=== PATIENT | male | born 1950 | race Caucasian/White ===

== ENCOUNTER → 2018-01-03 07:11 | Outpatient (CLI) | payer MEDICARE, OTHER, SELFPAY ==
--- NOTE | 2018-01-03 | DI.MRI.S_ITS ---
PROCEDURE: MR KNEE LT WO CON INDICATIONS: INTERNAL DERANGEMENT OF LEFT KNEE TECHNIQUE: Noncontrast sagittal PD fast spin echo and T2 fast spin echo with fat saturation, sagittal 3-D FLASH with fat saturation; coronal T1 spin echo and PD fast spin echo with fat saturation, and axial PD fast spin echo with fat saturation through the knee. COMPARISON: None. FINDINGS: Image quality: Excellent. Menisci: There is radial tearing of the posterior horn medial meniscus at the meniscal root ligament insertion site. There is a horizontally oriented linear high T2 signal intensity traversing the posterior horn medial meniscus, with superior articular surface extension, indicating horizontal tearing. Lateral meniscal body demonstrates degenerative fraying of the free edge, and is otherwise intact. Cruciate ligaments: The anterior and posterior cruciate ligaments appear intact. Medial structures: The medial collateral ligament appears intact. The posterior oblique ligament, semimembranosus tendon insertions, oblique popliteal ligament, and meniscocapsular junction appear intact. Visualized portions of the pes anserinus tendons appear normal. Moderate medial bursal fluid. 27 mm diameter ganglion cyst at the posterior medial aspect of the medial femoral condyle. Lateral structures: The lateral collateral ligament, long and short heads of the biceps femoris tendon appear intact. The popliteus tendon appears normal; the popliteofibular ligament appears intact. The posterosuperior and anteroinferior popliteomeniscal fascicles appear intact. The arcuate and fabellofibular ligaments appear intact, on either side of the lateral inferior geniculate artery. Iliotibial band appears normal. Anterior structures: The quadriceps and patellar tendons appear intact. Patellar alignment is normal. No femoral trochlear dysplasia or ventral trochlear prominence. No edema in the infrapatellar fat pad. Bones and cartilage: No bone marrow contusions or fractures. Mild articular cartilage loss overlies the patellar apex. Moderate to severe diffuse articular cartilage loss overlies the weightbearing aspects of the medial femoral condyle and medial tibial plateau. Joint space: There is a small knee joint effusion. No London's cyst. Normal appearing synovial plicae are incidentally noted. IMPRESSION: 1. Medial meniscal tearing. 2. Degenerative fraying of the free edge of the lateral meniscal body. 3. Medial and patellofemoral compartment cartilage loss. 4. Medial bursitis. 5. Small knee joint effusion. Ganglion cyst adjacent to the medial femoral condyle. Dictated by: Emerald Willoughby M.D. on 01/03/2018 at 12:11 Approved by: Emerald Willoughby M.D. on 01/03/2018 at 12:44
== END ==
PROVIDERS: Family Provider Internal Medicine; PCP Internal Medicine; Visit Provider Orthopaedic Surgery
DX: S83.242A Other tear of medial meniscus, current injury, left knee, initial encounter (principal); M70.52 Other bursitis of knee, left knee; M25.462 Effusion, left knee; M67.462 Ganglion, left knee
CPT/HCPCS: 73721

== ENCOUNTER → 2018-01-23 08:53 | Outpatient (CLI) | payer MEDICARE, OTHER, SELFPAY ==
[2018-01-23 09:38] LABS: Add Manual Diff / Slide Review NO; Basophils Percent Auto 0.6 % (0-2); Eosinophils Percent Auto 1.6 % (2-4); Hematocrit 43.6 % (41-53); Lymphocytes Percent Auto 23.5 % (25-40); Mean Corpuscular HGB Conc 34.3 % (30-36); Mean Corpuscular Hemoglobin 31.5 PG (26-34); Mean Corpuscular Volume 91.9 fL (80-100); Monocytes Percent Auto 8.2 % (3-14); Neutrophils Absolute Auto 3400 /uL (3000-5900); Neutrophils Percent Auto 66.1 % (50-75); Platelet Count 201 X10^3/uL (150-400); Red Blood Cell Count 4.75 X10^6/uL (4.5-5.9); Red Cell Distribution Width 13.4 % (11.6-14.8); White Blood Cell Count 5.1 X10^3/uL (4.5-11.0)
[2018-01-23 10:04] LABS: Alanine Aminotransferase 36 IU/L (21-72); Albumin 4.1 g/dL (3.5-5.0); Albumin Globulin Ratio 1.6 (1.0-2.8); Alkaline Phosphatase 53 U/L (38-126); Aspartate Aminotransferase 23 IU/L (17-59); BUN Creatinine Ratio 34.3 (6-22); Bilirubin Total 1.3 mg/dL (0.2-1.3); Blood Urea Nitrogen 24 mg/dL (9-20); Calcium 9.1 mg/dL (8.4-10.2); Carbon Dioxide 26 mmol/L (22-32); Chloride 101 mmol/L (98-107); Cholesterol 160 mg/dL (140-199); Estimated Glomerular Filt Rate > 60.0 mL/min (>60); Globulin 2.5 g/dL (1.7-4.1); Glucose 97 mg/dL (80-110); HDL Cholesterol 57 mg/dL (40-60); HEMOLYSIS < 15 (0-50); LDL Cholesterol Calculated 83 mg/dL (<100); Potassium 4.5 mmol/L (3.4-5.1); Sodium 138 mmol/L (137-145); Total Protein 6.6 g/dL (6.3-8.2); Triglycerides 99 mg/dL (35-150)
== END ==
PROVIDERS: Family Provider Internal Medicine; PCP Internal Medicine; Visit Provider Internal Medicine
DX: I25.10 Atherosclerotic heart disease of native coronary artery without angina pectoris (principal); I10 Essential (primary) hypertension; N40.1 Benign prostatic hyperplasia with lower urinary tract symptoms
CPT/HCPCS: 36415; 80053; 80061; 84153; 85025

== ENCOUNTER → 2018-03-01 07:21 | Outpatient (CLI) | payer MEDICARE, OTHER, SELFPAY ==
--- NOTE | 2018-03-01 | DI.MRI.S_ITS ---
PROCEDURE: MR LUMBAR SPINE WO CON INDICATIONS: STRAIN OF MUSCLE FASCIA/TENDON LOWER BACK TECHNIQUE: Noncontrast sagittal T1 spin echo and T2 fast echo, sagittal STIR, axial T1 and T2 fast spin echo through the lumbar spine. In cases with scoliosis, additional coronal T2 fast spin echo may be performed. COMPARISON: [facility], , L-SPINE WITHOUT CONTRAST, 11/18/2013, 9:22. FINDINGS: Image quality: Excellent. Alignment and Curvature: No plain films are available for comparison, for numbering purposes. Thus, for the purposes of this examination, 5 lumbar type vertebral bodies will be presumed. This should be confirmed with plain films, prior to any lumbar spinal intervention.There is mild grade 1 retrolisthesis of L1 on L2, L2 on L3, and L3 on L4. Mild grade 1 anterolisthesis of L4 on L5. Mild grade 1 retrolisthesis of L5 on S1. Bone Marrow: Marrow is of normal overall signal. No acute vertebral body compression fractures. Moderate reactive signal within the endplates adjacent to the L5-S1 intervertebral discs. Mild reactive signal within the endplates adjacent to the L2-L3, L3-L4, and L4-L5 intervertebral discs. Spinal Cord: Conus medullaris terminates at the L1-L2 disc space level. Visualized cord demonstrates normal signal and size. Paraspinous Soft Tissues: No paravertebral masses. L1-L2: Mild disc desiccation and diffuse disc bulge, with superimposed left paracentral protrusion. Mild facet and ligamentum flavum hypertrophy. Mild canal stenosis. Mild bilateral foraminal stenosis. No change. L2-L3: Moderate disc height loss and desiccation. Moderate diffuse disc bulge. Mild facet hypertrophy. Moderate ligamentum flavum hypertrophy. Mild epidural lipomatosis. There is increased, moderate canal stenosis. There is increased, mild left and moderate right foraminal stenosis. L3-L4: Moderate disc desiccation and diffuse disc bulge. Mild disc height loss. Moderate facet and ligament hypertrophy. Mild epidural lipomatosis. There is increased, severe canal stenosis. There is increased, moderate foraminal stenosis bilaterally, right portal and left. L4-L5: Mild disc desiccation and disc height loss. Mild diffuse disc bulge. Moderate facet and ligamentum flavum hypertrophy. Increased, moderate canal stenosis. Increased, mild foraminal stenosis bilaterally. L5-S1: Severe disc height loss and desiccation. Moderate diffuse disc bulge/osteophyte. Mild facet hypertrophy bilaterally. Mild canal stenosis. Mild foraminal stenosis bilaterally. No change. IMPRESSION: 1. Plain films of the lumbar spine are recommended for numbering purposes, prior to any lumbar spinal intervention. 2. Multilevel degenerative disc and facet disease, ligamentum flavum hypertrophy, and epidural lipomatosis. 3. Increased, severe L3-L4 canal stenosis. Increased, moderate L2-L3 and L4-L5 canal stenoses. 4. Multilevel foraminal stenoses, worst at L3-L4 bilaterally. Dictated by: Emerald Willoughby M.D. on 03/01/2018 at 9:02 Approved by: Emerald Willoughby M.D. on 03/01/2018 at 9:08
== END ==
PROVIDERS: Family Provider Internal Medicine; PCP Internal Medicine; Visit Provider Physician Assistant Surgical
DX: S39.012A Strain of muscle, fascia and tendon of lower back, initial encounter (principal); M51.36 Other intervertebral disc degeneration, lumbar region; M48.061 Spinal stenosis, lumbar region without neurogenic claudication
CPT/HCPCS: 72148

== ENCOUNTER → 2018-05-23 11:11 | Outpatient (CLI) | payer MEDICARE, OTHER, SELFPAY ==
[2018-05-23 12:09] LABS: Add Manual Diff / Slide Review NO; Basophils Percent Auto 0.6 % (0-2); Eosinophils Percent Auto 0.8 % (2-4); Hematocrit 44.4 % (41-53); Lymphocytes Percent Auto 22.9 % (25-40); Mean Corpuscular HGB Conc 33.7 % (30-36); Mean Corpuscular Hemoglobin 31.6 PG (26-34); Mean Corpuscular Volume 93.6 fL (80-100); Neutrophils Absolute Auto 3000 /uL (3000-5900); Neutrophils Percent Auto 66.7 % (50-75); Platelet Count 221 X10^3/uL (150-400); Red Blood Cell Count 4.75 X10^6/uL (4.5-5.9); Red Cell Distribution Width 13.4 % (11.6-14.8); White Blood Cell Count 4.5 X10^3/uL (4.5-11.0)
[2018-05-23 12:35] LABS: Alanine Aminotransferase 46 IU/L (21-72); Albumin 4.4 g/dL (3.5-5.0); Alkaline Phosphatase 43 U/L (38-126); Aspartate Aminotransferase 28 IU/L (17-59); Bilirubin Total 1.3 mg/dL (0.2-1.3); Globulin 2.2 g/dL (1.7-4.1); HEMOLYSIS < 15 (0-50); Total Protein 6.6 g/dL (6.3-8.2)
== END ==
PROVIDERS: Family Provider Internal Medicine; PCP Internal Medicine; Visit Provider Podiatrist
DX: B35.1 Tinea unguium (principal)
CPT/HCPCS: 36415; 80076; 85025

== ENCOUNTER → 2018-07-09 11:43 | Outpatient (CLI) | payer MEDICARE, OTHER, SELFPAY ==
[2018-07-09 12:06] LABS: Add Manual Diff / Slide Review NO; Basophils Percent Auto 0.7 % (0-2); Eosinophils Percent Auto 0.7 % (2-4); Hematocrit 43.5 % (41-53); Hemoglobin 14.8 g/dL (13.5-17.5); Lymphocytes Percent Auto 26.7 % (25-40); Mean Corpuscular HGB Conc 33.9 % (30-36); Mean Corpuscular Hemoglobin 31.4 PG (26-34); Mean Corpuscular Volume 92.5 fL (80-100); Monocytes Percent Auto 8.7 % (3-14); Neutrophils Absolute Auto 2600 /uL (3000-5900); Neutrophils Percent Auto 63.2 % (50-75); Platelet Count 198 X10^3/uL (150-400); Red Blood Cell Count 4.71 X10^6/uL (4.5-5.9); Red Cell Distribution Width 13.2 % (11.6-14.8); White Blood Cell Count 4.1 X10^3/uL (4.5-11.0)
[2018-07-09 13:07] LABS: Alanine Aminotransferase 37 IU/L (21-72); Albumin 4.2 g/dL (3.5-5.0); Albumin Globulin Ratio 1.9 (1.0-2.8); Alkaline Phosphatase 45 U/L (38-126); Aspartate Aminotransferase 22 IU/L (17-59); Bilirubin Total 0.9 mg/dL (0.2-1.3); Bilirubin Unconjugated 0.7 mg/dL (0.0-1.1); Globulin 2.2 g/dL (1.7-4.1); HEMOLYSIS < 15 (0-50); Total Protein 6.4 g/dL (6.3-8.2)
== END ==
PROVIDERS: Family Provider Internal Medicine; PCP Internal Medicine; Visit Provider Podiatrist
DX: B35.1 Tinea unguium (principal); B35.3 Tinea pedis
CPT/HCPCS: 36415; 80076; 85025

== ENCOUNTER → 2018-09-02 13:18 | Outpatient (CLI) | payer MEDICARE, OTHER, SELFPAY ==
[2018-09-02 14:27] LABS: Hematocrit 45.6 % (41-53); Hemoglobin 15.5 g/dL (13.5-17.5); Mean Corpuscular HGB Conc 34.1 % (30-36); Mean Corpuscular Hemoglobin 31.8 PG (26-34); Mean Corpuscular Volume 93.4 fL (80-100); Platelet Count 200 X10^3/uL (150-400); Red Blood Cell Count 4.88 X10^6/uL (4.5-5.9); Red Cell Distribution Width 13.7 % (11.6-14.8); White Blood Cell Count 4.5 X10^3/uL (4.5-11.0)
[2018-09-02 14:37] LABS: BUN Creatinine Ratio 23.8 (6-22); Blood Urea Nitrogen 19 mg/dL (9-20); Calcium 9.4 mg/dL (8.4-10.2); Carbon Dioxide 28 mmol/L (22-32); Chloride 99 mmol/L (98-107); Estimated Glomerular Filt Rate > 60.0 mL/min (>60); Glucose 82 mg/dL (80-110); HEMOLYSIS < 15 (0-50); Potassium 4.4 mmol/L (3.4-5.1); Sodium 137 mmol/L (137-145)
== END ==
PROVIDERS: Family Provider Internal Medicine; PCP Internal Medicine; Referring Provider Orthopaedic Surgery; Visit Provider Orthopaedic Surgery
DX: Z01.818 Encounter for other preprocedural examination (principal)
CPT/HCPCS: 36415; 80048; 85027; 93005

== ENCOUNTER 2018-09-17 05:39 | Inpatient (IN) | payer MEDICARE, OTHER, SELFPAY ==
[2018-09-11 12:47] VITALS: BMI 26.6
[2018-09-17] VITALS (20 sets, daily range): BP systolic 83–137; BP diastolic 40–80; PULSE 64–87; RESP 6–19; TEMP 36.3–36.9; O2SAT 93–100; BMI 26.6
[2018-09-17] MEDS: LACTATED RINGERS 1,000 ML 42 ML IV ×3 (07:34→12:48)
--- NOTE | 2018-09-17 07:40 | PC.NURSE ---
Day shift: Pt is not on AC unit at this time.
[2018-09-17] MEDS: CEFAZOLIN 2 GM/100 ML FROZ.PIGGY IV ×3 (07:47→23:50)
--- NOTE | 2018-09-17 07:49 | PM.PREOP ---
Pre-operative Note Interval Note History & Physical reviewed/Exam performed by Physician: Yes Changes to H&P: No
--- NOTE | 2018-09-17 08:40 | SUR.OPER ---
Prone on spine table, head in foam head support, padded chest and pelvic supports, gel pad at knees, lower legs supported by pillows; nipples, genitalia and toes free of pressure, arms secured on foam padded arm boards at <90 degrees abduction. Tape over blanket at thigh secured to table.
[2018-09-17] MEDS: VANCOMYCIN 1,000 MG VIAL 1000 MG TOP (08:52)
[2018-09-17] MEDS: SODIUM CHLORIDE 0.9% 1,000 ML, GENTAMICIN 80 MG IRR (08:53)
[2018-09-17] MEDS: BUPIVACAINE 0.5% (PF) 4 ML, MORPHINE-PF 4 MG, BUTORPHANOL 1 MG, fentaNYL 100 MCG INJ (08:57)
[2018-09-17] MEDS: THROMBIN (RECOMBINANT) 5,000 UNIT VIAL 5000 UNIT TOP (08:59)
--- NOTE | 2018-09-17 11:32 | PM.OP.1 ---
Operative Date/Time/Diagnoses Date of procedure: 09/17/18 Time of procedure: 11:32 Pre-op diagnosis: Lumbar stenosis with radiculopathy Lumbar spondylolisthesis History lumbar laminectomy Post-op diagnosis: same Procedure & Clinicians Procedure: L4-5 revision laminectomy L3-4 laminectomy L4-5 TLIF (post/post innerbody fusion) with cage L4, L5 screws Iliac crest bone graft Use of microscope Placement of epidural catheter Same procedure as scheduled: Yes Indications: [age] year old male with intractable pain from stenosis. They had failed conservative management and requested operative intervention. Risks and benefits of surgery were discussed and appropriate consents were obtained. Surgeon: Inderjit Allison Inspector Purchased Parts: Parisa Nguyen Anesthesia Type: General Operative Notes Findings: None Closure Type: primary Specimen(s): none sent Prosthetic devices, grafts, tissues, transplants, or devices: Nuvasive Reline MAS screws Globus rise cage Applied: catheter Estimated Blood Loss (mL): 20 Procedure in detail: The patient was brought to the operating room and intubated on the table. A time-out was performed. They were then rolled over to the well-padded Reese table in the prone position. Preoperative antibiotics were given. The back was prepped and draped in the standard sterile fashion. Using fluoroscopy, a 4 cm longitudinal incision was made to the right of the midline. We used Bovie to come down to and split the lumbodorsal fascia. Using fluoroscopy and monitoring, we then percutaneously placed Jamshidi needles down the pedicles of L4 and L5 on the right side. These were changed out to guidewires and then we tapped and then placed the NuVasive MAS Reline screw shanks. We then opened up the retractors and used Bovie to clear up the posterolateral gutter as well as medially along the lamina to the spinous processes. A bur was used to decorticate the transverse processes. We brought in the microscope. Using a combination of bur and Kerrison rongeurs, a revision laminectomy was performed from the right side. There is large amount of scar in the inferior aspect of this decompression that had come up from his previous laminectomy. We had to work carefully dissect the scar tissue out of the way and freed off the nerve roots and also to free up the dura. Therefore this was separate and distinct from a standard approach as this was revision decompression level. We cleared over past the midline and carefully depressed the dura until we were able to decompress the opposite side. We cleared out the neural foramen. This completed the laminectomy at L4-5. We then began the TLIF prep. A complete facetectomy was performed on this side at L4-5. We carefully cleaned up the remainder of the foramen until we could easily retract the exiting root as well as clearing medially below the dura and expose the disc space. The disc was prepped with bipolar and then an annulotomy was performed. We performed a diskectomy using a combination of paddles, amado, pituitaries, and curettes. We distracted the disc using a paddle and locked the retractor in an open position. We then filled the disc space with Osteocel bone graft. We then placed the globus Rise cage under fluoroscopy and then filled this in with more bone graft. The distraction on the retractor was released to compress down. This completed the posterior interbody fusion portion of the TLIF at L4-5. We then removed the retractor blade from the L5 screw and then rotated the blade on the L4 screw to go cephalad and then used the retractor blade as well as the retractor system to expose the L3-4 level. We cleared off the soft tissue. We then brought in the microscope. A combination of a bur and Kerrisons were used to perform a L3-4 laminectomy. We carefully depress the dura and reach to the opposite side to completely decompress this. At the end we could swipe the ball probe cephalad caudally and into the neural foramen everything was opened. We then removed the retractor blades. We then placed the screw heads, ajay, and locked down the set screws. The wound was copiously irrigated. A small stab incision was made over the PSIS. We used a Jamshidi needle to aspirate several mL of bone marrow from the pelvis. This was mixed with the remaining Osteocell and combined with all of the locally harvested bone graft and placed in the posterolateral gutter for the posterior fusion of the TLIF at L4-5. An epidural catheter was then placed in the spinal canal by carefully depressing the dura and advancing it 6 cm cephalad under the remaining lamina of L3 without resistance. The muscle fascia was closed. The catheter was then injected with a solution containing 4 mL of 0.5% Marcaine, 1 mg Stadol, 4 mg Duramorph, and 100 mcg of fentanyl. This was injected without resistance and the catheter was pulled. We then went to the opposite side. Again using fluoroscopy, a 3 cm incision was made and Bovie was used to come down to split the fascia. Using neural monitoring and fluoroscopy, Jamshidi needles were advanced down the pedicles of L4 and L5 on the left side. These were switched over guidewires, tapped, and screws placed. We then placed a ajay and locked the set screws on this side. The wound was irrigated. The fascia was closed. Vancomycin powder was placed in the wounds. The superficial and skin were closed. A sterile dressing was placed. The patient was then rolled over extubated and brought to recovery room without complications. Complications: none Condition: stable Disposition: PACU Plan for aftercare: Inpatient. Up with physical therapy.
--- NOTE | 2018-09-17 11:58 | DI.RAD.S_ITS ---
PROCEDURE: XR LUMBAR SPINE 2-3V INDICATIONS: L4-5 TLIF TECHNIQUE: 2 views of the lumbar spine were acquired. COMPARISON: None. FINDINGS: There is discectomy and posterior fusion at L4-L5. Pedicular rods and fusion screws are in expected position. IMPRESSION: Discectomy and posterior fusion at L4-L5. Dictated by: Cornelia Macias M.D. on 09/17/2018 at 12:20 Approved by: Cornelia Macias M.D. on 09/17/2018 at 12:25
--- NOTE | 2018-09-17 12:06 | SUR.PHASEI ---
1ml tuan-synephrine given for map of [address] Seaman.
[2018-09-17] MEDS: HYDROMORPHONE 2 MG INJ 0.5 MG IV ×3 (12:32→13:08)
--- NOTE | 2018-09-17 12:34 | SUR.PHASEI ---
1ml tuan-synephrine given for map of 58
--- NOTE | 2018-09-17 13:05 | SUR.PHASEI ---
Report called to SARITA Maciel.
--- NOTE | 2018-09-17 13:29 | SUR.PHASEI ---
Pt transferred to the floor. Report to [facility]. VS stable. IV saline locked. Back dressing CDI. Belongings bag with patient.
--- NOTE | 2018-09-17 13:35 | PC.NURSE ---
Day shift: Arrived on unit from PACU at approx 1315. He is A&Ox3. States that he has some minor back dicomfort at this time. He spouse at bedside for support. VS ok. Using IS as directed. SCD's in place. Oriented to room and call light. 4x4 gauze with tegaderm is CDI at op-site. Kohli with clear yellow. Agrees to not get OOB w/o help from staff.
[2018-09-17] MEDS: LACTATED RINGERS 1,000 ML 125 ML IV ×2 (13:58→22:35)
[2018-09-17] MEDS: hydrOXYzine pamoate 25 MG CAPSULE PO ×2 (14:15→21:32)
[2018-09-17] MEDS: HYDROCODONE/ACET 5/325 TABLET 1 TAB PO ×2 (14:15→21:33)
--- NOTE | 2018-09-17 17:08 | PT.IIE ---
Current Diagnoses Spondylolisthesis, lumbar region (09/17/18) Spinal stenosis, lumbar region with neurogenic claudication (09/17/18) Surgery Performed Operation Date: 09/17/18 07:45 Actual Procedures p L3-4,L4-5 Laminectomy, L4-5 Instru. 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) Status post cataract extraction and insertion of intraocular lens of right eye (Acute 08/01/11) Medical History (Last Updated 09/11/18 @ 14:45 by Abigail Simon RN) Arthritis (Acute) Orantes's esophagus (Acute) CAD (coronary artery disease) (Acute) Depression (Acute) Excessive drinking alcohol (Acute) GERD (gastroesophageal reflux disease) (Acute) HTN (hypertension) (Acute) Heart murmur (Acute) Hyperlipidemia (Acute) Memory changes (Acute) Myocardial infarction (Acute ~2009) Numbness and tingling (Acute) Psoriasis (Acute) Seizures (Acute) Physical Therapy Inpatient Evaluation/Re-Eval M1 PT/OT-IP Prior Functional Status Start: 09/17/18 16:50 Freq: NEEDED Status: Active Protocol: Document 09/17/18 16:50 [facility] (Rec: 09/17/18 17:08 [facility] [id number]) Medical Review Prior Functional Status Medical History Reviewed Yes Diet/Fluid Consistency Regular Communication WNL Mobility and Gait Indep w/o AD but was limited in time spent standing & amb d /t LBP Activities of Daily Living and IADL's indep Social History Household Members spouse Living Arrangements Apartment/Condo Number of Floors (Floors) Two Floors Number of Stairs To Enter/Railing? 1STE through garage; has 2nd level to basement which he does sometimes go down to w/ rail. Home Environment Standard Height Toilet Walk in Shower Home Equipment Front Wheel Walker Straight Cane Raised Toilet Seat w/Armrests Shower Seat without Backrest Long Handled Shoe Horn Braille Transcriber Sock Aid Employment Status Retired M2 PT-IP Current Condition Start: 09/17/18 16:50 Freq: NEEDED Status: Active Protocol: Document 09/17/18 16:50 [facility] (Rec: 09/17/18 17:08 [facility] [id number]) Physical Therapy Current Condition Current Condition Evaluation Date 09/17/18 Treatment Diagnosis L4-5 TLIF Onset Date 09/17/18 Precautions Lumbar Precautions Log Roll No Twisting Limit Bending Lifting Restriction of 10 lbs Gait Belt above Incisional Area Weight Bearing Status Weight Bearing Status Weight Bear as Tolerated M3 PT-IP Subjective Start: 09/17/18 16:50 Freq: NEEDED Status: Active Protocol: Document 09/17/18 16:50 [facility] (Rec: 09/17/18 17:08 [facility] [id number]) Subjective Physical Therapy Visit Type Type Initial Evaluation Visit Start Time 16:00 Visit Stop Time 16:50 Total Visit Minutes 50 Number of ASW/ASUW TACTICAL AIR CONTROLLER Visits 0 Physical Therapy Visit Comments Patient Comments Pt agreeable to get up. Pt wants to get moving to try to work on getting better Therapy Pain Assessment Pain When Pain Assessed During Mobility Pain Present Pain Present Pain Reported M4 PT-IP Mobility and Gait Start: 09/17/18 16:50 Freq: NEEDED Status: Active Protocol: Document 09/17/18 16:50 [facility] (Rec: 09/17/18 17:08 [facility] [id number]) PT-Bed Mobility Assessment Rolling Type of Rolling Log Rolling Level of Assist Contact Guard Assistance Supine to Sit Supine to Sit Minimal Assistance Sit to Supine Sit to Supine Contact Guard Assistance Scooting Scooting to Edge of Bed Standby Assistance Scooting Up and Down in Bed Standby Assistance PT-Transfer Assessment Sit to and From Stand Sit to and from Stand Moderate Assistance Use of Upper Extremities Equipment Transfer Assistive Device Gait Belt Front Wheeled Walker Orthotic/Prosthetic Devices or Brace: No Transfers Transfer Destination Chair Transfer Technique Stand Step Pivot Transfer Ability Level of Assist Minimal Assistance Comments Mobility Comments Pt required mod A for sit to stand from bed and min A from chair. Min A for transfers with FWW d/t LE buckling PT-Balance Assessment Sitting Balance and Reactions Static Sitting Balance Ability Good Dynamic Sitting Balance Ability Fair Standing Balance and Reactions Static Standing Balance Ability Poor Dynamic Standing Balance Ability Poor Device Used FWW M5 PT-IP Objective Assessments Start: 09/17/18 16:50 Freq: NEEDED Status: Active Protocol: Document 09/17/18 16:50 [facility] (Rec: 09/17/18 17:08 [facility] [id number]) Orientation Orientation/Cognition Level of Alertness Alert Strength Lower Extremity Strength Assessment Bilaterally Impaired M6 PT-IP Treatment Start: 09/17/18 16:50 Freq: NEEDED Status: Active Protocol: Document 09/17/18 16:50 [facility] (Rec: 09/17/18 17:08 [facility] [id number]) Physical Therapy Treatment Education Education Provided Precautions Post-Op Packet Safety M7 PT-IP Assessment and Plan Start: 09/17/18 16:50 Freq: NEEDED Status: Active Protocol: Document 09/17/18 16:50 [facility] (Rec: 09/17/18 17:08 [facility] [id number]) PT Summary Assessment and Plan Potential Rehabilitation Potential Excellent Status of Condition at Evaluation Evolving Summary Impairments Pain ROM Strength Balance Bed Mobility Transfers Gait Assessment Summary Pt had L4-5 TLIF today and is very motivate to return to activity. He is very cooperative with therapist and was able to do bed mobility and transfer today with 1 PA and wa slimited by IVAN monzon and requiring assist to get standing. Goals Bed Mobility Goal Independent Transfer Goal Independent Gait Goal Independent Gait Distance 150ft Other Goals up/down 1 step without rail and 15 steps with rail SBA Days to Meet Goals 4 Frequency of Treatment Frequency Of Treatment Twice a Day Treatment Plan Physical Therapy Treatment Plan Bed Mobility Training Transfer Training Gait Training Therapeutic Exercise Balance Retraining Post Op Education Discharge Planning Hot or Cold Pack Neuromuscular Re-ed Manual Therapy Recommendations To Nursing Amount of Assist Needed 1 Person Assist Discharge Recommendations PT Discharge Recommendations Home with Assistance Outpatient PT
[2018-09-17] MEDS: HYDROCODONE/ACET 5/325 TABLET 2 TAB PO (17:14)
[2018-09-17] MEDS: ATORVASTATIN 20 MG TABLET 80 MG PO (21:25)
[2018-09-17] MEDS: SENNOSIDES 8.6 MG TABLET 17.2 MG PO (21:25)
[2018-09-17] MEDS: DOCUSATE 100 MG CAPSULE PO (21:25)
[2018-09-17] MEDS: lamoTRIgine 100 MG TABLET 150 MG PO (21:25)
[2018-09-17] MEDS: GABAPENTIN 600 MG TABLET PO (21:25)
--- NOTE | 2018-09-17 23:47 | PC.NURSE ---
Evening shift note: Manolo is oriented to situation, forgetful to events & sometimes asks nurse same question over again. Told me he normally has problems with short-term memory loss. CIWA score was 1 for auditory sensation to IV pump, patient at one point asked me to turn it off, instead I covered pump with blanket to lessen the noise which he said helped. VS stable. 2L o2 applied which is maintaining his sat 94-98% (desats when dozing to 85-88%) Continuous pulse ox monitoring in place. Cosmos through night DRIVER GUIDE noticed small erythemic spot on left cheek from NC, I applied soft gauze to NC to protect his cheeks. Back drsg CDI, logrolling technique reinforced. Tonight he wanted to stand up and stood at bedside with DRIVER GUIDE assist. Reporting pain 7/10, medicated with [place] 1 tab and Vistaril 1 tab which he says brings pain down to a 2, able to sleep intermittently throughout evening. Refused dinner, ate soup pudding & sandwich at bedtime, denies any nausea. IVF infusing to IV with no difficulty. Pt calm, cooperative & using call button appropriately. Reminded to call nurse for any needs/concerns.
--- NOTE | 2018-09-18 00:59 | PC.NURSE ---
Addendum entered by Geri Morales R.N. 09/18/18 04:22: Patient has been mostly sleeping. Now awake and states pain is 5/10; assisted to reposition onto left side and medicated with Vicodin + Vistaril. RA sat 100%. CMS remains intact. Has had SCD's off as machine kept alarming intermittently so now new SCD machine obtained and SCD's reapplied. Original Note: 0000 Patient is alert and oriented but has some short term memory loss and seems anxious. Breath sounds CTA; on oxygen at 1L/min per NC with sat of 99%. HRR. Denies nausea. BT present and passing flatus. Indwelling catheter is patent with good UOP of 1300cc on previous shift. Is able to move self in bed. Dressing to back is CDI. States pain is currently 2/10 and tolerable having just received Vicodin/Vistaril at 2132. CMS intact although feet are cool to touch. Foot SCD's on. CIWA score is 1. Fall risk score is moderate but due to STM problems bed alarm is activated.
[2018-09-18] MEDS: HYDROCODONE/ACET 5/325 TABLET 1 TAB PO (04:10)
[2018-09-18] MEDS: hydrOXYzine pamoate 25 MG CAPSULE PO ×2 (04:10→15:52)
[2018-09-18 04:19] VITALS: BP 125/65; PULSE 68; RESP 16; TEMP 36.6; O2SAT 100
[2018-09-18 06:15] LABS: Hematocrit 36.6 % (41-53); Hemoglobin 12.8 g/dL (13.5-17.5)
[2018-09-18 06:37] LABS: Blood Urea Nitrogen 14 mg/dL (9-20); Calcium 8.4 mg/dL (8.4-10.2); Carbon Dioxide 28 mmol/L (22-32); Chloride 101 mmol/L (98-107); Estimated Glomerular Filt Rate > 60.0 mL/min (>60); Glucose 118 mg/dL (80-110); HEMOLYSIS < 15 (0-50); Potassium 4.3 mmol/L (3.4-5.1); Sodium 136 mmol/L (137-145)
[2018-09-18 07:25] VITALS: BP 120/65; PULSE 76; RESP 16; TEMP 36.7; O2SAT 96
--- NOTE | 2018-09-18 08:07 | PM.PNPO.1 ---
Subjective Date Patient Seen: 09/18/18 Time Patient Seen: 08:07 Interval history: Pain is about a 3 laying in bed. No leg pain but he does feel weaker on the right leg. Exam Vital Signs (past 8 hours): - 09/18/18 04:19 Temperature 97.9 F Pulse Rate 68 Respiratory Rate 16 Blood Pressure 125/65 Pulse Oximetry 100 Oxygen Delivery Method Nasal Cannula Const Orientation: alert and oriented x3 Back/Spine/Pelvis Other: Dressing CDI. 5/5 motor both lower extremities except for 5-/5 right quadriceps Objective Labs Result Diagrams: 09/18/18 05:58 09/18/18 05:58 Labs: Laboratory Results - last 24 hr 09/18/18 09/18/18 05:58 05:58 Hgb 12.8 L Hct 36.6 L Sodium 136 L Potassium 4.3 Chloride 101 Carbon Dioxide 28 BUN 14 Creatinine 0.70 Estimated GFR > 60.0 BUN/Creatinine Ratio 20.0 Glucose 118 H Calcium 8.4 Assessment & Plan Post-op Postoperative Procedures Operation Date: 09/17/18 07:45 Actual Procedures Side Surgeon p L3-4,L4-5 Laminectomy, L4-5 Instru. fusion w/bone graft Inderjit Allison MD He is doing well. Some slight quadriceps weakness, most likely from retraction of the nerve root during surgery. He is able to walk on it, and we will continue with mobilization with physical therapy. Anticipate discharge home tomorrow. Quality VTE Deep Vein Thrombosis/Pulmonary Embolism Present on Admission: No
[2018-09-18] MEDS: HYDROCODONE/ACET 5/325 TABLET 2 TAB PO ×4 (08:08→20:31)
[2018-09-18] MEDS: lamoTRIgine 100 MG TABLET 150 MG PO ×2 (08:09→20:29)
[2018-09-18] MEDS: LISINOPRIL 10 MG TABLET PO (08:09)
[2018-09-18] MEDS: GABAPENTIN 600 MG TABLET PO ×2 (08:09→20:29)
[2018-09-18] MEDS: PANTOPRAZOLE 40 MG TABLET PO (08:10)
[2018-09-18] MEDS: DOCUSATE 100 MG CAPSULE PO ×2 (08:10→20:29)
[2018-09-18] MEDS: ASPIRIN EC 81 MG TABLET PO (08:10)
--- NOTE | 2018-09-18 09:24 | PT.IPTN ---
Current Diagnoses Spondylolisthesis, lumbar region (09/17/18) Spinal stenosis, lumbar region with neurogenic claudication (09/17/18) Surgery Performed Operation Date: 09/17/18 07:45 Actual Procedures p L3-4,L4-5 Laminectomy, L4-5 Instru. fusion w/bone graft - Inderjit Allison MD Physical Therapy Treatment Note M2 PT-IP Current Condition Start: 09/17/18 16:50 Freq: NEEDED Status: Active Protocol: Document 09/17/18 16:50 [facility] (Rec: 09/17/18 17:08 [facility] [id number]) Physical Therapy Current Condition Current Condition Evaluation Date 09/17/18 Treatment Diagnosis L4-5 TLIF Onset Date 09/17/18 Precautions Lumbar Precautions Log Roll No Twisting Limit Bending Lifting Restriction of 10 lbs Gait Belt above Incisional Area Weight Bearing Status Weight Bearing Status Weight Bear as Tolerated M3 PT-IP Subjective Start: 09/17/18 16:50 Freq: NEEDED Status: Active Protocol: Document 09/18/18 09:24 AB (Rec: 09/18/18 12:14 AB [email or web address]) Subjective Physical Therapy Visit Type Type Treatment Note Visit Start Time 09:24 Visit Stop Time 10:08 Total Visit Minutes 44 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 Physical Therapy Visit Comments Patient Comments pt agreeable to do PT Therapy Pain Assessment Pain When Pain Assessed At Rest Pain Present Pain Present Pain Reported Location Back Intensity 3 Scale Used Numeric (1 - 10) M4 PT-IP Mobility and Gait Start: 09/17/18 16:50 Freq: NEEDED Status: Active Protocol: Document 09/18/18 09:24 AB (Rec: 09/18/18 12:14 AB [email or web address]) PT-Bed Mobility Assessment Sit to Supine Sit to Supine Standby Assistance 1 Person Assistance PT-Transfer Assessment Sit to and From Stand Sit to and from Stand Maximum Assistance 1 Person Assistance Use of Upper Extremities Equipment Transfer Assistive Device Gait Belt Front Wheeled Walker Orthotic/Prosthetic Devices or Brace: No Transfers Transfer Destination Bed Transfer Technique Stand Step Pivot Transfer Ability Level of Assist Maximum Assistance 1 Person Assistance Use of Upper Extremities Comments Mobility Comments pt requested to go back to bed after tx session. completed stand step pivot transfer using FWW max A and max cues to prevent R knee from buckling. pt has decrease safety awareness and requires constant cues for safety. pt completed sit to supine SBA and cues for techniques. positioned pt in bed. call light and table within reach. bed alarm set. left pt with spouse. Gait Assessment Gait Gait Assistance Required: Maximum Assistance 1 Person Assist Distance (Feet) 10 Able to Maintain Weight Bearing Status Yes During Gait Assistive Devices Assistive Device Gait Belt Front Wheeled Walker Orthotic/Prosthetic Devices or Brace: No Gait Deviations General Gait Pattern Decreased Feet Clearance Step-to Gait Factors Limiting Gait Function Factors Limiting Gait Function Decreased Activity Tolerance Decreased Strength Difficulty Following Directions Limited Range of Motion Pain Poor Balance Poor Safety Awareness Comments Gait Comments Pt completed sit to stand x 3 max A and max cues for techniques. completed static standing activity to improve RLE control. pt completed ambulation 10 ft x 2 using FWW max A and max cues requiring assist to prevent R knee from buckling. M5 PT-IP Objective Assessments Start: 09/17/18 16:50 Freq: NEEDED Status: Active Protocol: Document 09/17/18 16:50 LR (Rec: 09/17/18 17:08 [facility] [id number]) Orientation Orientation/Cognition Level of Alertness Alert Strength Lower Extremity Strength Assessment Bilaterally Impaired M6 PT-IP Treatment Start: 09/17/18 16:50 Freq: NEEDED Status: Active Protocol: Document 09/18/18 09:24 AB (Rec: 09/18/18 12:14 AB [email or web address]) Physical Therapy Treatment Exercises Exercises Seated Knee Flexion/Extension Education Education Provided Precautions Weight Bearing Status Safety M7 PT-IP Assessment and Plan Start: 09/17/18 16:50 Freq: NEEDED Status: Active Protocol: Document 09/18/18 09:24 AB (Rec: 09/18/18 12:14 AB [email or web address]) PT Summary Assessment and Plan Potential Rehabilitation Potential Fair Summary Impairments Pain ROM Strength Balance Coordination Sensation Tone Cognition Bed Mobility Transfers Gait Activity Tolerance Progress Towards Goals Slow Progress - Other Assessment Summary pt requiring max A with mobility and has (+) R knee buckling. Pt requires max cues for safety. Pt at this time will require SNF rehab to improve strength and functional independence. Goals Bed Mobility Goal Standby Assistance Transfer Goal Standby Assistance Front Wheeled Walker Gait Goal Standby Assistance Front Wheel Walker Gait Distance 125 Other Goals up/down 1 step without rail and 15 steps with rail SBA Days to Meet Goals 5 Frequency of Treatment Frequency Of Treatment Twice a Day Treatment Plan Physical Therapy Treatment Plan Bed Mobility Training Transfer Training Gait Training Therapeutic Exercise Balance Retraining Post Op Education Discharge Planning Hot or Cold Pack Neuromuscular Re-ed Manual Therapy Other Recommendations and Next Treatment bed mobility, ambulation Focus Recommendations To Nursing Amount of Assist Needed 2 Person Assist Discharge Recommendations PT Discharge Recommendations Home with Assistance Outpatient PT
[2018-09-18 11:18] VITALS: BP 103/55; PULSE 63; RESP 16; TEMP 36.8; O2SAT 94
--- NOTE | 2018-09-18 14:40 | PT.IPTN ---
Current Diagnoses Spondylolisthesis, lumbar region (09/17/18) Spinal stenosis, lumbar region with neurogenic claudication (09/17/18) Surgery Performed Operation Date: 09/17/18 07:45 Actual Procedures p L3-4,L4-5 Laminectomy, L4-5 Instru. fusion w/bone graft - Inderjit Allison MD Physical Therapy Treatment Note M2 PT-IP Current Condition Start: 09/17/18 16:50 Freq: NEEDED Status: Active Protocol: Document 09/17/18 16:50 [facility] (Rec: 09/17/18 17:08 [facility] [id number]) Physical Therapy Current Condition Current Condition Evaluation Date 09/17/18 Treatment Diagnosis L4-5 TLIF Onset Date 09/17/18 Precautions Lumbar Precautions Log Roll No Twisting Limit Bending Lifting Restriction of 10 lbs Gait Belt above Incisional Area Weight Bearing Status Weight Bearing Status Weight Bear as Tolerated M3 PT-IP Subjective Start: 09/17/18 16:50 Freq: NEEDED Status: Active Protocol: Document 09/18/18 14:40 AB (Rec: 09/18/18 15:20 AB [email or web address]) Subjective Physical Therapy Visit Type Type Treatment Note Visit Start Time 14:40 Visit Stop Time 15:05 Total Visit Minutes 25 Number of TEXTILE SCRAP SALVAGER Visits 0 Physical Therapy Visit Comments Patient Comments pt agreeable to do PT Therapy Pain Assessment Pain When Pain Assessed At Rest Pain Present Pain Present Pain Reported Location Back Intensity 7 Scale Used Numeric (1 - 10) Description Sharp Tightness Pain Management Techniques Re-positioning Timing of Activity with Medications M4 PT-IP Mobility and Gait Start: 09/17/18 16:50 Freq: NEEDED Status: Active Protocol: Document 09/18/18 14:40 AB (Rec: 09/18/18 15:20 AB [email or web address]) PT-Bed Mobility Assessment Sit to Supine Sit to Supine Standby Assistance PT-Transfer Assessment Sit to and From Stand Sit to and from Stand Maximum Assistance 1 Person Assistance Equipment Transfer Assistive Device Gait Belt Front Wheeled Walker Gait Assessment Gait Gait Assistance Required: Minimum Assistance Moderate Assistance Distance (Feet) 35 Able to Maintain Weight Bearing Status Yes During Gait Assistive Devices Assistive Device Gait Belt Front Wheeled Walker Orthotic/Prosthetic Devices or Brace: No Gait Deviations General Gait Pattern Antalgic Decreased Stride Length Decreased Feet Clearance Factors Limiting Gait Function Factors Limiting Gait Function Decreased Activity Tolerance Decreased Strength Difficulty Following Directions Limited Range of Motion Pain Poor Balance Poor Safety Awareness Comments Gait Comments pt completed ambulation 35 ft using FWW min to mod A and max cues to prevent R knee buckling. pt with (+) R knee slight buckling x 3 with mod A to stabilize knee. M5 PT-IP Objective Assessments Start: 09/17/18 16:50 Freq: NEEDED Status: Active Protocol: Document 09/17/18 16:50 LR (Rec: 09/17/18 17:08 [facility] [id number]) Orientation Orientation/Cognition Level of Alertness Alert Strength Lower Extremity Strength Assessment Bilaterally Impaired M6 PT-IP Treatment Start: 09/17/18 16:50 Freq: NEEDED Status: Active Protocol: Document 09/18/18 14:40 AB (Rec: 09/18/18 15:20 AB [email or web address]) Physical Therapy Treatment Exercises Exercises Quad Sets Education Education Provided Precautions Safety M7 PT-IP Assessment and Plan Start: 09/17/18 16:50 Freq: NEEDED Status: Active Protocol: Document 09/18/18 14:40 AB (Rec: 09/18/18 15:20 AB [email or web address]) PT Summary Assessment and Plan Potential Rehabilitation Potential Fair Summary Impairments Pain ROM Strength Balance Coordination Sensation Tone Cognition Bed Mobility Transfers Gait Activity Tolerance Progress Towards Goals Slow Progress - Other Assessment Summary pt improving slowly requiring mod A but continues to have R knee buckling. set up caregiver training tomorrow ~ 930/1000 am if appropriate. d /c plan depending on progress and if spouse will be able to safely assist pt at home. Goals Bed Mobility Goal Standby Assistance Transfer Goal Standby Assistance Front Wheeled Walker Gait Goal Standby Assistance Front Wheel Walker Gait Distance 125 Other Goals up/down 1 step without rail and 15 steps with rail SBA Days to Meet Goals 5 Frequency of Treatment Frequency Of Treatment Twice a Day Treatment Plan Physical Therapy Treatment Plan Bed Mobility Training Transfer Training Gait Training Therapeutic Exercise Balance Retraining Post Op Education Discharge Planning Hot or Cold Pack Neuromuscular Re-ed Manual Therapy Other Recommendations and Next Treatment bed mobility, ambulation Focus Recommendations To Nursing Amount of Assist Needed 2 Person Assist Discharge Recommendations PT Discharge Recommendations Home with 24/7 Assist Home Health SNF Rehab Other Discharge Recommendations depending on progress: SNF vs home with 24/7 and homehealth PT
--- NOTE | 2018-09-18 14:55 | OT.IP.EVAL ---
Current Diagnoses Spondylolisthesis, lumbar region (09/17/18) Spinal stenosis, lumbar region with neurogenic claudication (09/17/18) Surgery Performed Operation Date: 09/17/18 07:45 Actual Procedures p L3-4,L4-5 Laminectomy, L4-5 Instru. fusion w/bone graft - Inderjit Allison MD Past Medical History (Last Updated 09/11/18 @ 14:45 by Abigail Simon, RN) Arthritis (Acute) Orantes's esophagus (Acute) CAD (coronary artery disease) (Acute) Depression (Acute) Excessive drinking alcohol (Acute) GERD (gastroesophageal reflux disease) (Acute) HTN (hypertension) (Acute) Heart murmur (Acute) Hyperlipidemia (Acute) Memory changes (Acute) Myocardial infarction (Acute ~2009) Numbness and tingling (Acute) Psoriasis (Acute) Seizures (Acute) Surgical History (Last Updated 09/11/18 @ 13:22 by Abigail Simon, RN) History of vasectomy (Acute) Hx of appendectomy (Acute) Hx of heart artery stent (Acute ~2009) Hx of hernia repair (Acute) Hx of microdiscectomy (Acute ~1993) Hx of tonsillectomy (Acute) 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) Status post cataract extraction and insertion of intraocular lens of right eye (Acute 08/01/11) Occupational Therapy Inpatient Evaluation/Re-Eval M1 PT/OT-IP Prior Functional Status Start: 09/17/18 16:50 Freq: NEEDED Status: Active Protocol: Document 09/18/18 14:55 [email or web address] (Rec: 09/19/18 07:48 PJM [id number]) Medical Review Prior Functional Status Medical History Reviewed Yes Diet/Fluid Consistency Regular Communication WNL Mobility and Gait Indep w/o AD but was limited in time spent standing & amb due to LBP Activities of Daily Living and IADL's independent with all self care , assists w/IADLs due to pt's LBP Prior Functional Level (Other details) can provide assist 24/7 after d/c. Social History Household Members spouse Living Arrangements Apartment/Condo Number of Floors (Floors) Two Floors Number of Stairs To Enter/Railing? 1 stair to enter through garage, pt can stay on main level of home Home Environment Standard Height Toilet Walk in Shower Home Equipment Front Wheel Walker Straight Cane Raised Toilet Seat w/Armrests Shower Seat without Backrest Hand Held Shower Long Handled Sponge [employer] Compliance Manager Sock Aid Grab Bars In Shower Employment Status Retired M2 OT-IP Current Condition Start: 09/19/18 07:27 Freq: Status: Active Protocol: Document 09/18/18 14:55 PJM (Rec: 09/19/18 07:48 PJM [id number]) Occupational Therapy Current Condition Current Condition Evaluation Date 09/18/18 Treatment Diagnosis decreased self care, mobility s/p L3-4, L4-5 lami with L4-5 fusion Post Operative Precautions Lumbar Precautions Log Roll No Twisting Limit Bending Lifting Restriction of 10 lbs Gait Belt above Incisional Area M3 OT- IP Subjective and Pain Start: 09/19/18 07:27 Freq: Status: Active Protocol: Document 09/18/18 14:55 PJM (Rec: 09/19/18 07:48 PJM [id number]) OT- Subjective Occupational Therapy Visit Type Type Initial Evaluation Visit Start Time 14:15 Visit Stop Time 14:55 Total Visit Minutes 40 Occupational Therapy Visit Comments Patient Comments Does it usually hurt this much? Patient/Caregiver Goals to have less back pain during daily activities and standing OT Pain Assessment Pain When Pain Assessed After Treatment Pain Present Pain Present Pain Reported Location Back Intensity 8 Scale Used Numeric (1 - 10) Description Aching Acute Management Techniques Distraction Re-positioning Timing of Activity with Medications M4 OT- IP ADL's Start: 09/19/18 07:27 Freq: Status: Active Protocol: Document 09/18/18 14:55 PJM (Rec: 09/19/18 07:48 PJ [id number]) OT [id number] General Evaluation Self-Feeding Ability Independent OT ADL-Grooming General Evaluation Grooming Ability Standby Assistance Areas Needing Assistance Face Washing Comments OT Grooming Comments after set up in bed or chair, pt reports limited standing tolerance prior to surgery due to LBP OT ADL-Oral Care Comments Oral Care Comments did not occur this session OT ADL-Dressing General Eval Upper Body Dressing Ability Standby Assistance Lower Body Dressing Ability Total Assistance Areas Needing Assistance Retrieving/Set-up of Clothing Socks Comments OT Dressing Comments Began education with pt and re: lower body dressing within lumbar spine precautions. OT ADL-Toileting General Evaluation Toileting Ability Total Assistance Areas Needing Assistance Empty Catheter or Colostomy Comments OT Toileting Comments jones still in place OT ADL-Bathing Comments OT Bathing Comments to be assessed as activity tolerance improves M5 OT- IP IADL's Start: 09/19/18 07:27 Freq: Status: Active Protocol: Document 09/18/18 14:55 PJM (Rec: 09/19/18 07:48 PJ [id number]) OT-Instrumental Activities of Daily Living Deficits IADL Deficits Identified Deficits Home Safety Awareness Awareness of Need for Assistance at Home Good Awareness Medication Management Medication Management Caregiver Provides Supervision Medication Management Comments pt states he can be forgetful Money Management Money Management Caregiver Provides Supervision Meal Preparation Meal Preparation Caregiver Provides Assist [employer] Department Supervisor [employer] Department Supervisor Caregiver Provides Assist Driving Driving Caregiver Provides Assist Driving Comments to assist until pt able M6 OT- IP Functional Cognition Start: 09/19/18 07:27 Freq: Status: Active Protocol: Document 09/18/18 14:55 PJM (Rec: 09/19/18 07:48 PJ [id number]) Cognitive Factors Limiting Selfcare Function Cognitive Ability Level of Alertness Alert Attention Span Ability Capable of Focused Attention Ability to Follow Commands Able to Follow One Step Commands Cognitive Comments Cognitive Assessment Comments Pt alert and oriented but distracted by high pain level this session. Pt states he is forgetful. OT- Vision and Hearing OT- Hearing Assessment OT- Hearing Assessment WFL OT- Vision Assessment Visual Acuity WFL Vision Assessment Comments Pt denies any recent changes. M7 OT- IP Mobility and Balance Start: 09/19/18 07:27 Freq: Status: Active Protocol: Document 09/18/18 14:55 PJM (Rec: 09/19/18 07:48 [facility] [id number]) OT- Bed Mobility Assessment Rolling Type of Rolling Roll to Left Level of Assistance Standby Assistance 1 Person Assistance Supine to Sit Supine to Sit Assist Contact Guard Assistance 1 Person Assistance Scooting Scooting to Edge of Bed Standby Assistance OT-Transfer Assessment Sit to and From Stand Sit to and from Stand Minimal Assistance 2 Person Assistance Use of Upper Extremities Transfers Transfer Ability Minimal Assistance 2 Person Assistance Technique Transfer Destination Chair Transfer Technique Stand Step Pivot Devices Transfer Assistive Devices Gait Belt Front Wheeled Walker Comments Mobility Comments 2 person assist for safety due to RLE weakness and potential for buckling. Provided mod+ cues to encourage pt to contract R quads during transfer. OT- Gait Assessment Gait Gait Assistance Required: Minimum Assistance 2 Person Assist Assistive Devices Assistive Device Gait Belt Front Wheeled Walker Comments Gait Ability Comments 2 person assist with chair follow this session due to R knee buckling at times. See P.T. note for further details. OT- Balance Assessment Sitting Balance and Reactions Static Sitting Balance Ability Good Standing Balance and Reactions Static Standing Balance Ability Fair M8 OT- IP Objective Assessments Start: 09/19/18 07:27 Freq: Status: Active Protocol: Document 09/18/18 14:55 PJM (Rec: 09/19/18 07:48 PJM [id number]) OT Gross Range of Motion Upper Extremity Range of Motion Assessment Within Functional Limits OT Strength Upper Extremity Strength Assessment Within Functional Limits OT- Coordination Assessment Comments Coordination Comments BUE WNL OT-Muscle Tone Assessment Muscle Tone WNL Yes OT Sensation Assessment Comments Summary Comments Pt denies deficits in BUE's Edema Edema Absent M9 OT- IP Assessment and Plan Start: 09/19/18 07:27 Freq: Status: Active Protocol: Document 09/18/18 14:55 PJM (Rec: 09/19/18 07:48 PJM [id number]) OT Summary Assessment and Plan Potential Rehabilitation Potential Good Analytic Complexity at Evaluation Low Summary OT Impairments Pain Strength Balance Functional Mobility Grooming Dressing Toileting Bathing Toilet Transfers Shower Transfers Assessment Summary Low complexity OT assessment completed with emphasis on self care skills within lumbar spine precautions. Began education re: body mechanics and adapted ADL skills, but pt distracted by high pain level today and still has jones in place. Partial cotx with P.T. for gait as pt currently needs 2 person assist for safety due to RLE weakness and knee buckling. Pt currently has performance deficits in standing grooming, lower body dressing, bathing and toileting and all functional mobility/transfers. Pt will benefit from OT services here to address the goals below. Pt will need to make progress with functional mobility/gait in order to return home. Attentive can provide 24 hr assist at d/c. Goals Grooming Goal Standby Assistance Dressing Goal Standby Assistance Long Handled [place] [employer] Compliance Manager Sock Aid Toileting Goal Independent Bathing Goal Standby Assistance Toilet Transfer Goal Standby Assistance Raised Toilet Seat With Rails Shower Transfer Goal Contact Guard Assistance Walk-in Shower Patient/Caregiver Education Goal Demonstrate Post-Op Precautions Demonstrate Energy Conservation and Pacing Caregiver Independent Assisting Patient OT-Other Goals Grooming to be done standing at sink with no loss of balance or RLE buckling. Frequency of Treatment Frequency Of Treatment Once a Day Treatment Plan OT Treatment Plan ADL Training Functional Mobility Patient/Family Education Discharge Planning Discharge Recommendations OT Discharge Recommendations Home with / Assist Other Discharge Recommendations vs SNF pending progress with gait and 's ability to safely ambulate with pt
[2018-09-18 15:35] VITALS: BP 117/70; PULSE 79; RESP 18; TEMP 37.1; O2SAT 94
[2018-09-18] MEDS: SENNOSIDES 8.6 MG TABLET 17.2 MG PO (20:29)
[2018-09-18] MEDS: ATORVASTATIN 20 MG TABLET 80 MG PO (20:29)
[2018-09-18 20:40] VITALS: BP 121/62; PULSE 67; RESP 17; TEMP 36.9; O2SAT 96
[2018-09-19] MEDS: HYDROCODONE/ACET 5/325 TABLET 1 TAB PO ×3 (01:51→19:24)
[2018-09-19 01:55] VITALS: BP 129/68; PULSE 70; RESP 17; TEMP 36.6; O2SAT 95
--- NOTE | 2018-09-19 02:02 | PC.NURSE ---
Addendum entered by Geri Morales R.N. 09/19/18 05:19: Catheter removed at patient request; tolerated well. Instructed in sx/prevention of UTI; verbalizes understanding. Original Note: Patient is alert and oriented but states he can be forgetul. Breath sounds CTA with RA sat of 95%. HRR. Denies nausea. BT present and is passing flatus. Refused to have catheter removed yesterday but states he will be agreeable to having it d'cd in a.m. Currently with indwelling catheter which is patent. Dressing to back is CDI. Rates pain severity as 3/10; medicated with Vicodin and assisted to reposition onto left side. CMS intact bilaterally. Refusing SCD's; reminded to ankle wave when awake. CIWA is 0. Fall risk score is moderate and bed alarm is activated.
[2018-09-19 05:30] VITALS: BP 119/63; PULSE 67; RESP 18; TEMP 36.7; O2SAT 96
[2018-09-19] MEDS: HYDROCODONE/ACET 5/325 TABLET 2 TAB PO ×2 (07:53→12:35)
--- NOTE | 2018-09-19 08:03 | PM.PNPO.1 ---
Subjective Date Patient Seen: 09/19/18 Time Patient Seen: 08:03 Interval history: Right lower back pain has flared up after he tried to readjust the pillow under his leg. Right leg is feeling stronger. Still requiring assist for getting out of bed and ambulating. Exam Vital Signs (past 8 hours): - 09/19/18 01:55 09/19/18 05:30 Temperature 97.9 F 98.0 F Pulse Rate 70 67 Respiratory Rate 17 18 Blood Pressure 129/68 119/63 Pulse Oximetry 95 96 Oxygen Delivery Method Room Air Oxygen Flow Rate 0 Const Orientation: alert and oriented x3 Back/Spine/Pelvis Other: CDI. 5/5 motor both lower extremities except for 5-/5 right quad Objective Labs Result Diagrams: 09/18/18 05:58 09/18/18 05:58 Assessment & Plan Post-op Postoperative Procedures Operation Date: 09/17/18 07:45 Actual Procedures Side Surgeon p L3-4,L4-5 Laminectomy, L4-5 Instru. fusion w/bone graft Inderjit Allison MD He is stable after his laminectomy and fusion. His right quad strength is starting to improve. Continue to mobilize. I anticipate discharge home tomorrow. Quality VTE Deep Vein Thrombosis/Pulmonary Embolism Present on Admission: No
[2018-09-19 08:38] VITALS: BP 145/79; PULSE 75; RESP 16; TEMP 37; O2SAT 96
[2018-09-19] MEDS: PANTOPRAZOLE 40 MG TABLET PO (09:18)
[2018-09-19] MEDS: ASPIRIN EC 81 MG TABLET PO (09:18)
[2018-09-19] MEDS: DOCUSATE 100 MG CAPSULE PO ×2 (09:18→21:08)
[2018-09-19] MEDS: GABAPENTIN 600 MG TABLET PO ×2 (09:18→21:09)
[2018-09-19] MEDS: LISINOPRIL 10 MG TABLET PO (09:19)
[2018-09-19] MEDS: SODIUM CHLORIDE 0.9% FLUSH 10 ML IV ×2 (09:19→23:01)
[2018-09-19] MEDS: lamoTRIgine 100 MG TABLET 150 MG PO ×2 (09:19→21:11)
--- NOTE | 2018-09-19 09:34 | PT.IPTN ---
Current Diagnoses Spondylolisthesis, lumbar region (09/17/18) Spinal stenosis, lumbar region with neurogenic claudication (09/17/18) Surgery Performed Operation Date: 09/17/18 07:45 Actual Procedures p L3-4,L4-5 Laminectomy, L4-5 Instru. fusion w/bone graft - Inderjit Allison MD Physical Therapy Treatment Note M2 PT-IP Current Condition Start: 09/17/18 16:50 Freq: NEEDED Status: Active Protocol: Document 09/17/18 16:50 [facility] (Rec: 09/17/18 17:08 [facility] [id number]) Physical Therapy Current Condition Current Condition Evaluation Date 09/17/18 Treatment Diagnosis L4-5 TLIF Onset Date 09/17/18 Precautions Lumbar Precautions Log Roll No Twisting Limit Bending Lifting Restriction of 10 lbs Gait Belt above Incisional Area Weight Bearing Status Weight Bearing Status Weight Bear as Tolerated M3 PT-IP Subjective Start: 09/17/18 16:50 Freq: NEEDED Status: Active Protocol: Document 09/19/18 09:34 AB (Rec: 09/19/18 10:37 AB [id number]) Subjective Physical Therapy Visit Type Type Treatment Note Visit Start Time 09:34 Visit Stop Time 10:22 Total Visit Minutes 48 Number of MATERIAL CUTTER Visits 0 Physical Therapy Visit Comments Patient Comments pt agreeable to do PT Therapy Pain Assessment Pain When Pain Assessed At Rest Pain Present Pain Present Pain Reported Location Back Intensity 3 Scale Used Numeric (1 - 10) Pain Management Techniques Apply Cold Timing of Activity with Medications M4 PT-IP Mobility and Gait Start: 09/17/18 16:50 Freq: NEEDED Status: Active Protocol: Document 09/19/18 09:34 AB (Rec: 09/19/18 10:37 AB [id number]) PT-Bed Mobility Assessment Rolling Type of Rolling Log Rolling Level of Assist Standby Assistance Supine to Sit Supine to Sit Standby Assistance Sit to Supine Sit to Supine Standby Assistance Scooting Scooting to Edge of Bed Standby Assistance PT-Transfer Assessment Sit to and From Stand Sit to and from Stand Contact Guard Assistance Minimal Assistance 1 Person Assistance Equipment Transfer Assistive Device Gait Belt Front Wheeled Walker Orthotic/Prosthetic Devices or Brace: No Transfers Transfer Destination Chair Toilet Transfer Technique Stand Step Pivot Transfer Ability Level of Assist Contact Guard Assistance Comments Mobility Comments caregiver training conducted. educated spouse on how to use safety belt and how to assist pt. Bed mobility training: pt completed with SBA and occasional cues Transfer training: pt completed sit <>stand x 5 reps x 2 sets with cues. pt tends to reach for FWW too soon with B knees still half way bent requiring min A for steadiness. spouse was able to assist pt with transfer. bed<>chair pt requested to use the toilet at end of tx session. spouse assisted pt with ambulatiion to the toilet using FWW. Spouse stated that she is nervous and continues to require cues on how to assist pt. informed nurse that pt is using the toilet. Gait Assessment Gait Gait Assistance Required: Contact Guard Assist Moderate Assistance Distance (Feet) 100 Able to Maintain Weight Bearing Status Yes During Gait Assistive Devices Assistive Device Gait Belt Front Wheeled Walker Orthotic/Prosthetic Devices or Brace: No Gait Deviations General Gait Pattern Antalgic Decreased Stride Length Decreased Feet Clearance Factors Limiting Gait Function Factors Limiting Gait Function Decreased Activity Tolerance Decreased Strength Difficulty Following Directions Limited Range of Motion Pain Comments Gait Comments pt ambulated in hallway using FWW 100 ft CGA to mod A with ( +) R knee buckling requiring mod A for steadiness. pt gets easily distracted and requires constant cues for R quads activation. Stair Climbing Assessment Evaluation Level of Assist On Stairs Minimal Assistance Moderate Assistance 1 Person Assistance Devices Stair Climbing Assistive Devices Front Wheel Walker Technique/Endurance Stair Climbing Direction Ascend and Descend Number of Steps Climbed 1 Query Text: Stair Climbing Set # Repetitions (reps) 1 Comments Stair Climbing Comments pt completed up/down step stool using FWW for support requiring min to mod A and max cues. M5 PT-IP Objective Assessments Start: 09/17/18 16:50 Freq: NEEDED Status: Active Protocol: Document 09/17/18 16:50 [facility] (Rec: 09/17/18 17:08 [facility] [id number]) Orientation Orientation/Cognition Level of Alertness Alert Strength Lower Extremity Strength Assessment Bilaterally Impaired M6 PT-IP Treatment Start: 09/17/18 16:50 Freq: NEEDED Status: Active Protocol: Document 09/19/18 09:34 AB (Rec: 09/19/18 10:37 AB [id number]) Physical Therapy Treatment Exercises Exercises Quad Sets Education Education Provided Precautions Weight Bearing Status Safety M7 PT-IP Assessment and Plan Start: 09/17/18 16:50 Freq: NEEDED Status: Active Protocol: Document 09/19/18 09:34 AB (Rec: 09/19/18 10:37 AB [id number]) PT Summary Assessment and Plan Potential Rehabilitation Potential Good Summary Impairments Pain ROM Strength Balance Coordination Sensation Tone Cognition Bed Mobility Transfers Gait Activity Tolerance Progress Towards Goals Slow Progress due to Activity Tolerance Assessment Summary caregiver training conducted and requires more training. pt continues to have R knee buckling with activity and requires max cues. will continue to assess. Goals Bed Mobility Goal Standby Assistance Transfer Goal Standby Assistance Front Wheeled Walker Gait Goal Standby Assistance Front Wheel Walker Gait Distance 125 Other Goals up/down 1 step without rail and 15 steps with rail SBA Days to Meet Goals 5 Frequency of Treatment Frequency Of Treatment Twice a Day Treatment Plan Physical Therapy Treatment Plan Bed Mobility Training Transfer Training Gait Training Therapeutic Exercise Balance Retraining Post Op Education Discharge Planning Hot or Cold Pack Neuromuscular Re-ed Manual Therapy Other Recommendations and Next Treatment bed mobility, ambulation Focus Recommendations To Nursing Amount of Assist Needed 2 Person Assist Discharge Recommendations PT Discharge Recommendations Home with 24/7 Assist Home Health SNF Rehab Other Discharge Recommendations depending on progress: SNF vs home with 24/7 and homehealth PT
[2018-09-19] MEDS: hydrOXYzine pamoate 25 MG CAPSULE PO ×2 (10:22→15:23)
[2018-09-19 12:23] VITALS: BP 142/86; PULSE 75; RESP 16; TEMP 36.6; O2SAT 95
--- NOTE | 2018-09-19 12:25 | CM.DPC ---
DCP/continued: Reviewed chart. Received verbal referral from therapy and Ortho PA that patient may need SNF when medically stable. D/C anticipated for tomorrow 09-20-18. Met with patient and spouse re: plan. Patient in agreement to short SNF stay. SNF choice list provided. Spouse reports that she would like to do some research prior to picking facility. However, patient and spouse gave SAWMILLING OPERATOR permission to give referral to [facility]. Provided [facility] with verbal referral and they will review for admit. P: Anticipate SNF when medically stable. First SNF choice has not been determined however, patient provided CM team with permission to have [facility] evaluate. SARAH Mercado
--- NOTE | 2018-09-19 12:56 | CM.DPC ---
Addendum entered by Silvia Devries LPN 09/19/18 13:41: Red/[facility] has called. Requests a face sheet as well as physician notes. These are faxed now to his requested fax: [phone]. Original Note: DCP/continued: Received update from spouse. As of right now current first SNF choice is [facility] [place]. Spouse requesting that clinical be faxed to admit at [facility] [place]. INTERNATIONAL STUDENT ADVISOR faxed clinical to attn: admit at [facility] [place]. P: Pending. [facility] [place] is spouse's first choice although she continues to tour/research. SARAH Mercado
--- NOTE | 2018-09-19 13:10 | PT.IPTN ---
Current Diagnoses Spondylolisthesis, lumbar region (09/17/18) Spinal stenosis, lumbar region with neurogenic claudication (09/17/18) Surgery Performed Operation Date: 09/17/18 07:45 Actual Procedures p L3-4,L4-5 Laminectomy, L4-5 Instru. fusion w/bone graft - Inderjit Allison MD Physical Therapy Treatment Note M2 PT-IP Current Condition Start: 09/17/18 16:50 Freq: NEEDED Status: Active Protocol: Document 09/17/18 16:50 [facility] (Rec: 09/17/18 17:08 [facility] [id number]) Physical Therapy Current Condition Current Condition Evaluation Date 09/17/18 Treatment Diagnosis L4-5 TLIF Onset Date 09/17/18 Precautions Lumbar Precautions Log Roll No Twisting Limit Bending Lifting Restriction of 10 lbs Gait Belt above Incisional Area Weight Bearing Status Weight Bearing Status Weight Bear as Tolerated M3 PT-IP Subjective Start: 09/17/18 16:50 Freq: NEEDED Status: Active Protocol: Document 09/19/18 13:10 AB (Rec: 09/19/18 14:12 AB [id number]) Subjective Physical Therapy Visit Type Type Treatment Note Visit Start Time 13:10 Visit Stop Time 13:39 Total Visit Minutes 29 Number of RESEARCH ANIMAL FACILITY SUPERVISOR Visits 0 Physical Therapy Visit Comments Patient Comments pt agreeable to do PT Therapy Pain Assessment Pain When Pain Assessed At Rest Pain Present Pain Present Pain Reported Location Back Intensity 3 Scale Used Numeric (1 - 10) Pain Management Techniques Re-positioning Timing of Activity with Medications M4 PT-IP Mobility and Gait Start: 09/17/18 16:50 Freq: NEEDED Status: Active Protocol: Document 09/19/18 13:10 AB (Rec: 09/19/18 14:12 AB [id number]) PT-Bed Mobility Assessment Rolling Type of Rolling Log Rolling Level of Assist Standby Assistance Supine to Sit Supine to Sit Standby Assistance Sit to Supine Sit to Supine Standby Assistance Scooting Scooting to Edge of Bed Standby Assistance Scooting Up and Down in Bed Standby Assistance PT-Transfer Assessment Sit to and From Stand Sit to and from Stand Contact Guard Assistance Minimal Assistance Equipment Transfer Assistive Device Gait Belt Front Wheeled Walker Orthotic/Prosthetic Devices or Brace: No Transfers Transfer Destination Chair Transfer Technique Stand Step Pivot Transfer Ability Level of Assist Standby Assistance Use of Upper Extremities Comments Mobility Comments caregiver training conducted. spouse assisted pt with transfer bed to chair using FWW. pt completed sit <>stand x 5 reps requiring min A and cues for directions and safety. Gait Assessment Gait Gait Assistance Required: Contact Guard Assist Moderate Assistance Distance (Feet) 100 Able to Maintain Weight Bearing Status Yes During Gait Assistive Devices Assistive Device Gait Belt Front Wheeled Walker Orthotic/Prosthetic Devices or Brace: No Gait Deviations General Gait Pattern Decreased Stride Length Decreased Feet Clearance Factors Limiting Gait Function Factors Limiting Gait Function Decreased Activity Tolerance Decreased Strength Limited Range of Motion Pain Poor Balance Poor Safety Awareness Comments Gait Comments pt ambulated ~ 100 ft using FWW CGA to min A and max cues with (+) R knee buckling x 2 requiring mod A and cues. pt ambulated more in room using FWW ~ 40 ft CGA to min A and max cues for safety. M5 PT-IP Objective Assessments Start: 09/17/18 16:50 Freq: NEEDED Status: Active Protocol: Document 09/17/18 16:50 [facility] (Rec: 09/17/18 17:08 [facility] [id number]) Orientation Orientation/Cognition Level of Alertness Alert Strength Lower Extremity Strength Assessment Bilaterally Impaired M6 PT-IP Treatment Start: 09/17/18 16:50 Freq: NEEDED Status: Active Protocol: Document 09/19/18 13:10 AB (Rec: 09/19/18 14:12 AB [id number]) Physical Therapy Treatment Exercises Exercises Quad Sets Education Education Provided Precautions Weight Bearing Status Safety Other Treatments Other Treatment Performed caregiver training conducted with pt and spouse assisting for bed mobility, transfers and ambulation. M7 PT-IP Assessment and Plan Start: 09/17/18 16:50 Freq: NEEDED Status: Active Protocol: Document 09/19/18 13:10 AB (Rec: 09/19/18 14:12 AB [id number]) PT Summary Assessment and Plan Potential Rehabilitation Potential Fair Summary Impairments Pain ROM Strength Balance Coordination Sensation Tone Cognition Bed Mobility Transfers Gait Activity Tolerance Progress Towards Goals Slow Progress due to Activity Tolerance Assessment Summary pt requiring CGA to mod A with ambulation and with (+) R knee buckling affecting level of assistance and safety. pt will benefit from SNF rehab to improve strength and mobility . Goals Bed Mobility Goal Standby Assistance Transfer Goal Standby Assistance Front Wheeled Walker Gait Goal Standby Assistance Front Wheel Walker Gait Distance 125 Other Goals up/down 1 step without rail and 15 steps with rail SBA Days to Meet Goals 5 Frequency of Treatment Frequency Of Treatment Twice a Day Treatment Plan Physical Therapy Treatment Plan Bed Mobility Training Transfer Training Gait Training Therapeutic Exercise Balance Retraining Post Op Education Discharge Planning Hot or Cold Pack Neuromuscular Re-ed Manual Therapy Other Recommendations and Next Treatment bed mobility, ambulation Focus Recommendations To Nursing Amount of Assist Needed 2 Person Assist Discharge Recommendations PT Discharge Recommendations Home with 24/7 Assist Home Health SNF Rehab Other Discharge Recommendations depending on progress: SNF vs home with 24/7 and homehealth PT
--- NOTE | 2018-09-19 14:16 | CM.DPC ---
DCP: continued: case received and discussed in Team Rounds. Dr. Morgan, with assist from RN coordinator Kraen worked on a transfer for pt to a higher level of care that could provide pulmonology and ID specialists. Pt going this afternoon to [facility].
--- NOTE | 2018-09-19 14:32 | OT.IP.TRT ---
Current Diagnoses Spondylolisthesis, lumbar region (09/17/18) Spinal stenosis, lumbar region with neurogenic claudication (09/17/18) Surgery Performed Operation Date: 09/17/18 07:45 Actual Procedures p L3-4,L4-5 Laminectomy, L4-5 Instru. fusion w/bone graft - Inderjit Allison MD Occupational Therapy Treatment Note M2 OT-IP Current Condition Start: 09/19/18 07:27 Freq: Status: Active Protocol: Document 09/18/18 14:55 PJM (Rec: 09/19/18 07:48 P[facility] [id number]) Occupational Therapy Current Condition Current Condition Evaluation Date 09/18/18 Treatment Diagnosis decreased self care, mobility s/p L3-4, L4-5 lami with L4-5 fusion Post Operative Precautions Lumbar Precautions Log Roll No Twisting Limit Bending Lifting Restriction of 10 lbs Gait Belt above Incisional Area M3 OT- IP Subjective and Pain Start: 09/19/18 07:27 Freq: Status: Active Protocol: Document 09/19/18 14:32 PJM (Rec: 09/19/18 14:48 PJM [id number]) OT- Subjective Occupational Therapy Visit Type Type Treatment Note Visit Start Time 13:50 Visit Stop Time 14:32 Total Visit Minutes 42 Notes Pt's here for education. Occupational Therapy Visit Comments Patient Comments I think I am doing better today. The pain is better. Patient/Caregiver Goals to go home OT Pain Assessment Pain When Pain Assessed After Treatment Pain Present Pain Present Pain Reported Location Back Intensity 5 Scale Used Numeric (1 - 10) Description Aching Acute M4 OT- IP ADL's Start: 09/19/18 07:27 Freq: Status: Active Protocol: Document 09/19/18 14:32 PJM (Rec: 09/19/18 14:48 PJM [id number]) OT ADL-Dressing General Eval Lower Body Dressing Ability Minimal Assistance Assistive Devices Dressing Assistive Devices Crew Leader/Control Room Operator Sock Aid Comments OT Dressing Comments Provided education to pt/ re: lower body dressing with custom feed mill operator helper and sock aid. Pt needs mod+ verbal cues to problem solve use of new equipment after demo. OT ADL-Toileting General Evaluation Toileting Ability Contact Guard Assistance Areas Needing Assistance Perform Perineal Hygiene Devices Toileting Assistive Devices Grab Bars Raised Toilet Seat Comments OT Toileting Comments Provided education re: body mechanics for standing [place] care. Pt needs close CGa for safety with FWW due to RLE instability. OT ADL-Bathing Comments OT Bathing Comments pt would like to shower M6 OT- IP Functional Cognition Start: 09/19/18 07:27 Freq: Status: Active Protocol: Document 09/19/18 14:32 PJM (Rec: 09/19/18 14:48 PJ [id number]) Cognitive Factors Limiting Selfcare Function Cognitive Ability Level of Alertness Alert Patient Orientation Name Place Situation Attention Span Ability Capable of Focused Attention Ability to Follow Commands Able to Follow One Step Commands Memory Description Immediate Impaired Short Term Impaired Safety Awareness Decreased Recall of Precautions Decreased Ability to Apply Precautions Underestimates Need for Assistance Problem Solving Ability Unable to Identify Errors Needs Assist to Identify Solutions Executive Function Ability Unable to Filter Distractions Unable to Remember Details Cognitive Comments Cognitive Assessment Comments Pt presents with short term memory deficits regarding lumbar precautions and instructions for adapted ADL techniques with significantly decreased insight re: RLE instability and potential safety issues (high fall risk) related to this. He underestimates his need for assistance and needs mod to max verbal cues to problem solve safer strategies for transfers and ADL completion. M7 OT- IP Mobility and Balance Start: 09/19/18 07:27 Freq: Status: Active Protocol: Document 09/19/18 14:32 PJM (Rec: 09/19/18 14:48 [facility] [id number]) OT- Bed Mobility Assessment Rolling Type of Rolling Roll to Right Level of Assistance Standby Assistance Sit to Supine Sit to Supine Assist Standby Assistance Scooting Scooting to Edge of Bed Standby Assistance Scooting Up and Down in Bed Minimal Assistance 2 Person Assistance OT-Transfer Assessment Sit to and From Stand Sit to and from Stand Contact Guard Assistance 1 Person Assistance Transfers Transfer Ability Contact Guard Assistance 1 Person Assistance Technique Transfer Destination Bed Chair Toilet Transfer Technique Stand Step Pivot Devices Transfer Assistive Devices Gait Belt Front Wheeled Walker Comments Mobility Comments Pt needs close CGA and mod verbal cues for bed mobility, transfers for RLE awareness. No buckling noted this session , but tends to stand with R knee flexed. OT- Gait Assessment Gait Gait Assistance Required: Contact Guard Assist 1 Person Assist Distance (Feet) 20 Assistive Devices Assistive Device Gait Belt Front Wheeled Walker Comments Gait Ability Comments 2nd person CGA for safety due to instability in RLE OT- Balance Assessment Sitting Balance and Reactions Static Sitting Balance Ability Good Dynamic Sitting Balance Ability Good Standing Balance and Reactions Static Standing Balance Ability Fair Dynamic Standing Balance Ability Fair Comments Other Balance Tests/Deviations/Treatment duirng lower body clothing : management M9 OT- IP Assessment and Plan Start: 09/19/18 07:27 Freq: Status: Active Protocol: Document 09/19/18 14:32 PJM (Rec: 09/19/18 14:48 PJM [id number]) OT Summary Assessment and Plan Potential Rehabilitation Potential Good Summary OT Impairments Pain Strength Balance Functional Cognition Functional Mobility Grooming Dressing Toileting Bathing Toilet Transfers Shower Transfers Progress Towards Goals Progressing Toward Goals Assessment Summary Pt demonstrating increasing independence with bed mobility , transfers and self care today with increased balance and fewer episodes of RLE buckling noted. However, he presents with short term memory deficits regarding lumbar precautions and instructions for adapted ADL techniques with significantly decreased insight re: RLE instability and potential safety issues (high fall risk) related to this. He underestimates his need for assistance and needs mod to max verbal cues to problem solve safer strategies for transfers and ADL completion. His remains anxious re: her ability to assist pt safely at home. Pt may need SNF at depending progress here and pt's/ ability to work together as team for safe transfers/ambulation. If pt is cleared by P.T. to go home, recommend HH OT/PT followup. Goals Grooming Goal Standby Assistance Dressing Goal Standby Assistance Long Handled [place] Crew Leader/Control Room Operator Sock Aid Toileting Goal Independent Bathing Goal Standby Assistance Toilet Transfer Goal Standby Assistance Raised Toilet Seat With Rails Shower Transfer Goal Contact Guard Assistance Walk-in Shower Patient/Caregiver Education Goal Demonstrate Post-Op Precautions Demonstrate Energy Conservation and Pacing Caregiver Independent Assisting Patient OT-Other Goals Grooming to be done standing at sink with no loss of balance or RLE buckling. Frequency of Treatment Frequency Of Treatment Once a Day Treatment Plan OT Treatment Plan ADL Training Functional Mobility Patient/Family Education Discharge Planning Discharge Recommendations OT Discharge Recommendations Home with 26/02 Assist Home Health Other Discharge Recommendations vs SNF pending progress with gait and 's ability to safely ambulate and transfer pt
[2018-09-19 15:25] VITALS: BP 121/73; PULSE 70; RESP 17; TEMP 36.9; O2SAT 97
[2018-09-19 19:30] VITALS: BP 130/56; PULSE 75; RESP 18; TEMP 36.7; O2SAT 96
--- NOTE | 2018-09-19 19:32 | PC.NURSE ---
Addendum entered by Niurka Christopher R.N. 09/19/18 22:39: Relatively uneventful evening Condition remains relatively unchanged. CiWa = 0. Call light w/in reach. Continue w/plan of care. Original Note: Pt sitting in chair. Med at 1645 for discomfort w/minimal relief. given second dose at 1920. Lungs clear, SpO2 96% RA. Dsg to surgical back CDI. CiWa = 0 at this time. Call light w/in reach.
[2018-09-19] MEDS: ATORVASTATIN 20 MG TABLET 80 MG PO (21:07)
[2018-09-19] MEDS: SENNOSIDES 8.6 MG TABLET 17.2 MG PO (21:12)
[2018-09-19] MEDS: MAGNESIUM HYDROXIDE 30 ML UDC PO (21:14)
[2018-09-20] VITALS (7 sets, daily range): BP systolic 119–139; BP diastolic 58–79; PULSE 61–69; RESP 17–20; TEMP 36.5–36.8; O2SAT 94–98
[2018-09-20] MEDS: HYDROCODONE/ACET 5/325 TABLET 1 TAB PO ×2 (01:20→11:31)
--- NOTE | 2018-09-20 02:44 | PC.NURSE ---
Patient taking norco for pain, 01/13. Spinal/lumbar dressing CDI. SBA using FWW to BR. CIWA 0,alert,oriented,pleasant.
[2018-09-20] MEDS: HYDROCODONE/ACET 5/325 TABLET 2 TAB PO ×3 (08:10→21:39)
[2018-09-20] MEDS: MAGNESIUM HYDROXIDE 30 ML UDC PO (09:02)
[2018-09-20] MEDS: lamoTRIgine 100 MG TABLET 150 MG PO ×2 (09:03→21:43)
[2018-09-20] MEDS: LISINOPRIL 10 MG TABLET PO (09:03)
[2018-09-20] MEDS: PANTOPRAZOLE 40 MG TABLET PO (09:03)
[2018-09-20] MEDS: DOCUSATE 100 MG CAPSULE PO ×2 (09:05→21:43)
[2018-09-20] MEDS: ASPIRIN EC 81 MG TABLET PO (09:12)
[2018-09-20] MEDS: GABAPENTIN 600 MG TABLET PO ×2 (09:12→21:44)
[2018-09-20] MEDS: SODIUM CHLORIDE 0.9% FLUSH 10 ML IV (09:13)
--- NOTE | 2018-09-20 10:18 | CM.DPC ---
Addendum entered by Silvia Devries LPN 09/20/18 10:24: Just spoke with pete Vang. He just had discussion with pt and his re d/c issues. He reports that he is keeping pt another day to continue therapy with expectation that pt will be ok for home tomorrow. Pt himself does desire home setting. As per discussion yesterday with pt's , will keep the referral in to [facility] in case of need but will update [facility] now that d/c will not be today. Original Note: DCP: continued: spoke several times yesterday afternoon with pt's re her snf search. At 1600 she stated that she now did want [facility] for her and was aware that d/c was probable today. Did call [facility] and updated [place]/admissions phone re same. She stated that they could accept up to 3 patients today and she reinstated pt on her pending list. ( earlier had chosen [facility] [place] [facility]/Red is updated). Discussed case in Team Rounds. Pete Vang is unsure if pt will go today.
--- NOTE | 2018-09-20 10:24 | PT.IPTN ---
Current Diagnoses Spondylolisthesis, lumbar region (09/17/18) Spinal stenosis, lumbar region with neurogenic claudication (09/17/18) Surgery Performed Operation Date: 09/17/18 07:45 Actual Procedures p L3-4,L4-5 Laminectomy, L4-5 Instru. fusion w/bone graft - Inderjit Allison MD Physical Therapy Treatment Note M2 PT-IP Current Condition Start: 09/17/18 16:50 Freq: NEEDED Status: Active Protocol: Document 09/17/18 16:50 [facility] (Rec: 09/17/18 17:08 [facility] [id number]) Physical Therapy Current Condition Current Condition Evaluation Date 09/17/18 Treatment Diagnosis L4-5 TLIF Onset Date 09/17/18 Precautions Lumbar Precautions Log Roll No Twisting Limit Bending Lifting Restriction of 10 lbs Gait Belt above Incisional Area Weight Bearing Status Weight Bearing Status Weight Bear as Tolerated M3 PT-IP Subjective Start: 09/17/18 16:50 Freq: NEEDED Status: Active Protocol: Document 09/20/18 10:24 AB (Rec: 09/20/18 11:49 AB [email or web address]) Subjective Physical Therapy Visit Type Type Treatment Note Visit Start Time 10:24 Visit Stop Time 10:54 Total Visit Minutes 30 Number of BUSINESS SERVICES SALES REPRESENTATIVE Visits 0 Physical Therapy Visit Comments Patient Comments pt agreeable to do PT Therapy Pain Assessment Pain When Pain Assessed During Mobility Pain Present Pain Present Pain Reported Location Back Intensity 3 Scale Used Numeric (1 - 10) Pain Management Techniques Re-positioning Timing of Activity with Medications M4 PT-IP Mobility and Gait Start: 09/17/18 16:50 Freq: NEEDED Status: Active Protocol: Document 09/20/18 10:24 AB (Rec: 09/20/18 11:49 AB [email or web address]) PT-Bed Mobility Assessment Supine to Sit Supine to Sit Standby Assistance Sit to Supine Sit to Supine Standby Assistance Scooting Scooting to Edge of Bed Standby Assistance PT-Transfer Assessment Sit to and From Stand Sit to and from Stand Contact Guard Assistance Equipment Transfer Assistive Device Gait Belt Front Wheeled Walker Comments Mobility Comments caregiver training conducted. spouse assisted pt with mobility and was able to assist with occasional cues on how to instruct pt. Gait Assessment Gait Gait Assistance Required: Contact Guard Assist Distance (Feet) 200 Able to Maintain Weight Bearing Status Yes During Gait Assistive Devices Assistive Device Gait Belt Front Wheeled Walker Orthotic/Prosthetic Devices or Brace: No Gait Deviations General Gait Pattern Antalgic Decreased Stride Length Decreased Feet Clearance Factors Limiting Gait Function Factors Limiting Gait Function Decreased Activity Tolerance Decreased Strength Difficulty Following Directions Limited Range of Motion Pain Poor Balance Poor Safety Awareness Comments Gait Comments spouse was able to assist pt with ambulation using FWW ~ 200 ft CGA and cues. Stair Climbing Assessment Evaluation Level of Assist On Stairs Minimal Assistance Devices Stair Climbing Assistive Devices Front Wheel Walker Technique/Endurance Stair Climbing Direction Ascend and Descend Stair Climbing Technique Step to Step Number of Steps Climbed 2 Query Text: Stair Climbing Set # Repetitions (reps) 4 Comments Stair Climbing Comments pt completed up/down platform step with PT assisting initially and pt completed with CGA to min A and max cues . instructed spouse on how to assist pt and pt completed up /down step again 2 more sets with spouse assisted and completed safely. continues to require max cues for R quad activation M5 PT-IP Objective Assessments Start: 09/17/18 16:50 Freq: NEEDED Status: Active Protocol: Document 09/17/18 16:50 [facility] (Rec: 09/17/18 17:08 [facility] [id number]) Orientation Orientation/Cognition Level of Alertness Alert Strength Lower Extremity Strength Assessment Bilaterally Impaired M6 PT-IP Treatment Start: 09/17/18 16:50 Freq: NEEDED Status: Active Protocol: Document 09/20/18 10:24 AB (Rec: 09/20/18 11:49 AB [email or web address]) Physical Therapy Treatment Education Education Provided Safety M7 PT-IP Assessment and Plan Start: 09/17/18 16:50 Freq: NEEDED Status: Active Protocol: Document 09/20/18 10:24 AB (Rec: 09/20/18 11:49 AB [email or web address]) PT Summary Assessment and Plan Potential Rehabilitation Potential Good Summary Impairments Pain ROM Strength Balance Coordination Sensation Tone Cognition Bed Mobility Transfers Gait Activity Tolerance Progress Towards Goals Slow Progress due to Activity Tolerance Slow Progress - Other Assessment Summary caregiver training conducted today. spouse stated that she feels more comfortable with assisting pt today and will conduct another caregiver training this afternoon. pt continues to be impulsive. spouse feels like she can assist him at home and may go home when medically stable. will continue to assess for consistency with mobility and if R LE will continue to have no incidences of buckling. Goals Bed Mobility Goal Standby Assistance Transfer Goal Standby Assistance Front Wheeled Walker Gait Goal Standby Assistance Front Wheel Walker Gait Distance 125 Other Goals up/down 1 step without rail and 15 steps with rail SBA Days to Meet Goals 5 Frequency of Treatment Frequency Of Treatment Twice a Day Recommendations To Nursing Amount of Assist Needed 1 Person Assist Discharge Recommendations PT Discharge Recommendations Home with 24/7 Assist Home Health SNF Rehab Other Discharge Recommendations depending on progress: SNF vs home with 24/7 and homehealth PT
[2018-09-20] MEDS: POLYETHYLENE GLYCOL 3350 17 GM POWD.PACK PO (10:37)
--- NOTE | 2018-09-20 11:01 | P.PN_ITS ---
Subjective Date Patient Seen: 09/20/18 Time Patient Seen: 10:57 Interval history: Hospital day 4, postop day 3 following L3-4 laminectomy and L4-5 TLIF with cage and posterior screw fixation by Dr. Allison. The patient did have right quad weakness postoperatively. Had a couple of episodes of leg buckling yesterday. He feels that his leg strength is better today. His has the significant concerns about having him go home at this time because of his leg weakness. He has been approved for a bed at [facility]. He is complaining of some increased pain to his incision area. Using [place] for pain. Exam Vital Signs (past 8 hours): - 09/20/18 04:53 09/20/18 08:00 Temperature 98.1 F 97.8 F Pulse Rate 61 68 Respiratory Rate 18 17 Blood Pressure 120/58 L 137/79 Pulse Oximetry 95 98 Oxygen Delivery Method Room Air Oxygen Flow Rate 0 Narrative Exam Narrative: Alert, oriented no acute distress sitting in chair. Back. Lumbar dressing removed. Incisions appear to be healing well without signs of infection or inflammation. New dressing applied. Legs. No calf pain or swelling. Pulses and sensation lower leg symmetrical. He is able do SLR from sitting position to 90? bilateral. Good strength on ankle dorsiflexion plantar flexion. Objective Labs Result Diagrams: 09/18/18 05:58 09/18/18 05:58 Assessment & Plan Post-op Postoperative Procedures Operation Date: 09/17/18 07:45 Actual Procedures Side Surgeon p L3-4,L4-5 Laminectomy, L4-5 Instru. fusion w/bone graft Inderjit Allison MD Plan: Patient has not been seen by physical therapy this morning. It was decided that we would keep the patient in the hospital today and let him work with CARMEN Quintero to see how his ambulation and leg strength does. If he is doing noticeably better and his is comfortable having him at home that he will be discharged home tomorrow. If he is still having weakness and buckling and the is not comfortable with caring for him that he will be discharged to [facility]. Quality VTE Deep Vein Thrombosis/Pulmonary Embolism Present on Admission: No
[2018-09-20] MEDS: hydrOXYzine pamoate 25 MG CAPSULE PO ×2 (11:29→21:42)
--- NOTE | 2018-09-20 12:42 | OT.IP.TRT ---
Current Diagnoses Spondylolisthesis, lumbar region (09/17/18) Spinal stenosis, lumbar region with neurogenic claudication (09/17/18) Surgery Performed Operation Date: 09/17/18 07:45 Actual Procedures p L3-4,L4-5 Laminectomy, L4-5 Instru. fusion w/bone graft - Inderjit Allison MD Occupational Therapy Treatment Note M2 OT-IP Current Condition Start: 09/19/18 07:27 Freq: Status: Active Protocol: Document 09/18/18 14:55 [facility] (Rec: 09/19/18 07:48 [facility] [id number]) Occupational Therapy Current Condition Current Condition Evaluation Date 09/18/18 Treatment Diagnosis decreased self care, mobility s/p L3-4, L4-5 lami with L4-5 fusion Post Operative Precautions Lumbar Precautions Log Roll No Twisting Limit Bending Lifting Restriction of 10 lbs Gait Belt above Incisional Area M3 OT- IP Subjective and Pain Start: 09/19/18 07:27 Freq: Status: Active Protocol: Document 09/20/18 12:21 [facility] (Rec: 09/20/18 12:42 [facility] [email or web address]) OT- Subjective Occupational Therapy Visit Type Type Treatment Note Visit Start Time 08:25 Visit Stop Time 08:40 Total Visit Minutes 50 Notes Saw pt again 1053- 1118 for showering and saw pt in the morning for toileting. Pt's present for caregiver training. Occupational Therapy Visit Comments Patient Comments Pt and agreeable to do training as trying to decide on going home or to skilled rehab. OT Pain Assessment Pain When Pain Assessed At Rest Pain Present Pain Present Denied Pain M4 OT- IP ADL's Start: 09/19/18 07:27 Freq: Status: Active Protocol: Document 09/20/18 12:21 [facility] (Rec: 09/20/18 12:42 [facility] [email or web address]) OT ADL-Grooming General Evaluation Grooming Ability Standby Assistance Areas Needing Assistance Retrieving/Set-up of Grooming Items Comments OT Grooming Comments SBA with FWW and able to do all grooming needs. VC to bend at hips or just sip into a cup while brushing his teeth. OT ADL-Oral Care General Eval Oral Care Ability Independent OT ADL-Dressing General Eval Upper Body Dressing Ability Independent Lower Body Dressing Ability Moderate Assistance Areas Needing Assistance Pants/Shorts Socks Shoes Comments OT Dressing Comments having to assist to get clothing over his feet. Able to practice use of welder gun, but pt wanting to practice more tomorrow. Suggested pt to velcro welder gun to FWW therefore easily accessible to use at all times. OT ADL-Toileting General Evaluation Toileting Ability Standby Assistance Devices Toileting Assistive Devices Grab Bars Comments OT Toileting Comments SBA for safety pt able to sit down to the toilet and get up. OT ADL-Bathing Bathing Type Bathing Type Shower General Evaluation Bathing Ability Moderate Assistance Areas Needing Assistance Wash/Dry Back Wash/Dry Perineal Area Wash/Dry Lower Extremities Devices Bathing Equipment Long Handled Sponge or Ava Shower Chair with Arms Grab Bars Comments OT Bathing Comments Pt's able to safely assist pt for all needs for showering with good safety. Pt still needing occasional cues not to twist too much. Encouraged pt and to communicate more. Pt's tends to be a bit anxious and wants to let her know step by step what he is about to do. M5 OT- IP IADL's Start: 09/19/18 07:27 Freq: Status: Active Protocol: Document 09/18/18 14:55 [facility] (Rec: 09/19/18 07:48 [facility] [id number]) OT-Instrumental Activities of Daily Living Deficits IADL Deficits Identified Deficits Home Safety Awareness Awareness of Need for Assistance at Home Good Awareness Medication Management Medication Management Caregiver Provides Supervision Medication Management Comments pt states he can be forgetful Money Management Money Management Caregiver Provides Supervision Meal Preparation Meal Preparation Caregiver Provides Assist Maori Physiotherapist Maori Physiotherapist Caregiver Provides Assist Driving Driving Caregiver Provides Assist Driving Comments to assist until pt able M6 OT- IP Functional Cognition Start: 09/19/18 07:27 Freq: Status: Active Protocol: Document 09/20/18 12:21 [facility] (Rec: 09/20/18 12:42 [facility] [email or web address]) Cognitive Factors Limiting Selfcare Function Cognitive Ability Level of Alertness Alert Patient Orientation Name Place Situation Attention Span Ability Capable of Focused Attention Ability to Follow Commands Able to Follow Multi-Step Commands Memory Description Short Term Impaired Safety Awareness Decreased Ability to Apply Precautions Underestimates Need for Assistance Cognitive Comments Cognitive Assessment Comments Doing much better with safety and memory today. M7 OT- IP Mobility and Balance Start: 09/19/18 07:27 Freq: Status: Active Protocol: Document 09/20/18 12:21 [facility] (Rec: 09/20/18 12:42 [facility] [email or web address]) OT-Transfer Assessment Sit to and From Stand Sit to and from Stand Standby Assistance Contact Guard Assistance 1 Person Assistance Transfers Transfer Ability Standby Assistance Contact Guard Assistance 1 Person Assistance Technique Transfer Destination Bed Chair Shower Stall Toilet Devices Transfer Assistive Devices Gait Belt Front Wheeled Walker Comments Mobility Comments Pt still needing CGA over uneven terrain and threshold of shower. NO buckling noted. Pt heavily relied on pushing up from the FWW to stand. OT- Balance Assessment Sitting Balance and Reactions Static Sitting Balance Ability Normal Dynamic Sitting Balance Ability Good Standing Balance and Reactions Static Standing Balance Ability Good Dynamic Standing Balance Ability Fair M8 OT- IP Objective Assessments Start: 09/19/18 07:27 Freq: Status: Active Protocol: Document 09/18/18 14:55 [facility] (Rec: 09/19/18 07:48 [facility] [id number]) OT Gross Range of Motion Upper Extremity Range of Motion Assessment Within Functional Limits OT Strength Upper Extremity Strength Assessment Within Functional Limits OT- Coordination Assessment Comments Coordination Comments BUE WNL OT-Muscle Tone Assessment Muscle Tone WNL Yes OT Sensation Assessment Comments Summary Comments Pt denies deficits in BUE's Edema Edema Absent M9 OT- IP Assessment and Plan Start: 09/19/18 07:27 Freq: Status: Active Protocol: Document 09/20/18 12:21 [facility] (Rec: 09/20/18 12:42 [facility] [email or web address]) OT Summary Assessment and Plan Potential Rehabilitation Potential Good Summary Progress Towards Goals Progressing Toward Goals Assessment Summary Pt doing well today and able to shower and dress with pt's assistance. Both able to show good safety and understanding. Pt's feeling more confident and trying to decide whether to take pt home or have him do short skilled rehab stay. Goals Dressing Goal Standby Assistance Long Handled Shoe Horn Distiller Sock Aid Patient/Caregiver Education Goal Demonstrate Post-Op Precautions Demonstrate Energy Conservation and Pacing Caregiver Independent Assisting Patient Days to Meet Goals 2 Frequency of Treatment Frequency Of Treatment Once a Day Treatment Plan OT Treatment Plan ADL Training Functional Mobility Patient/Family Education Discharge Planning Discharge Recommendations OT Discharge Recommendations Home with Assistance SNF Rehab Other Discharge Recommendations Pending 's decision home versus skilled rehab.
--- NOTE | 2018-09-20 13:43 | PT.IPTN ---
Current Diagnoses Spondylolisthesis, lumbar region (09/17/18) Spinal stenosis, lumbar region with neurogenic claudication (09/17/18) Surgery Performed Operation Date: 09/17/18 07:45 Actual Procedures p L3-4,L4-5 Laminectomy, L4-5 Instru. fusion w/bone graft - Inderjit Allison MD Physical Therapy Treatment Note M2 PT-IP Current Condition Start: 09/17/18 16:50 Freq: NEEDED Status: Active Protocol: Document 09/17/18 16:50 [facility] (Rec: 09/17/18 17:08 [facility] [id number]) Physical Therapy Current Condition Current Condition Evaluation Date 09/17/18 Treatment Diagnosis L4-5 TLIF Onset Date 09/17/18 Precautions Lumbar Precautions Log Roll No Twisting Limit Bending Lifting Restriction of 10 lbs Gait Belt above Incisional Area Weight Bearing Status Weight Bearing Status Weight Bear as Tolerated M3 PT-IP Subjective Start: 09/17/18 16:50 Freq: NEEDED Status: Active Protocol: Document 09/20/18 14:31 [facility] (Rec: 09/20/18 14:37 AB [email or web address]) Subjective Physical Therapy Visit Type Type Treatment Note Visit Start Time 13:43 Visit Stop Time 14:00 Total Visit Minutes 17 Number of PNEUMATIC RIVETER Visits 0 Physical Therapy Visit Comments Patient Comments pt agreeable to do PT Therapy Pain Assessment Pain When Pain Assessed During Mobility Pain Present Pain Present Pain Reported Location Back Scale Used pain scale not stated Pain Management Techniques Re-positioning Timing of Activity with Medications M4 PT-IP Mobility and Gait Start: 09/17/18 16:50 Freq: NEEDED Status: Active Protocol: Document 09/20/18 14:31 [facility] (Rec: 09/20/18 14:37 AB [email or web address]) PT-Bed Mobility Assessment Supine to Sit Supine to Sit Standby Assistance Sit to Supine Sit to Supine Standby Assistance Scooting Scooting to Edge of Bed Standby Assistance PT-Transfer Assessment Sit to and From Stand Sit to and from Stand Contact Guard Assistance Equipment Transfer Assistive Device Gait Belt Front Wheeled Walker Orthotic/Prosthetic Devices or Brace: No Comments Mobility Comments caregiver training conducted. spouse assisted pt with bed mobility and transfers and was able to complete safely. Gait Assessment Gait Gait Assistance Required: Contact Guard Assist Minimum Assistance Distance (Feet) 200 Able to Maintain Weight Bearing Status Yes During Gait Assistive Devices Assistive Device Gait Belt Front Wheeled Walker Gait Deviations General Gait Pattern Antalgic Factors Limiting Gait Function Factors Limiting Gait Function Decreased Activity Tolerance Decreased Strength Difficulty Following Directions Limited Range of Motion Pain Poor Balance Poor Safety Awareness Comments Gait Comments spouse assisted pt with ambulation using FWW ~ 200 ft CGA to min A and constant cues for steadiness and to activate R quads. spouse and pt stated that they feel comfortable doing the stairs and does not want to do it again this afternoon. M5 PT-IP Objective Assessments Start: 09/17/18 16:50 Freq: NEEDED Status: Active Protocol: Document 09/17/18 16:50 [facility] (Rec: 09/17/18 17:08 [facility] [id number]) Orientation Orientation/Cognition Level of Alertness Alert Strength Lower Extremity Strength Assessment Bilaterally Impaired M6 PT-IP Treatment Start: 09/17/18 16:50 Freq: NEEDED Status: Active Protocol: Document 09/20/18 14:31 [facility] (Rec: 09/20/18 14:37 AB [email or web address]) Physical Therapy Treatment Education Education Provided Precautions Safety M7 PT-IP Assessment and Plan Start: 09/17/18 16:50 Freq: NEEDED Status: Active Protocol: Document 09/20/18 14:31 [facility] (Rec: 09/20/18 14:37 AB [email or web address]) PT Summary Assessment and Plan Potential Rehabilitation Potential Good Summary Impairments Pain ROM Strength Balance Coordination Sensation Tone Cognition Bed Mobility Transfers Gait Activity Tolerance Progress Towards Goals Progressing Toward Goals Assessment Summary caregiver training conducted again and spouse was able to assist pt safely. pt may benefit from homehealth PT. Goals Bed Mobility Goal Standby Assistance Transfer Goal Standby Assistance Front Wheeled Walker Gait Goal Standby Assistance Front Wheel Walker Gait Distance 125 Other Goals up/down 1 step without rail and 15 steps with rail SBA Days to Meet Goals 5 Frequency of Treatment Frequency Of Treatment Twice a Day Treatment Plan Physical Therapy Treatment Plan Bed Mobility Training Transfer Training Gait Training Therapeutic Exercise Balance Retraining Post Op Education Discharge Planning Hot or Cold Pack Neuromuscular Re-ed Manual Therapy Other Recommendations and Next Treatment ambulation, stair climbing, Focus caregiver training Recommendations To Nursing Amount of Assist Needed 1 Person Assist Discharge Recommendations PT Discharge Recommendations Home with 24/7 Assist Home Health SNF Rehab Other Discharge Recommendations depending on progress: SNF vs home with 24/7 and homehealth PT
[2018-09-20] MEDS: BISACODYL 10 MG SUPP PR (17:49)
[2018-09-20] MEDS: ATORVASTATIN 20 MG TABLET 80 MG PO (21:42)
[2018-09-20] MEDS: SENNOSIDES 8.6 MG TABLET 17.2 MG PO (21:42)
[2018-09-21] MEDS: hydrOXYzine pamoate 25 MG CAPSULE PO (01:18)
[2018-09-21] MEDS: HYDROCODONE/ACET 5/325 TABLET 1 TAB PO ×3 (01:19→13:16)
[2018-09-21 04:09] VITALS: BP 106/53; PULSE 61; RESP 16; TEMP 36.3; O2SAT 99
--- NOTE | 2018-09-21 08:25 | PM.DS.1 ---
History of Present Illness Date Patient Seen: 09/21/18 Time Patient Seen: 08:25 Chief complaint: [id number] Narrative: History and physical examination are contained in the chart in a previously completed note. Please refer to this note for this information. Discharge Providers Date of admission: 09/17/18 05:39 Primary care physician: Mark Ashford MD Consults: 09/17/18 13:40 Consult to Occupational Therapy Evaluate & Treat Comment: Physician Instructions: Evaluate and treat Consult to Physical Therapy Evaluate & Treat Comment: Physician Instructions: Evaluate and Treat 09/17/18 14:31 Consult to [employer] Routine Comment: Discharge provider: Brian Joseph MD Discharge Date: 09/21/18 Summary Discharge Diagnosis: 1. Lumbar spinal stenosis 2. Acute post hemorrhagic anemia Hospital Course: The patient was admitted to the hospital and taken directly to the operating room where he underwent a lumbar decompression and fusion. He made slow progress with physical therapy postoperatively and initially the plan was for him to go to a fdc facility. He eventually made enough progress to be safe for discharge home. Status at Discharge Cognitive/behavioral status at discharge: Baseline Functional status at discharge: independent ambulation Overall status at discharge: patient is progressing back to baseline Time Spent with Patient Less than 30 minutes Exam Vital Signs (past 8 hours): - 09/21/18 04:09 Temperature 97.3 F L Pulse Rate 61 Respiratory Rate 16 Blood Pressure 106/53 L Pulse Oximetry 99 Oxygen Delivery Method Room Air Oxygen Flow Rate 0 Narrative Exam Narrative: Lumbar spine wound is dressed with a clean, dry and intact dressing. Light touch and motion are intact in both lower extremities. Objective Labs Result Diagrams: 09/18/18 05:58 09/18/18 05:58 Discharge Plan Discharge Plan Patient Disposition: Home Discharge comment: f/u 1.5 wks Discharge Med Rec/Prescriptions Prescriptions: New hydrocodone-acetaminophen 5-325 mg Tablet See Rx Instructions .ROUTE .COMPLEX PRN (Reason: Pain, Moderate (4-6)) Qty: 40 RF: 0 hydroxyzine pamoate 25 mg Capsule 25 mg PO Q4HR PRN (Reason: spasms) Qty: 30 RF: 0 Continued lamotrigine 150 mg Tablet 150 mg PO BID RF: 0 atorvastatin 80 mg Tablet 80 mg PO BEDTIME RF: 0 gabapentin 600 mg Tablet 600 mg PO BID RF: 0 aspirin 81 mg Tablet,Delayed Release (Dr/Ec) 81 mg PO DAILY RF: 0 tramadol 50 mg Tablet 50 mg PO BID RF: 0 pantoprazole 40 mg Tablet,Delayed Release (Dr/Ec) 40 mg PO DAILY RF: 0 lisinopril 10 mg Tablet 10 mg PO DAILY RF: 0 fluticasone [Flonase Allergy Relief] 50 mcg/actuation [place],Suspension 1 spray INTRANASAL DAILY PRN (Reason: seasonal allergies) RF: 0 nitroglycerin 0.4 mg Tablet, Sublingual 0.4 mg SUBLINGUAL Q5-15M PRN (Reason: Chest Pain) RF: 0 Follow up/Referrals: Mark Ashford MD [Primary Care Provider] - Brian Joseph MD [Physician] - 1 Week (Follow-up with Inderjit Allison MD at my office.) Provider Discharge Instructions Diet: Diet as Tolerated and Regular Activity: limited BLT 10 lbs max Cold/Heat Therapy: You may apply ice to your back for 15 min of every hour as needed for pain relief. Skin/Wound/Dressing Care Report to your healthcare provider any signs of infection, such as:: chills, fever, night sweats, increased pain, unusual drainage and unusual redness Dressing: may change dressing and shower POD#5 Visit Report/Discharge Packet Instructions: DI for Transforaminal Lumbar Interbody Fusion Stand Alone Forms: Surgery Discharge Discharge Data Primary Care Provider: Mark Ashford Attending Provider: Inderjit Allison Admit Date/Time: 09/17/18 05:39 Quality VTE Deep Vein Thrombosis/Pulmonary Embolism Present on Admission: No
--- NOTE | 2018-09-21 08:28 | P.DS_ITS ---
History of Present Illness Date Patient Seen: 09/21/18 Time Patient Seen: 08:25 Chief complaint: [id number] Narrative: History and physical examination are contained in the chart in a previously completed note. Please refer to this note for this information. Discharge Providers Date of admission: 09/17/18 05:39 Primary care physician: Mark Ashford MD Consults: 09/17/18 13:40 Consult to Occupational Therapy Evaluate & Treat Comment: Physician Instructions: Evaluate and treat Consult to Physical Therapy Evaluate & Treat Comment: Physician Instructions: Evaluate and Treat 09/17/18 14:31 Consult to Gas Turbine Powerplant Mechanic Helper Routine Comment: Discharge provider: Brian Joseph MD Discharge Date: 09/21/18 Summary Discharge Diagnosis: 1. Lumbar spinal stenosis 2. Acute post hemorrhagic anemia Hospital Course: The patient was admitted to the hospital and taken directly to the operating room where he underwent a lumbar decompression and fusion. He made slow progress with physical therapy postoperatively and initially the plan was for him to go to a [facility] facility. He eventually made enough progress to be safe for discharge home. Status at Discharge Cognitive/behavioral status at discharge: Baseline Functional status at discharge: independent ambulation Overall status at discharge: patient is progressing back to baseline Time Spent with Patient Less than 30 minutes Exam Vital Signs (past 8 hours): - 09/21/18 04:09 Temperature 97.3 F L Pulse Rate 61 Respiratory Rate 16 Blood Pressure 106/53 L Pulse Oximetry 99 Oxygen Delivery Method Room Air Oxygen Flow Rate 0 Narrative Exam Narrative: Lumbar spine wound is dressed with a clean, dry and intact dressing. Light touch and motion are intact in both lower extremities. Objective Labs Result Diagrams: 09/18/18 05:58 09/18/18 05:58 Discharge Plan Discharge Plan Patient Disposition: Home Discharge comment: f/u 1.5 wks Discharge Med Rec/Prescriptions Prescriptions: New hydrocodone-acetaminophen 5-325 mg Tablet See Rx Instructions .ROUTE .COMPLEX PRN (Reason: Pain, Moderate (4-6)) Qty: 40 RF: 0 hydroxyzine pamoate 25 mg Capsule 25 mg PO Q4HR PRN (Reason: spasms) Qty: 30 RF: 0 Continued lamotrigine 150 mg Tablet 150 mg PO BID RF: 0 atorvastatin 80 mg Tablet 80 mg PO BEDTIME RF: 0 gabapentin 600 mg Tablet 600 mg PO BID RF: 0 aspirin 81 mg Tablet,Delayed Release (Dr/Ec) 81 mg PO DAILY RF: 0 tramadol 50 mg Tablet 50 mg PO BID RF: 0 pantoprazole 40 mg Tablet,Delayed Release (Dr/Ec) 40 mg PO DAILY RF: 0 lisinopril 10 mg Tablet 10 mg PO DAILY RF: 0 fluticasone [Flonase Allergy Relief] 50 mcg/actuation [place],Suspension 1 spray INTRANASAL DAILY PRN (Reason: seasonal allergies) RF: 0 nitroglycerin 0.4 mg Tablet, Sublingual 0.4 mg SUBLINGUAL Q5-15M PRN (Reason: Chest Pain) RF: 0 Follow up/Referrals: Mark Ashford MD [Primary Care Provider] - Brian Joseph MD [Physician] - 1 Week (Follow-up with Inderjit Allison MD at my office.) Provider Discharge Instructions Diet: Diet as Tolerated and Regular Activity: limited BLT 10 lbs max Cold/Heat Therapy: You may apply ice to your back for 15 min of every hour as needed for pain relief. Skin/Wound/Dressing Care Report to your healthcare provider any signs of infection, such as:: chills, fever, night sweats, increased pain, unusual drainage and unusual redness Dressing: may change dressing and shower POD#5 Visit Report/Discharge Packet Instructions: DI for Transforaminal Lumbar Interbody Fusion Stand Alone Forms: Surgery Discharge Discharge Data Primary Care Provider: Mark Ashford Attending Provider: Inderjit Allison Admit Date/Time: 09/17/18 05:39 Quality VTE Deep Vein Thrombosis/Pulmonary Embolism Present on Admission: No
[2018-09-21 09:00] VITALS: BP 125/67; PULSE 75; RESP 18; TEMP 36.4; O2SAT 95
[2018-09-21] MEDS: DOCUSATE 100 MG CAPSULE PO (09:39)
[2018-09-21] MEDS: LISINOPRIL 10 MG TABLET PO (09:39)
[2018-09-21] MEDS: PANTOPRAZOLE 40 MG TABLET PO (09:39)
[2018-09-21] MEDS: GABAPENTIN 600 MG TABLET PO (09:39)
[2018-09-21] MEDS: ASPIRIN EC 81 MG TABLET PO (09:39)
[2018-09-21] MEDS: lamoTRIgine 100 MG TABLET 150 MG PO (09:40)
[2018-09-21] MEDS: SODIUM CHLORIDE 0.9% FLUSH 10 ML IV (09:47)
[2018-09-21] MEDS: POLYETHYLENE GLYCOL 3350 17 GM POWD.PACK PO (09:47)
--- NOTE | 2018-09-21 10:16 | PT.IPTN ---
Current Diagnoses Spondylolisthesis, lumbar region (09/17/18) Spinal stenosis, lumbar region with neurogenic claudication (09/17/18) Surgery Performed Operation Date: 09/17/18 07:45 Actual Procedures p L3-4,L4-5 Laminectomy, L4-5 Instru. fusion w/bone graft - Inderjit Allison MD Physical Therapy Treatment Note M2 PT-IP Current Condition Start: 09/17/18 16:50 Freq: NEEDED Status: Active Protocol: Document 09/17/18 16:50 [facility] (Rec: 09/17/18 17:08 [facility] [id number]) Physical Therapy Current Condition Current Condition Evaluation Date 09/17/18 Treatment Diagnosis L4-5 TLIF Onset Date 09/17/18 Precautions Lumbar Precautions Log Roll No Twisting Limit Bending Lifting Restriction of 10 lbs Gait Belt above Incisional Area Weight Bearing Status Weight Bearing Status Weight Bear as Tolerated M3 PT-IP Subjective Start: 09/17/18 16:50 Freq: NEEDED Status: Active Protocol: Document 09/21/18 11:51 AB (Rec: 09/21/18 12:05 AB [id number]) Subjective Physical Therapy Visit Type Type Treatment Note Visit Start Time 10:16 Visit Stop Time 10:39 Total Visit Minutes 25 Number of BOAT BUFFER PLASTIC Visits 0 Physical Therapy Visit Comments Patient Comments pt agreeable to do PT Therapy Pain Assessment Pain When Pain Assessed At Rest Location Back Scale Used pain scale not stated M4 PT-IP Mobility and Gait Start: 09/17/18 16:50 Freq: NEEDED Status: Active Protocol: Document 09/21/18 11:51 AB (Rec: 09/21/18 12:05 AB [id number]) PT-Transfer Assessment Sit to and From Stand Sit to and from Stand Contact Guard Assistance Equipment Transfer Assistive Device Gait Belt Front Wheeled Walker Orthotic/Prosthetic Devices or Brace: No Transfers Transfer Destination Toilet Comments Mobility Comments caregiver training conducted. spouse assist pt with ambulation to the toilet and toileting needs. Gait Assessment Gait Gait Assistance Required: Contact Guard Assist Distance (Feet) 200 Able to Maintain Weight Bearing Status Yes During Gait Assistive Devices Assistive Device Gait Belt Front Wheeled Walker Orthotic/Prosthetic Devices or Brace: No Factors Limiting Gait Function Factors Limiting Gait Function Decreased Strength Pain Poor Balance Poor Safety Awareness Comments Gait Comments spouse assist pt in ambulation using FWW ~ 200 ft CGA Stair Climbing Assessment Evaluation Level of Assist On Stairs Minimal Assistance Maximal Assistance Devices Stair Climbing Assistive Devices Front Wheel Walker Technique/Endurance Stair Climbing Direction Ascend and Descend Stair Climbing Technique Step to Step Number of Steps Climbed 1 Query Text: Stair Climbing Set # Repetitions (reps) 4 Comments Stair Climbing Comments pt completed up/down platform step. first attempt, pt buckled on R knee requiring max A for regain balance back. educated pt on safety and to activate R quads. pt has poor safety awareness. pt stated that it is a wake up call for him. completed up/down steps again x 3 reps and spouse was able to assist with min A and cues for R quad activation. M5 PT-IP Objective Assessments Start: 09/17/18 16:50 Freq: NEEDED Status: Active Protocol: Document 09/17/18 16:50 [facility] (Rec: 09/17/18 17:08 [facility] [id number]) Orientation Orientation/Cognition Level of Alertness Alert Strength Lower Extremity Strength Assessment Bilaterally Impaired M6 PT-IP Treatment Start: 09/17/18 16:50 Freq: NEEDED Status: Active Protocol: Document 09/21/18 11:51 AB (Rec: 09/21/18 12:05 AB [id number]) Physical Therapy Treatment Education Education Provided Safety M7 PT-IP Assessment and Plan Start: 09/17/18 16:50 Freq: NEEDED Status: Active Protocol: Document 09/21/18 11:51 AB (Rec: 09/21/18 12:05 AB [id number]) PT Summary Assessment and Plan Potential Rehabilitation Potential Good Summary Impairments Pain ROM Strength Balance Coordination Sensation Tone Cognition Bed Mobility Transfers Gait Activity Tolerance Progress Towards Goals Slow Progress - Other Assessment Summary pt requires one person assist with mobility and continues to have (+) R knee buckling. caregiver training conducted and spouse was able to safely assist pt. pt will need homehealth PT upon d/c home due to R knee buckling and needs LE strengthening and standing balance training to improve ambulation and stairclimbing. Goals Bed Mobility Goal Standby Assistance Transfer Goal Standby Assistance Front Wheeled Walker Gait Goal Standby Assistance Front Wheel Walker Gait Distance 125 Other Goals up/down 1 step without rail and 15 steps with rail SBA Days to Meet Goals 5 Frequency of Treatment Frequency Of Treatment Twice a Day Treatment Plan Physical Therapy Treatment Plan Bed Mobility Training Transfer Training Gait Training Therapeutic Exercise Balance Retraining Post Op Education Discharge Planning Hot or Cold Pack Neuromuscular Re-ed Manual Therapy Other Recommendations and Next Treatment ambulation, stair climbing, Focus caregiver training Recommendations To Nursing Amount of Assist Needed 1 Person Assist Discharge Recommendations PT Discharge Recommendations Home with 24/7 Assist Home Health SNF Rehab Other Discharge Recommendations depending on progress: SNF vs home with 24/7 and homehealth PT
--- NOTE | 2018-09-21 10:27 | OT.IP.TRT ---
Current Diagnoses Spondylolisthesis, lumbar region (09/17/18) Spinal stenosis, lumbar region with neurogenic claudication (09/17/18) Surgery Performed Operation Date: 09/17/18 07:45 Actual Procedures p L3-4,L4-5 Laminectomy, L4-5 Instru. fusion w/bone graft - Inderjit Allison MD Occupational Therapy Treatment Note M2 OT-IP Current Condition Start: 09/19/18 07:27 Freq: Status: Active Protocol: Document 09/18/18 14:55 [facility] (Rec: 09/19/18 07:48 PJM [id number]) Occupational Therapy Current Condition Current Condition Evaluation Date 09/18/18 Treatment Diagnosis decreased self care, mobility s/p L3-4, L4-5 lami with L4-5 fusion Post Operative Precautions Lumbar Precautions Log Roll No Twisting Limit Bending Lifting Restriction of 10 lbs Gait Belt above Incisional Area M3 OT- IP Subjective and Pain Start: 09/19/18 07:27 Freq: Status: Active Protocol: Document 09/21/18 10:18 [facility] (Rec: 09/21/18 10:26 [facility] [id number]) OT- Subjective Occupational Therapy Visit Type Type Treatment Note Visit Start Time 09:55 Visit Stop Time 10:15 Total Visit Minutes 20 Occupational Therapy Visit Comments Patient Comments Pt feeling ready to go home. Pt's feeling more comfortable to take pt home now. OT Pain Assessment Pain When Pain Assessed During Mobility Pain Present Pain Present Pain Reported Location Back Intensity 5 Scale Used Numeric (1 - 10) M4 OT- IP ADL's Start: 09/19/18 07:27 Freq: Status: Active Protocol: Document 09/21/18 10:18 [facility] (Rec: 09/21/18 10:26 [facility] [id number]) OT ADL-Grooming General Evaluation Grooming Ability Standby Assistance Areas Needing Assistance Retrieving/Set-up of Grooming Items Comments OT Grooming Comments Pt able to incorporate back precautions for grooming needs with good safety. Pt prefer to spit into emesis basin but also able to safely lean at his hips with trunk straight with support of counter with hand to spit into the sink as well. OT ADL-Oral Care General Eval Oral Care Ability Independent OT ADL-Dressing General Eval Upper Body Dressing Ability Independent Lower Body Dressing Ability Standby Assistance Areas Needing Assistance Retrieving/Set-up of Clothing Assistive Devices Dressing Assistive Devices Long Handled Shoe [employer] Project Engineer Sock Aid Comments OT Dressing Comments Pt suggested to dress right side first and take out last, as right LE harder to lift then left. Pt able to use sock aid , formwork carpenter and shoe horn to practice with socks and slippers. OT ADL-Toileting Comments OT Toileting Comments Pt's able to take pt into and out of the bathroom. M5 OT- IP IADL's Start: 09/19/18 07:27 Freq: Status: Active Protocol: Document 09/18/18 14:55 [facility] (Rec: 09/19/18 07:48 [facility] [id number]) OT-Instrumental Activities of Daily Living Deficits IADL Deficits Identified Deficits Home Safety Awareness Awareness of Need for Assistance at Home Good Awareness Medication Management Medication Management Caregiver Provides Supervision Medication Management Comments pt states he can be forgetful Money Management Money Management Caregiver Provides Supervision Meal Preparation Meal Preparation Caregiver Provides Assist Bufferer Bufferer Caregiver Provides Assist Driving Driving Caregiver Provides Assist Driving Comments to assist until pt able M6 OT- IP Functional Cognition Start: 09/19/18 07:27 Freq: Status: Active Protocol: Document 09/21/18 10:18 [facility] (Rec: 09/21/18 10:26 [facility] [id number]) Cognitive Factors Limiting Selfcare Function Cognitive Ability Level of Alertness Alert Patient Orientation Name Place Situation Attention Span Ability Capable of Focused Attention Capable of Sustained Attention Ability to Follow Commands Able to Follow One Step Commands Memory Description Short Term Impaired Safety Awareness Underestimates Need for Assistance Problem Solving Ability Needs Assist to Identify Solutions Cognitive Comments Cognitive Assessment Comments Pt still needing occasional vc to slow down and not to twist . Pt needing re-education of LB AED, but able to show good safety today. M7 OT- IP Mobility and Balance Start: 09/19/18 07:27 Freq: Status: Active Protocol: Document 09/21/18 10:18 [facility] (Rec: 09/21/18 10:26 [facility] [id number]) OT- Bed Mobility Assessment Rolling Type of Rolling Roll to Left Level of Assistance Independent Sit to Supine Sit to Supine Assist Independent OT-Transfer Assessment Sit to and From Stand Sit to and from Stand Standby Assistance 1 Person Assistance Transfers Transfer Ability Standby Assistance Contact Guard Assistance 1 Person Assistance Technique Transfer Destination Bed Chair Devices Transfer Assistive Devices Gait Belt Front Wheeled Walker Comments Mobility Comments Pt able to walk in the room with SBA, however a bit anxious and tends to hold gait belt on pt. No buckling noted today while pt walking in the room. Spokeof technique for car transfer with pt and . OT- Balance Assessment Sitting Balance and Reactions Static Sitting Balance Ability Normal Dynamic Sitting Balance Ability Normal Standing Balance and Reactions Static Standing Balance Ability Good Dynamic Standing Balance Ability Fair M8 OT- IP Objective Assessments Start: 09/19/18 07:27 Freq: Status: Active Protocol: Document 09/18/18 14:55 [facility] (Rec: 09/19/18 07:48 [facility] [id number]) OT Gross Range of Motion Upper Extremity Range of Motion Assessment Within Functional Limits OT Strength Upper Extremity Strength Assessment Within Functional Limits OT- Coordination Assessment Comments Coordination Comments BUE WNL OT-Muscle Tone Assessment Muscle Tone WNL Yes OT Sensation Assessment Comments Summary Comments Pt denies deficits in BUE's Edema Edema Absent M9 OT- IP Assessment and Plan Start: 09/19/18 07:27 Freq: Status: Active Protocol: Document 09/21/18 10:18 [facility] (Rec: 09/21/18 10:26 [facility] [id number]) OT Summary Assessment and Plan Potential Rehabilitation Potential Good Summary Progress Towards Goals Progressing Toward Goals Assessment Summary Pt looking to go home today after caregiver training with PT. Discharge Recommendations OT Discharge Recommendations Home with Assistance
--- NOTE | 2018-09-21 10:40 | PC.NURSE ---
Addendum entered by Letitia Hernandez R.N. 09/21/18 13:56: DC - when spouse returned, pt given norco 5/325mg x 1 tab after lunch, reviewed dc instructions with pt and spouse, belongings gathered and tsf to , faculty instructor escorted to spouse's car. Original Note: Addendum entered by Letitia Hernandez R.N. 09/21/18 12:43: DC - Sb Foster and Danielle from both spoke to pt and spouse twice regarding home dc vs snf and the final decision was for pt to dc home, the scripts again given to spouse to fill prior to discharge. Original Note: Addendum entered by Letitia Hernandez R.N. 09/21/18 11:26: MS - after stair practice, pt ret to room, spouse stated I'm not taking him home, his leg buckled on the stairs, discussed pt dc with Sb Conte PA and Danielle in who will review status and see if snf available, the scripts were taken back and placed in chart. Original Note: AM NOTE - pt is alert, x1 person up w/fww, ambul br, ret to bed, coversite dsg cdi, ra 95, hr 72, discussed constipation and narcotics, spouse will have meds at home, did have bm this am, prior to phys therapy, given norco 5/325mg x 1 tab, will hold off vistaril until later at home, scripts given to spouse this am so she can drop off at pharmacy prior to discharge.
--- NOTE | 2018-09-21 15:32 | CM.DPNOTE ---
Addendum entered by Marisela Juan C, TELEPHONE ANSWERING SERVICE OPERATOR 09/21/18 15:51: Also IMM reviewed w/pt and signed. Original Note: Addendum entered by Marisela Irizarry, SARAH 09/21/18 15:35: Of note: [facility] at [facility] did have a bed available to pt if he had decided on SNF today. Original Note: DC Note: DC order for home placed by Dr Joseph this morning. Pt and spouse having a difficult time deciding between home vs SNF this morning. This TELEPHONE ANSWERING SERVICE OPERATOR met w/pt, spouse and PA Sb Foster to review DC concerns and discuss DC options. Inevitably spouse felt she could care for pt at home. Home health will not be ordered by Surgical team d/t spinal surgery; no PT for 6 weeks, this was explained by PA to pt/spouse. P: Home this morning, w/spouse via pov. Close outpt f/u. JW
== END 2018-09-21 13:40 | disposition home or self-care (01) | DRG 455 ==
PROVIDERS: Admitting Provider Orthopaedic Surgery; Family Provider Internal Medicine; PCP Internal Medicine; Visit Provider Orthopaedic Surgery
PROC: 0SG00AJ Fusion of Lumbar Vertebral Joint with Interbody Fusion Device, Posterior Approach, Anterior Column, Open Approach (ICD-10-PCS; principal; 2018-09-17 07:45)
DX: M48.062 Spinal stenosis, lumbar region with neurogenic claudication (principal); M43.16 Spondylolisthesis, lumbar region; M96.1 Postlaminectomy syndrome, not elsewhere classified; I25.10 Atherosclerotic heart disease of native coronary artery without angina pectoris; Z95.1 Presence of aortocoronary bypass graft; I10 Essential (primary) hypertension; E78.5 Hyperlipidemia, unspecified; M62.81 Muscle weakness (generalized)
CPT/HCPCS: 36415; 72100; 76000; 80048; 85014; 85018; 97116; 97162; 97165; 97530; 97535; C1776; C1788; J0330; J0595; J0690; J1170; J2250; J2274; J2405; J2704; J3010

== ENCOUNTER 2019-01-22 14:30 | Outpatient (RCR) | payer MEDICARE, OTHER, SELFPAY ==
[2018-09-17 14:18] VITALS: BMI 26.6
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
--- NOTE | 2018-10-29 15:08 | PT.OPPOC ---
Current Diagnoses Spondylolisthesis, lumbar region (10/29/18) Spinal stenosis, lumbar region with neurogenic claudication (10/29/18) Difficulty in walking, not elsewhere classified (10/29/18) Abnormal posture (10/29/18) Weakness (10/29/18) Strain of muscle, fascia and tendon of lower back, subsequent encounter (10/29/18) Arthrodesis status (10/29/18) Provider Visit Care Team Role Provider Type Mark Ashford MD Primary Care Provider Physician Specialty: Internal Medicine Address: [address] [place] [address], [phone] Email: Inderjit Allison MD Attending Provider Physician Specialty: Orthopedic Surgery Address: [address] [place] [address], [phone] Email: [email or web address] Plan Of Care PT-OP-T Assessment and Plan Start: 10/29/18 08:09 Freq: Status: Active Protocol: Document 10/29/18 08:58 [facility] (Rec: 10/29/18 09:46 [facility] [id number]) Physical Therapy Assessment Rehab Potential Rehabilitation Potential Good Evaluation Complexity Number of Personal Factors/Comorbidities 3 or More Number of Body Systems Impaired 4 or More Clinical Presentation at Evaluation Evolving Impairments Impairments Activity Tolerance Balance Functional Activities Functional Mobility Gait Pain Posture ROM Soft Tissue Mobility Strength Goals functional ability Short Term Goal (STG) Pt will have improveemnt of ERIC from 40% to 30% to show functional improvement. STG Duration 11/29/18 Prison Goal (LTG) Pt will be able to sail with no greater than 2/10 pain LTG Duration 12/29/18 strength Short Term Goal (STG) Pt will be indep with HEP STG Duration 11/29/18 Quality Control Microbiologist Goal (LTG) Pt will have 5/5 LE strength in order to allow him to return to his typical activity level with min pain. LTG Duration 12/29/18 walking Short Term Goal (STG) Pt will be able to walk .5 mile without numbness in RLE STG Duration 11/29/18 Quality Control Microbiologist Goal (LTG) Pt will be able to go on trails for 2-3 miles with no greater than 2/10 pain. LTG Duration 12/29/18 Assessment Summary Assessment Pt presents 6 weeks s/p L3-5 laminectomy and L4-5 fusion with current issues of pain, tingling and weakness in B buttocks & RLE. His RLE has given out and caused him to fall to the ground a couple times since surgery, but at MD follow, MD was pleased with progress and removed his bending & twisting restrictions. He has overall dec ROM, dec strength (LE & core), dec balance, dec activity tolerance and impaired gait. He would benefit from skilled PT to address these concerns. Physical Therapy Plan Frequency and Duration Frequency of Treatment 2x/Week Duration of Treatment 2 months Plan of Care Start Date 10/29/18 Plan of Care End Date 12/29/18 Therapeutic Interventions Therapeutic Interventions Aquatic Therapy Balance Training Gait Training Home Exercise Program Joint Mobilizations Manual Therapy Neuromuscular Re-education Patient/Caregiver Education Self-Care/Home Management Soft Tissue Mobilization Taping Therapeutic Activities Therapeutic Exercises Modalities Cold Pack/Ice Massage Electric Stimulation Hot Packs Ultrasound Next Visit Focus/Plan Next Note Type Treatment Note Next Visit Plan Balance, STM, supine core stability Plan of Care Dates Plan of Care Start Date 10/29/18 Plan of Care End Date 12/29/18 Please Sign and Return: I have reviewed this Plan of Care and certify that the skilled therapy services above are required to meet the patient?s needs. Physician Signature Date Printed Name and Credentials Clinical Instructor Signature Printed Name and Credentials
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
--- NOTE | 2018-11-26 10:42 | PT.OTN ---
Current Diagnoses Spondylolisthesis, lumbar region (11/26/18) Spinal stenosis, lumbar region with neurogenic claudication (11/26/18) Strain of muscle, fascia and tendon of lower back, subsequent encounter (11/26/18) Arthrodesis status (11/26/18) Physical Therapy Treatment Note PT-OP-A Visit Information Start: 10/29/18 08:09 Freq: Status: Active Protocol: Document 11/26/18 09:10 [facility] (Rec: 11/26/18 09:51 [facility] [id number]) Out-Patient Physical Therapy Visit Information Visit Information Visit Type Treatment Note Visit Start Time 09:00 Visit Stop Time 09:40 Total Visit Minutes 40 Visit Number 9 Number of COMMODITY MERCHANT Visits 0 PT-OP-B Current Condition Start: 10/29/18 08:09 Freq: Status: Active Protocol: Document 10/29/18 08:58 [facility] (Rec: 10/29/18 09:46 [facility] [id number]) Current Condition History of Current Condition Onset Date 09/17/18 Current Complaints s/p lumbar fusion & laminectomies History of Current Condition Pt reports pain down leg where he loses strength and has fallen to the ground a couple times. Pt has lumbar fusion 07/24. Pt had numbness and tingling down to R foot and into B buttocks. Pt was walking 3 walks with a total of 2 miles. Pt got out of bed once about 2 weeks after surgery where it hurt his back and now can only do a total of 1.5 miles otherwise pain. Pt reports he saw MD last week and MD cleared him of his restrictions as long as its not painful. He did some work on t he BBQ recently and has been sore the past 4 days and had a lot of weakness in buttocks making it difficult for him to get up yesterday. Pt reports some inc in strength since surgery. REports he cannot go down the stairs reciprocally and requires cane and rail to ascend reciprocally. Pt reports he tore his disc when trying to lift his motorcyle up but has had LBP for a long time and in 89 had a microdiscetomy. Reports he can't walk further than .5 miles before RLE gets numb. Reports he has an universal gym and an upright bike at home. Typical routine is a couple mile walk in the guy. 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 Notes he tried to squat down over the weekend to pet a dog and his RLE didn' t want to hold him up so he tipped back on his butt. Nothing hurt. PT-OP-F Manual Assessment Start: 10/29/18 08:09 Freq: Status: Active Protocol: Document 10/29/18 08:58 [facility] (Rec: 10/29/18 09:46 [facility] [id number]) Manual Assessments Soft Tissue Assessment Soft Tissue Mobility Assessment scar immobility B; tightness in glutes & piriformis & B ITB PT-OP-G Mobility & Gait Start: 10/29/18 08:09 Freq: Status: Active Protocol: Document 10/29/18 08:58 [facility] (Rec: 10/29/18 09:46 [facility] [id number]) OP Gait Assessment Comments Gait Comments Dec post depression and dec stance time on RLE. Pt amb with SPC, but amb at home without AD. Pt uses trekking poles when going on walks. PT-OP-L Special Tests Start: 10/29/18 08:09 Freq: Status: Active Protocol: Document 10/29/18 08:58 [facility] (Rec: 10/29/18 09:46 [facility] [id number]) Special Tests Lumbar Spine Special Tests Straight Leg Raise Test Results significant HS tightness PT-OP-M Strength Start: 10/29/18 08:09 Freq: Status: Active Protocol: Document 10/29/18 08:58 [facility] (Rec: 10/29/18 09:46 [facility] [id number]) Hip Strength Hip Manual Muscle Testing Right Flexion (L2) 3+ Fair+ Extension (S1) 3+ Fair+ Abduction 3+ Fair+ External Rotation 3+ Fair+ Internal Rotation 5 Normal Comments pain abd Left Flexion (L2) 4+ Good+ Extension (S1) 4- Good- Abduction 4+ Good+ External Rotation 4+ Good+ Internal Rotation 5 Normal Knee Strength Knee Manual Muscle Testing Right Flexion (S2) 4+ Good+ Extension (L3) 4- Good- Left Flexion (S2) 4+ Good+ Extension (L3) 5 Normal Ankle/Foot Strength Ankle and Foot Manual Muscle Testing Right Dorsiflexion (L4) 5 Normal Plantarflexion (S1) 5 Normal Left Dorsiflexion (L4) 5 Normal Plantarflexion (S1) 4+ Good+ Comments tested seated PT-OP-Q Treatments Start: 10/29/18 08:09 Freq: Status: Active Protocol: Document 11/26/18 09:10 [facility] (Rec: 11/26/18 09:51 [facility] [id number]) Cardio Equipment Bicycle (Upright) Duration (Minutes) 5 Resistance 12 Seat Position 8 Other core focus Gym Equipment Shuttle Balance red clips Details Fwd & side: WBOS & NBOS; fwd: staggered stance B Comments while hitting balloon Sport Cord step ups Exercise Details 5 in step Cord/Resistance red Reps/Duration 8 B Comments fwd & backward step ups Manual Therapy Treatment Soft Tissue Mobilization quad Body Location lat R Mobilization Type Rolling Comments cedrick test position QL Body Location QL Mobilization Type Rolling Intensity/Depth Moderate Body Position Sidelying scar tissue Body Location scar tissue Mobilization Type Rolling Intensity/Depth Moderate Body Position Sidelying Joint Mobilizations innominate Joint innominate Direction R ext FM Neuro Re-Education Treatment Balance Activities fwd/back Details resisted Equipment green Reps/Duration 2x20ft side steps Details resisted Equipment green Reps/Duration 2x20ft bosu Details step ups Reps/Duration 10 each Comments rail only as needed PT-OP-R Modalities Start: 10/29/18 08:09 Freq: Status: Active Protocol: Document 11/07/18 09:07 [facility] (Rec: 11/07/18 09:47 [facility] [id number]) Hot Pack/Cold Pack Treatment Cold Pack Location lumbar Patient Position Hooklying Treatment Duration (minutes) 10 PT-OP-T Assessment and Plan Start: 10/29/18 08:09 Freq: Status: Active Protocol: Document 11/26/18 09:10 [facility] (Rec: 11/26/18 09:51 [facility] [id number]) Physical Therapy Assessment Goals functional ability Short Term Goal (STG) Pt will have improveemnt of ERIC from 40% to 30% to show functional improvement. STG Duration 11/29/18 Mcc Goal (LTG) Pt will be able to sail with no greater than 2/10 pain LTG Duration 12/29/18 strength Short Term Goal (STG) Pt will be indep with HEP STG Duration 11/29/18 Cable Machine Operator Goal (LTG) Pt will have 5/5 LE strength in order to allow him to return to his typical activity level with min pain. LTG Duration 12/29/18 walking Short Term Goal (STG) Pt will be able to walk .5 mile without numbness in RLE STG Duration achieved Cable Machine Operator Goal (LTG) Pt will be able to go on trails for 2-3 miles with no greater than 2/10 pain. LTG Duration 12/29/18 Assessment Summary Assessment Pt is improving with step ups with improvement in strength in RLE but did have significant difficulty with post step ups. Significant R quad tightness Physical Therapy Plan Frequency and Duration Frequency of Treatment 2x/Week Duration of Treatment 2 months Plan of Care Start Date 10/29/18 Plan of Care End Date 12/29/18 Next Visit Focus/Plan Next Note Type Treatment Note Next Visit Plan side step squat, lifting mechanics
--- NOTE | 2018-11-28 09:47 | PT.OTN ---
Current Diagnoses Spondylolisthesis, lumbar region (11/28/18) Spinal stenosis, lumbar region with neurogenic claudication (11/28/18) Strain of muscle, fascia and tendon of lower back, subsequent encounter (11/28/18) Arthrodesis status (11/28/18) Physical Therapy Treatment Note PT-OP-A Visit Information Start: 10/29/18 08:09 Freq: Status: Active Protocol: Document 11/28/18 09:05 [facility] (Rec: 11/28/18 09:47 [facility] [id number]) Out-Patient Physical Therapy Visit Information Visit Information Visit Type Progress Note Visit Start Time 09:00 Visit Stop Time 09:40 Total Visit Minutes 40 Visit Number 05/25 Number of IMMIGRATION CASE WORKER Visits 0 PT-OP-B Current Condition Start: 10/29/18 08:09 Freq: Status: Active Protocol: Document 10/29/18 08:58 [facility] (Rec: 10/29/18 09:46 [facility] [id number]) Current Condition History of Current Condition Onset Date 09/17/18 Current Complaints s/p lumbar fusion & laminectomies History of Current Condition Pt reports pain down leg where he loses strength and has fallen to the ground a couple times. Pt has lumbar fusion 07/24. Pt had numbness and tingling down to R foot and into B buttocks. Pt was walking 3 walks with a total of 2 miles. Pt got out of bed once about 2 weeks after surgery where it hurt his back and now can only do a total of 1.5 miles otherwise pain. Pt reports he saw MD last week and MD cleared him of his restrictions as long as its not painful. He did some work on t he BBQ recently and has been sore the past 4 days and had a lot of weakness in buttocks making it difficult for him to get up yesterday. Pt reports some inc in strength since surgery. REports he cannot go down the stairs reciprocally and requires cane and rail to ascend reciprocally. Pt reports he tore his disc when trying to lift his motorcyle up but has had LBP for a long time and in 89 had a microdiscetomy. Reports he can't walk further than .5 miles before RLE gets numb. Reports he has an universal gym and an upright bike at home. Typical routine is a couple mile walk in the guy. Treatment Goals Patient/Caregiver Goals Walk longer, be able to get out on his sailboat, motorcycle PT-OP-C Subjective Start: 10/29/18 08:09 Freq: Status: Active Protocol: Document 11/28/18 09:05 [facility] (Rec: 11/28/18 09:47 [facility] [id number]) OP-PT Subjective Patient Comments Patient Comments Pt reports he will be gone for the weekend so he is unsure how much exercises he will be able to do. Reports R knee buckled yesterday when walking down the hill and was able to catch himself with the pole. PT-OP-F Manual Assessment Start: 10/29/18 08:09 Freq: Status: Active Protocol: Document 10/29/18 08:58 [facility] (Rec: 10/29/18 09:46 [facility] [id number]) Manual Assessments Soft Tissue Assessment Soft Tissue Mobility Assessment scar immobility B; tightness in glutes & piriformis & B ITB PT-OP-G Mobility & Gait Start: 10/29/18 08:09 Freq: Status: Active Protocol: Document 10/29/18 08:58 [facility] (Rec: 10/29/18 09:46 [facility] [id number]) OP Gait Assessment Comments Gait Comments Dec post depression and dec stance time on RLE. Pt amb with SPC, but amb at home without AD. Pt uses trekking poles when going on walks. PT-OP-L Special Tests Start: 10/29/18 08:09 Freq: Status: Active Protocol: Document 10/29/18 08:58 [facility] (Rec: 10/29/18 09:46 [facility] [id number]) Special Tests Lumbar Spine Special Tests Straight Leg Raise Test Results significant HS tightness PT-OP-M Strength Start: 10/29/18 08:09 Freq: Status: Active Protocol: Document 11/28/18 09:05 [facility] (Rec: 11/28/18 09:47 [facility] [id number]) Hip Strength Hip Manual Muscle Testing Right Flexion (L2) 4+ Good+ Extension (S1) 4- Good- Abduction 4 Good External Rotation 4 Good Internal Rotation 5 Normal Left Flexion (L2) 5 Normal Extension (S1) 4- Good- Abduction 4+ Good+ External Rotation 5 Normal Internal Rotation 5 Normal Knee Strength Knee Manual Muscle Testing Right Flexion (S2) 4+ Good+ Extension (L3) 4+ Good+ Left Flexion (S2) 5 Normal Extension (L3) 5 Normal Ankle/Foot Strength Ankle and Foot Manual Muscle Testing Right Dorsiflexion (L4) 5 Normal Plantarflexion (S1) 5 Normal Comments standing PF testing Left Dorsiflexion (L4) 5 Normal Plantarflexion (S1) 5 Normal PT-OP-Q Treatments Start: 10/29/18 08:09 Freq: Status: Active Protocol: Document 11/28/18 09:05 [facility] (Rec: 11/28/18 09:47 [facility] [id number]) Cardio Equipment Bicycle (Upright) Duration (Minutes) 5 Resistance 12 Seat Position 8 Other core focus Gym Equipment Shuttle Balance red clips Details Fwd & side: WBOS & NBOS; fwd: staggered stance B Comments while hitting balloon Sport Cord step ups Exercise Details 5 in step Cord/Resistance red Reps/Duration 10B Comments side& backward step ups Manual Therapy Treatment Soft Tissue Mobilization piriformis Body Location piriformis Mobilization Type Sustained Pressure Intensity/Depth Moderate Body Position Sidelying scar tissue Body Location scar tissue Mobilization Type Rolling Intensity/Depth Moderate Body Position Sidelying Neuro Re-Education Treatment Balance Activities side steps Details resisted w/squat Equipment green Reps/Duration 1x20ft PT-OP-R Modalities Start: 10/29/18 08:09 Freq: Status: Active Protocol: Document 11/07/18 09:07 [facility] (Rec: 11/07/18 09:47 [facility] [id number]) Hot Pack/Cold Pack Treatment Cold Pack Location lumbar Patient Position Hooklying Treatment Duration (minutes) 10 PT-OP-T Assessment and Plan Start: 10/29/18 08:09 Freq: Status: Active Protocol: Document 11/28/18 09:05 [facility] (Rec: 11/28/18 09:47 [facility] [id number]) Physical Therapy Assessment Goals functional ability Short Term Goal (STG) Pt will have improveemnt of ERIC from 40% to 30% to show functional improvement. STG Duration 11/29/18 Bacteriology Technician Goal (LTG) Pt will be able to sail with no greater than 2/10 pain LTG Duration 12/29/18 strength Short Term Goal (STG) Pt will be indep with HEP STG Duration 11/29/18-achieved progressing as tolerated Bacteriology Technician Goal (LTG) Pt will have 5/5 LE strength in order to allow him to return to his typical activity level with min pain. LTG Duration 12/29/18 walking Short Term Goal (STG) Pt will be able to walk .5 mile without numbness in RLE STG Duration achieved Bacteriology Technician Goal (LTG) Pt will be able to go on trails for 2-3 miles with no greater than 2/10 pain. LTG Duration 12/29/18 Assessment Summary Assessment Pt is improving with his strength and his balance. He cont to improve with gait tolerance and LE activity tolerance. He is noting less limitations and would benefit from cont PT Physical Therapy Plan Frequency and Duration Frequency of Treatment 2x/Week Duration of Treatment 2 months Plan of Care Start Date 10/29/18 Plan of Care End Date 12/29/18 Next Visit Focus/Plan Next Note Type Treatment Note Next Visit Plan Cont to work on quad/glute control
--- NOTE | 2018-12-03 09:43 | PT.OTN ---
Current Diagnoses Spondylolisthesis, lumbar region (12/03/18) Spinal stenosis, lumbar region with neurogenic claudication (12/03/18) Strain of muscle, fascia and tendon of lower back, subsequent encounter (12/03/18) Arthrodesis status (12/03/18) Physical Therapy Treatment Note PT-OP-A Visit Information Start: 10/29/18 08:09 Freq: Status: Active Protocol: Document 12/03/18 08:57 [facility] (Rec: 12/03/18 09:43 [facility] [id number]) Out-Patient Physical Therapy Visit Information Visit Information Visit Type Treatment Note Visit Start Time 09:00 Visit Stop Time 09:40 Total Visit Minutes 40 Visit Number 06/25 Number of PROGRAM ADMIN Visits 0 PT-OP-B Current Condition Start: 10/29/18 08:09 Freq: Status: Active Protocol: Document 10/29/18 08:58 [facility] (Rec: 10/29/18 09:46 [facility] [id number]) Current Condition History of Current Condition Onset Date 09/17/18 Current Complaints s/p lumbar fusion & laminectomies History of Current Condition Pt reports pain down leg where he loses strength and has fallen to the ground a couple times. Pt has lumbar fusion 07/24. Pt had numbness and tingling down to R foot and into B buttocks. Pt was walking 3 walks with a total of 2 miles. Pt got out of bed once about 2 weeks after surgery where it hurt his back and now can only do a total of 1.5 miles otherwise pain. Pt reports he saw MD last week and MD cleared him of his restrictions as long as its not painful. He did some work on t he BBQ recently and has been sore the past 4 days and had a lot of weakness in buttocks making it difficult for him to get up yesterday. Pt reports some inc in strength since surgery. REports he cannot go down the stairs reciprocally and requires cane and rail to ascend reciprocally. Pt reports he tore his disc when trying to lift his motorcyle up but has had LBP for a long time and in 94 had a microdiscetomy. Reports he can't walk further than .5 miles before RLE gets numb. Reports he has an universal gym and an upright bike at home. Typical routine is a couple mile walk in the guy. Treatment Goals Patient/Caregiver Goals Walk longer, be able to get out on his sailboat, motorcycle PT-OP-C Subjective Start: 10/29/18 08:09 Freq: Status: Active Protocol: Document 12/03/18 08:57 [facility] (Rec: 12/03/18 09:43 [facility] [id number]) OP-PT Subjective Patient Comments Patient Comments Pt reports he did a lot of walking including on sand w/o AD. PT-OP-F Manual Assessment Start: 10/29/18 08:09 Freq: Status: Active Protocol: Document 10/29/18 08:58 [facility] (Rec: 10/29/18 09:46 [facility] [id number]) Manual Assessments Soft Tissue Assessment Soft Tissue Mobility Assessment scar immobility B; tightness in glutes & piriformis & B ITB PT-OP-G Mobility & Gait Start: 10/29/18 08:09 Freq: Status: Active Protocol: Document 10/29/18 08:58 [facility] (Rec: 10/29/18 09:46 [facility] [id number]) OP Gait Assessment Comments Gait Comments Dec post depression and dec stance time on RLE. Pt amb with SPC, but amb at home without AD. Pt uses trekking poles when going on walks. PT-OP-L Special Tests Start: 10/29/18 08:09 Freq: Status: Active Protocol: Document 10/29/18 08:58 [facility] (Rec: 10/29/18 09:46 [facility] [id number]) Special Tests Lumbar Spine Special Tests Straight Leg Raise Test Results significant HS tightness PT-OP-M Strength Start: 10/29/18 08:09 Freq: Status: Active Protocol: Document 11/28/18 09:05 [facility] (Rec: 11/28/18 09:47 [facility] [id number]) Hip Strength Hip Manual Muscle Testing Right Flexion (L2) 4+ Good+ Extension (S1) 4- Good- Abduction 4 Good External Rotation 4 Good Internal Rotation 5 Normal Left Flexion (L2) 5 Normal Extension (S1) 4- Good- Abduction 4+ Good+ External Rotation 5 Normal Internal Rotation 5 Normal Knee Strength Knee Manual Muscle Testing Right Flexion (S2) 4+ Good+ Extension (L3) 4+ Good+ Left Flexion (S2) 5 Normal Extension (L3) 5 Normal Ankle/Foot Strength Ankle and Foot Manual Muscle Testing Right Dorsiflexion (L4) 5 Normal Plantarflexion (S1) 5 Normal Comments standing PF testing Left Dorsiflexion (L4) 5 Normal Plantarflexion (S1) 5 Normal PT-OP-Q Treatments Start: 10/29/18 08:09 Freq: Status: Active Protocol: Document 12/03/18 08:57 [facility] (Rec: 12/03/18 09:43 [facility] [id number]) Cardio Equipment Bicycle (Upright) Duration (Minutes) 5 Resistance 12 Seat Position 8 Other core focus Gym Equipment Shuttle Balance red clips Details Fwd & side: WBOS & NBOS; fwd: staggered stance B Comments while hitting balloon Sport Cord step ups Exercise Details 5 in step Cord/Resistance red Reps/Duration 10B ea Comments fwd,side& backward step ups Therapeutic Exercises Standing Exercises lunges Standing Exercise Name pivot and lunge to 5 positions Reps/Minutes 2x through set B Manual Therapy Treatment Soft Tissue Mobilization piriformis Body Location piriformis Mobilization Type Sustained Pressure Intensity/Depth Moderate Body Position Sidelying scar tissue Body Location scar tissue Mobilization Type Rolling Intensity/Depth Moderate Body Position Sidelying Neuro Re-Education Treatment Balance Activities stairs Details up/down 26 stairs reicprocally Comments SBA. rail for descent for balance side steps Details resisted w/squat Equipment blue Reps/Duration 1x20ft PT-OP-R Modalities Start: 10/29/18 08:09 Freq: Status: Active Protocol: Document 11/07/18 09:07 [facility] (Rec: 11/07/18 09:47 [facility] [id number]) Hot Pack/Cold Pack Treatment Cold Pack Location lumbar Patient Position Hooklying Treatment Duration (minutes) 10 PT-OP-T Assessment and Plan Start: 10/29/18 08:09 Freq: Status: Active Protocol: Document 12/03/18 08:57 [facility] (Rec: 12/03/18 09:43 [facility] [id number]) Physical Therapy Assessment Goals functional ability Short Term Goal (STG) Pt will have improveemnt of ERIC from 40% to 30% to show functional improvement. STG Duration 11/29/18 Alf Goal (LTG) Pt will be able to sail with no greater than 2/10 pain LTG Duration 12/29/18 strength Short Term Goal (STG) Pt will be indep with HEP STG Duration 11/29/18-achieved progressing as tolerated Repairer Veneer Sheet Goal (LTG) Pt will have 5/5 LE strength in order to allow him to return to his typical activity level with min pain. LTG Duration 12/29/18 walking Short Term Goal (STG) Pt will be able to walk .5 mile without numbness in RLE STG Duration achieved Repairer Veneer Sheet Goal (LTG) Pt will be able to go on trails for 2-3 miles with no greater than 2/10 pain. LTG Duration 12/29/18 Assessment Summary Assessment Pt was challenged by pivot and lunge exercise. He cont to improve iwth tolerance to activity. Physical Therapy Plan Frequency and Duration Frequency of Treatment 2x/Week Duration of Treatment 2 months Plan of Care Start Date 10/29/18 Plan of Care End Date 12/29/18 Next Visit Focus/Plan Next Note Type Treatment Note Next Visit Plan Cont to work on quad/glute control
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
--- NOTE | 2018-12-24 13:56 | PT.OPPOC ---
Current Diagnoses Spondylolisthesis, lumbar region (01/08/19) Spinal stenosis, lumbar region with neurogenic claudication (01/08/19) Strain of muscle, fascia and tendon of lower back, subsequent encounter (01/08/19) Arthrodesis status (01/08/19) Provider Visit Care Team Role Provider Type Mark Ashford MD Primary Care Provider Physician Specialty: Internal Medicine Address: [address] [place] [address], [id number] Email: Inderjit Allison MD Attending Provider Physician Specialty: Orthopedic Surgery Address: [address] [place] [address], [phone] Email: [email or web address] Plan Of Care PT-OP-T Assessment and Plan Start: 10/29/18 08:09 Freq: Status: Active Protocol: Document 01/08/19 10:37 [facility] (Rec: 01/08/19 11:19 [facility] [id number]) Physical Therapy Assessment Goals functional ability Short Term Goal (STG) Pt will have improveemnt of ERIC from 40% to 30% to show functional improvement. STG Duration achieved to 12% Game Preserve Manager Goal (LTG) Pt will be able to sail with no greater than 2/10 pain 12/24- has not sailed LTG Duration 02/28/19 strength Short Term Goal (STG) Pt will be indep with HEP STG Duration 11/29/18-achieved progressing as tolerated Prison Goal (LTG) Pt will have 5/5 LE strength in order to allow him to return to his typical activity level with min pain. 12/24-improving functional strength LTG Duration 02/07/19 walking Short Term Goal (STG) Pt will be able to walk .5 mile without numbness in RLE STG Duration achieved Prison Goal (LTG) Pt will be able to go on trails for 2-3 miles with no greater than 2/10 pain. LTG Duration achieved Assessment Summary Assessment Pt is improving in ability to go into low squat but still has difficulty getting up especially when ljifting objects. Strength is showing good improvement. Physical Therapy Plan Frequency and Duration Frequency of Treatment 1x/Week Duration of Treatment 2 months Plan of Care Start Date 12/24/18 Plan of Care End Date 02/23/19 Next Visit Focus/Plan Next Note Type Treatment Note Next Visit Plan COnt ot progress low squat and lifting ability Plan of Care Dates Plan of Care Start Date 12/24/18 Plan of Care End Date 02/23/19 Please Sign and Return: I have reviewed this Plan of Care and certify that the skilled therapy services above are required to meet the patient?s needs. Physician Signature Date Printed Name and Credentials Clinical Instructor Signature Printed Name and Credentials
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
== END 2019-01-31 10:26 | disposition home or self-care (01) ==
LOC: PHYS 14:30
PROVIDERS: PCP Internal Medicine; Visit Provider Orthopaedic Surgery
DX: M48.062 Spinal stenosis, lumbar region with neurogenic claudication (principal); M43.16 Spondylolisthesis, lumbar region; S39.012D Strain of muscle, fascia and tendon of lower back, subsequent encounter; Z98.1 Arthrodesis status
CPT/HCPCS: 97010; 97110; 97112; 97140; 97162; 97530

== ENCOUNTER → 2019-01-27 08:31 | Outpatient (CLI) | payer MEDICARE, OTHER, SELFPAY ==
[2018-09-17 14:18] VITALS: BMI 26.6
[2019-01-27 09:27] LABS: Alanine Aminotransferase 36 IU/L (21-72); Albumin 4.2 g/dL (3.5-5.0); Albumin Globulin Ratio 1.9 (1.0-2.8); Alkaline Phosphatase 53 U/L (38-126); Aspartate Aminotransferase 24 IU/L (17-59); Blood Urea Nitrogen 21 mg/dL (9-20); Calcium 9.4 mg/dL (8.4-10.2); Carbon Dioxide 31 mmol/L (22-32); Chloride 103 mmol/L (98-107); Cholesterol 130 mg/dL (140-199); Estimated Glomerular Filt Rate > 60.0 mL/min (>60); Globulin 2.2 g/dL (1.7-4.1); Glucose 113 mg/dL (80-110); HDL Cholesterol 53 mg/dL (40-60); HEMOLYSIS < 15 (0-50); LDL Cholesterol Calculated 64 mg/dL (<100); Potassium 4.5 mmol/L (3.4-5.1); Sodium 139 mmol/L (137-145); Total Protein 6.4 g/dL (6.3-8.2); Triglycerides 66 mg/dL (35-150)
[2019-01-27 09:57] LABS: Prostate Specific Antigen Scrn 1.97 ng/mL (0.1-4.0)
== END ==
PROVIDERS: PCP Internal Medicine; Visit Provider Internal Medicine
DX: I25.10 Atherosclerotic heart disease of native coronary artery without angina pectoris (principal); I10 Essential (primary) hypertension; G40.109 Localization-related (focal) (partial) symptomatic epilepsy and epileptic syndromes with simple partial seizures, not intractable, without status epilepticus; E78.2 Mixed hyperlipidemia; Z12.5 Encounter for screening for malignant neoplasm of prostate
CPT/HCPCS: 36415; 80053; 80061; G0103

== ENCOUNTER → 2020-02-13 08:40 | Outpatient (CLI) | payer MEDICARE, OTHER, SELFPAY ==
[2018-09-17 14:18] VITALS: BMI 26.6
[2020-02-13 14:33] LABS: Alanine Aminotransferase 35 IU/L (<50); Albumin 4.2 g/dL (3.5-5.0); Albumin Globulin Ratio 1.9 (1.0-2.8); Alkaline Phosphatase 52 U/L (38-126); Aspartate Aminotransferase 26 IU/L (17-59); Bilirubin Total 0.9 mg/dL (0.2-1.3); Blood Urea Nitrogen 21 mg/dL (9-20); Calcium 9.5 mg/dL (8.4-10.2); Carbon Dioxide 29 mmol/L (22-32); Chloride 103 mmol/L (98-107); Cholesterol 129 mg/dL (140-199); Estimated Glomerular Filt Rate > 60.0 mL/min (>60); Globulin 2.2 g/dL (1.7-4.1); Glucose 102 mg/dL (80-110); HDL Cholesterol 47 mg/dL (40-60); HEMOLYSIS < 15 (0-50); LDL Cholesterol Calculated 68 mg/dL (<100); Potassium 4.6 mmol/L (3.4-5.1); Sodium 137 mmol/L (137-145); Total Protein 6.4 g/dL (6.3-8.2); Triglycerides 68 mg/dL (35-150)
[2020-02-13 15:05] LABS: Prostate Specific Antigen Scrn 2.61 ng/mL (0.1-4.0)
== END ==
PROVIDERS: PCP Internal Medicine; Referring Provider Internal Medicine; Visit Provider Internal Medicine
DX: I25.10 Atherosclerotic heart disease of native coronary artery without angina pectoris (principal); E78.2 Mixed hyperlipidemia; I10 Essential (primary) hypertension; Z12.5 Encounter for screening for malignant neoplasm of prostate
CPT/HCPCS: 36415; 80053; 80061; G0103

== ENCOUNTER → 2020-03-24 15:19 | Outpatient (ROUT) | payer MEDICARE, OTHER, SELFPAY ==
[2018-09-17 14:18] VITALS: BMI 26.6
[2020-03-24 16:29] LABS: Prostate Specific Antigen 3.04 ng/mL (0.10-4.00); TSH w/ Reflex to FT4 1.38 uIU/mL (0.47-4.68)
== END ==
PROVIDERS: PCP Internal Medicine; Visit Provider Internal Medicine
DX: N40.1 Benign prostatic hyperplasia with lower urinary tract symptoms (principal); E78.2 Mixed hyperlipidemia
CPT/HCPCS: 84153; 84443

== ENCOUNTER → 2020-04-01 14:39 | Outpatient (CLI) | payer MEDICARE, OTHER, SELFPAY ==
[2018-09-17 14:18] VITALS: BMI 26.6
--- NOTE | 2020-04-01 | DI.RAD.S_ITS ---
PROCEDURE: XR FOOT RT MIN 3V INDICATIONS: RT FT INJURY TECHNIQUE: 3 views of the foot were acquired. COMPARISON: None. FINDINGS: Bones: There is a moderately displaced, mildly comminuted fracture of the shaft of the 5th metatarsal. There is no intra-articular involvement seen. No additional fractures are detected. Age-appropriate bony degenerative changes are seen, which are worst involving the 1st metatarsophalangeal joint. Incidental note is made of an accessory ossicle, an os peroneum. Soft tissues: Soft tissue swelling is seen. Ankle clips are seen. Atherosclerotic calcification is noted. IMPRESSION: Moderately displaced fracture of the 5th metatarsal shaft. Dictated by: Navdeep Murry M.D. on 04/01/2020 at 14:14 Approved by: Navdeep Murry M.D. on 04/01/2020 at 14:16
== END ==
PROVIDERS: PCP Internal Medicine; Referring Provider Family Medicine; Visit Provider Family Medicine
DX: S92.351A Displaced fracture of fifth metatarsal bone, right foot, initial encounter for closed fracture (principal); X58.XXXA Exposure to other specified factors, initial encounter
CPT/HCPCS: 73630

== ENCOUNTER → 2020-08-27 09:41 | Outpatient (CLI) | payer MEDICARE, OTHER, SELFPAY ==
[2018-09-17 14:18] VITALS: BMI 26.6
[2020-08-27] MEDS: COVID-19 VACC #1, MRNA(MOD) 100 MCG/0.5 ML VIAL IM (09:44)
== END ==
PROVIDERS: PCP Internal Medicine; Visit Provider Internal Medicine
DX: Z23 Encounter for immunization (principal)
CPT/HCPCS: 0011A; 91301

== ENCOUNTER → 2020-09-24 09:41 | Outpatient (CLI) | payer MEDICARE, OTHER, SELFPAY ==
[2018-09-17 14:18] VITALS: BMI 26.6
[2020-09-24] MEDS: COVID-19 VACC #2, MRNA(MOD) 100 MCG/0.5 ML VIAL IM (09:43)
== END ==
PROVIDERS: PCP Internal Medicine; Visit Provider Internal Medicine
DX: Z23 Encounter for immunization (principal)
CPT/HCPCS: 0012A; 91301

== ENCOUNTER → 2020-12-29 08:32 | Outpatient (CLI) | payer MEDICARE, OTHER, SELFPAY ==
[2018-09-17 14:18] VITALS: BMI 26.6
--- NOTE | 2020-12-29 | DI.MRI.S_ITS ---
PROCEDURE: MR LUMBAR SPINE WO CON INDICATIONS: LOW BACK PAIN TECHNIQUE: Noncontrast sagittal T1 spin echo and T2 fast echo, sagittal STIR, axial T1 and T2 fast spin echo through the lumbar spine. In cases with scoliosis, additional coronal T2 fast spin echo may be performed. COMPARISON: [facility], CR, XR LUMBAR SPINE 2 OR 3 VIEWS, 12/21/2020, 15:52. [facility], MR, MR LUMBAR SPINE WO CON, 03/01/2018, 7:46. FINDINGS: Image quality: Excellent. Alignment and Curvature: There is normal bony alignment. Bone Marrow: There is been discectomy and fusion at L4-5 with interbody cage graft posterior ajay and screw instrumentation. Degenerative endplate changes noted at L2-3 and L5-S1. No vertebral body compression fractures. Spinal Cord: Conus medullaris terminates at the L1 level. Visualized cord demonstrates normal signal and size. Paraspinous Soft Tissues: No paravertebral masses. T12-L1: Disc height is preserved. No disc bulge or protrusion. No central or foraminal stenosis present. L1-L2: Disc height is preserved. There is mild asymmetric left circumferential disc bulge and hypertrophic facet joints present. Short high-intensity zone in the posterior annulus reflects annular fissure or tear. No central stenosis. There is severe left and moderate right foraminal stenosis present. L2-L3: Mild disc height loss and circumferential disc bulge is asymmetric to the right. Hypertrophic facet joints present. There is mild central stenosis and degenerative endplate changes noted. Severe right and moderate left foraminal stenosis present. L3-L4: Moderate disc space narrowing with circumferential disc bulge and ligamentum flavum hypertrophy results in moderate severe central stenosis, increased from the prior. Hypertrophic facet joints results in moderate left and severe right foraminal stenosis. L4-L5: There has been discectomy with interbody cage graft well positioned. Hypertrophic facet joints contribute to [id number] central stenosis. There is severe right and moderate left foraminal stenosis. L5-S1: Severe disc space narrowing with degenerative endplate changes present. Circumferential disc bulge present without central stenosis. Hypertrophic facet joints result in moderate right and severe left foraminal stenosis. IMPRESSION: 1. Multilevel degenerative disc disease and arthropathy narrow results in moderate to severe central stenosis at L3-4, increased from the prior exam 2. Multilevel arthropathy and foraminal stenosis, particularly severe in the lower lumbar spine 3. L4-5 discectomy and posterior instrumentation in good position. Dictated by: Tony Couch M.D. on 12/29/2020 at 9:47 Approved by: Tony Couch M.D. on 12/29/2020 at 10:13
== END ==
PROVIDERS: PCP Internal Medicine; Referring Provider Orthopaedic Surgery; Visit Provider Orthopaedic Surgery
DX: M51.16 Intervertebral disc disorders with radiculopathy, lumbar region (principal); M51.17 Intervertebral disc disorders with radiculopathy, lumbosacral region; M47.26 Other spondylosis with radiculopathy, lumbar region; M47.27 Other spondylosis with radiculopathy, lumbosacral region; M48.061 Spinal stenosis, lumbar region without neurogenic claudication; M48.07 Spinal stenosis, lumbosacral region
CPT/HCPCS: 72148

== ENCOUNTER → 2021-03-10 10:55 | Outpatient (CLI) | payer MEDICARE, OTHER, SELFPAY ==
[2018-09-17 14:18] VITALS: BMI 26.6
[2021-03-10 13:45] LABS: Hematocrit 40.7 % (41-53); Hemoglobin 14.1 g/dL (13.5-17.5); Mean Corpuscular HGB Conc 34.6 % (30-36); Mean Corpuscular Hemoglobin 31.9 PG (26-34); Mean Corpuscular Volume 92.1 fL (80-100); Platelet Count 210 X10^3/uL (150-400); Red Blood Cell Count 4.42 X10^6/uL (4.5-5.9); Red Cell Distribution Width 13.2 % (11.6-14.8); White Blood Cell Count 5.4 X10^3/uL (4.5-11.0)
== END ==
PROVIDERS: PCP Internal Medicine; Referring Provider Internal Medicine Cardiovascular Disease; Visit Provider Internal Medicine Cardiovascular Disease
DX: I25.10 Atherosclerotic heart disease of native coronary artery without angina pectoris (principal)
CPT/HCPCS: 36415; 85027

== ENCOUNTER → 2022-11-13 10:05 | Outpatient (CLI) | payer MEDICARE, OTHER, SELFPAY ==
[2022-08-09 11:23] VITALS: BMI 26.6
[2022-11-13 10:42] LABS: Hematocrit 42.8 % (41-53); Hemoglobin 14.9 g/dL (13.5-17.5); Mean Corpuscular HGB Conc 34.7 % (30-36); Mean Corpuscular Hemoglobin 31.7 PG (26-34); Mean Corpuscular Volume 91.3 fL (80-100); Platelet Count 190 X10^3/uL (150-400); Red Blood Cell Count 4.69 X10^6/uL (4.5-5.9); Red Cell Distribution Width 14.3 % (11.6-14.8); White Blood Cell Count 4.8 X10^3/uL (4.5-11.0)
[2022-11-13 11:04] LABS: Alanine Aminotransferase 36 IU/L (<50); Albumin 4.3 g/dL (3.5-5.0); Albumin Globulin Ratio 1.5 (1.0-2.8); Alkaline Phosphatase 50 U/L (38-126); Aspartate Aminotransferase 34 IU/L (17-59); BUN Creatinine Ratio 30.3 (6-22); Bilirubin Total 0.9 mg/dL (0.2-1.3); Blood Urea Nitrogen 23 mg/dL (9-20); Calcium 9.4 mg/dL (8.4-10.2); Carbon Dioxide 28 mmol/L (22-32); Chloride 102 mmol/L (98-107); Cholesterol 148 mg/dL (140-199); Estimated Glomerular Filt Rate > 60 mL/min (>60); Globulin 2.8 g/dL (1.7-4.1); Glucose 80 mg/dL (80-110); HDL Cholesterol 69 mg/dL (40-60); HEMOLYSIS < 15 (0-50); LDL Cholesterol Calculated 66 mg/dL (<100); Potassium 4.6 mmol/L (3.4-5.1); Sodium 138 mmol/L (137-145); Total Protein 7.1 g/dL (6.3-8.2); Triglycerides 65 mg/dL (35-150)
[2022-11-13 11:35] LABS: Prostate Specific Antigen 6.45 ng/mL (0.10-4.00)
[2022-11-16 14:06] LABS: Lamotrigine Lamictal 6.7 ug/mL (2.0-20.0)
== END ==
PROVIDERS: Family Provider Internal Medicine; PCP Internal Medicine; Referring Provider Internal Medicine; Visit Provider Internal Medicine
DX: E78.2 Mixed hyperlipidemia (principal); R97.20 Elevated prostate specific antigen [PSA]; G40.909 Epilepsy, unspecified, not intractable, without status epilepticus; I10 Essential (primary) hypertension; I25.10 Atherosclerotic heart disease of native coronary artery without angina pectoris; Z80.42 Family history of malignant neoplasm of prostate
CPT/HCPCS: 36415; 80053; 80061; 80175; 84153; 84443; 85027

== ENCOUNTER → 2022-12-15 11:50 | Outpatient (CLI) | payer MEDICARE, OTHER, SELFPAY ==
[2022-08-09 11:23] VITALS: BMI 26.6
--- NOTE | 2022-12-15 | DI.MRI.S_ITS ---
PROCEDURE: MR PELIS WO/W CON INDICATIONS: Elevated prostate specific antigen [PSA] TECHNIQUE: Coronal HASTE, axial T1 FSE with fat saturation, 3-plane nonbreath-hold T2 FSE. After the administration of contrast, dynamic axial, delayed axial and coronal VIBE or 2-D FLASH with fat saturation through the pelvis. Optional diffusion weighted imaging and ADC may be performed. COMPARISON: None. FINDINGS: Image quality: Diffusion weighted and dynamic contrast enhanced images are diagnostic. Prostate: 3.2 by 4 x 2.8 cm (/14, 6/). Estimated volume is 19 cc. Mildly T2 hypointense heterogenous striated appearance of the peripheral zone is commonly seen with current or prior prostatitis, PI-RADS 2. Ill-defined hypointensity is seen in the anterior transitional zone and anterior fibromuscular stroma, corresponding to early contrast enhancement, and [id number], ill-defined diffusion restriction (23/64, 10/20). The seminal vesicles are clear. There is no definite extracapsular extension. The right anterior fibromuscular stroma region measures 1.1 x 0.6 cm (11/17) by 0.8 cm (/). T2 score 4. DWI score 3. DCE positive. PI-RADS 4. The left anterior transitional zone lesion measures about 1 x 1 x 0.9 cm (4/16, 6/14). T2 score 3. DWI score 3. DCE positive. PI-RADS 3. Genitourinary system: No distal ureter dilation. Minimal bladder trabeculations. Bowel and peritoneum: There are colonic diverticula. Nodes and vessels: No adenopathy by size criteria. No aneurysmal vessel identified. Soft tissues: Unremarkable Bones: Degenerative changes and partially seen fusion hardware. No acute or suspicious finding. IMPRESSION: PI-RADS 4 lesion in the right anterior fibromuscular stroma. PI-RADS 3 lesion in the left anterior transitional zone. Possible sequelae of prostatitis in the peripheral zone. Other incidental findings above. Dictated by: Asad Salcedo M.D. on 12/15/2022 at 13:21 Approved by: Asad Salcedo M.D. on 12/15/2022 at 13:33
== END ==
PROVIDERS: Family Provider Internal Medicine; PCP Internal Medicine; Referring Provider Urology; Visit Provider Urology
DX: N42.9 Disorder of prostate, unspecified (principal); R97.20 Elevated prostate specific antigen [PSA]; K57.90 Diverticulosis of intestine, part unspecified, without perforation or abscess without bleeding; Z98.1 Arthrodesis status; Z80.42 Family history of malignant neoplasm of prostate
CPT/HCPCS: 72197

== ENCOUNTER → 2023-02-14 10:22 | Outpatient (CLI) | payer MEDICARE, OTHER, SELFPAY ==
[2022-08-09 11:23] VITALS: BMI 26.6
[2023-02-14 11:23] LABS: BUN Creatinine Ratio 29.6 (6-22); Blood Urea Nitrogen 24 mg/dL (9-20); Calcium 9.2 mg/dL (8.4-10.2); Carbon Dioxide 30 mmol/L (22-32); Chloride 100 mmol/L (98-107); Estimated Glomerular Filt Rate > 60 mL/min (>60); Glucose 116 mg/dL (80-110); HEMOLYSIS < 15 (0-50); Potassium 4.4 mmol/L (3.4-5.1); Sodium 137 mmol/L (137-145)
== END ==
PROVIDERS: Urology; Family Provider Internal Medicine; PCP Internal Medicine; Referring Provider Internal Medicine; Visit Provider Internal Medicine
DX: N40.0 Benign prostatic hyperplasia without lower urinary tract symptoms (principal)
CPT/HCPCS: 36415; 80048

== ENCOUNTER → 2023-02-16 09:39 | Outpatient (CLI) | payer MEDICARE, OTHER, SELFPAY ==
[2022-08-09 11:23] VITALS: BMI 26.6
--- NOTE | 2023-02-16 09:42 | DI.CT.S_ITS ---
PROCEDURE: CT ABDOMEN PELVIS W CON INDICATIONS: New diagnosis prostate cancer TECHNIQUE: After the administration of intravenous contrast, axial sections acquired from the lung bases to the pubic symphysis. Coronal and sagittal reformats were performed. For radiation dose reduction, the following was used: automated exposure control, adjustment of mA and/or kV according to patient size. COMPARISON: [facility], MR, MR PELVIS WO/W CON, 12/15/2022, 12:14. FINDINGS: Image quality: Excellent. Lung bases: Unremarkable. Heart: No significant findings. ABDOMEN: Liver: Unremarkable. Gallbladder: Partially contracted and within the gallbladder neck region several small partially calcified gallstones are present, of a small size that easily could transit into the cystic duct or common bile duct. There is no sign of acute cholecystitis or biliary obstruction at this time. Biliary ducts: Unremarkable. Pancreas: Unremarkable. Spleen: Unremarkable. Adrenal Glands: Unremarkable. Kidneys and Ureters: Unremarkable. Stomach and Bowel: Stomach, small bowel loops, and colon are unremarkable. Peritoneum: No abnormal intraperitoneal fluid. No free air. Ventral Wall: No hernias. Abdominal Nodes: No retroperitoneal or mesenteric adenopathy by size criteria. Vessels: Aorta and inferior vena cava are normal in size. PELVIS: Pelvic Organs: Unremarkable. Bladder: Unremarkable. Pelvic Nodes: No enlarged lymph nodes. Miscellaneous: No hernias are seen. Several surgical clips are present at the right lower quadrant adjacent to the cecum suggestive of prior appendectomy. No adenopathy or enlargement of the prostate is seen. Bones: Unremarkable. Degenerative changes along the spine are moderate to moderately severe but no osteoblastic lesion is seen that would suggest presence of metastatic disease from prostate carcinoma. IMPRESSION: No evidence of metastatic disease, no enlarged lymph nodes seen. Normal size of prostate gland. Degenerative changes along the spine are present to a degree that nuclear medicine bone scan would be expected to be abnormal in that area, but no focal osseous lesion is seen that would suggest presence of osseous metastatic disease. Prominent diverticulosis along the sigmoid colon, no acute diverticulitis found. Incidental note is made of several small partially calcified gallstones within the gallbladder neck area, of a size that easily could transit into the cystic duct or common duct. Dictated by: Jose M Duffy M.D. on 02/16/2023 at 14:31 Approved by: Jose M Duffy M.D. on 02/16/2023 at 14:40
--- NOTE | 2023-02-16 09:42 | DI.NM.S_ITS ---
PROCEDURE: NM BONE SCAN WHOLE BODY RADIOPHARMACEUTICAL: 19.0 mCi Tc-99m MDP IV. INDICATIONS: New diagnosis prostate cancer TECHNIQUE: Delayed whole-body scintigrams were obtained approximately 3-4 hours after intravenous injection of radiotracer. Anterior and posterior views were acquired from vertex to feet. Additional left and right oblique views of the pelvis were obtained. COMPARISON: [facility], CR, XR LUMBAR SPINE 2 OR 3 VIEWS, 05/21/2019, 9:35. [facility], MR, MR PELVIS WO/W CON, 12/15/2022, 12:14. [facility], CT, CT ABDOMEN PELVIS W CON, 02/16/2023, 11:33. FINDINGS: No lesions are identified in skull, sternum, clavicles, scapulae, ribs, bony pelvis, and visualized shafts of the long bones. There are foci of increased uptake in cervical, thoracic and lumbar spine most likely secondary to degenerative disc and facet disease; early metastasis to spine could be obscured by degenerative changes. There are foci of increased periarticular activity involving shoulders, wrists, hands, hips, left knee, left midfoot and the base of the right great toe, compatible with degenerative/arthritic changes. IMPRESSION: No definitive scintigraphic findings to suggest osseous metastatic disease. Dictated by: Cornelia Macias M.D. on 02/16/2023 at 16:56 Approved by: Cornelia Macias M.D. on 02/16/2023 at 17:00
== END ==
PROVIDERS: Family Provider Internal Medicine; PCP Internal Medicine; Referring Provider Urology; Visit Provider Urology
DX: C61 Malignant neoplasm of prostate (principal); K57.30 Diverticulosis of large intestine without perforation or abscess without bleeding
CPT/HCPCS: 74177; 78306; A9503; Q9967

== ENCOUNTER → 2023-04-05 10:33 | Outpatient (CLI) | payer MEDICARE, OTHER, SELFPAY ==
[2022-08-09 11:23] VITALS: BMI 26.6
[2023-04-05 11:51] LABS: Prostate Specific Antigen 0.463 ng/mL (0.10-4.00)
== END ==
PROVIDERS: Family Provider Internal Medicine; PCP Internal Medicine; Referring Provider Urology; Visit Provider Urology
DX: C61 Malignant neoplasm of prostate (principal)
CPT/HCPCS: 36415; 84153

== ENCOUNTER → 2023-05-30 12:03 | Outpatient (CLI) | payer MEDICARE, OTHER, SELFPAY ==
[2022-08-09 11:23] VITALS: BMI 26.6
[2023-05-30 14:14] LABS: Prostate Specific Antigen < 0.064 ng/mL (0.10-4.00)
== END ==
PROVIDERS: Family Provider Internal Medicine; PCP Internal Medicine; Referring Provider Urology; Visit Provider Urology
DX: C61 Malignant neoplasm of prostate (principal)
CPT/HCPCS: 36415; 84153

== ENCOUNTER → 2023-06-14 12:11 | Outpatient (CLI) | payer MEDICARE, OTHER, SELFPAY ==
[2022-08-09 11:23] VITALS: BMI 26.6
--- NOTE | 2023-06-14 12:13 | DI.RAD.S_ITS ---
Bone Density Report Name: MARISA SYLVESTER Age: 73 Sex: Male Ethnicity: White Date of : 1950 Indication: screening for osteoporosis; Referring Provider: SANDRO ENGLAND Study: Bone densitometry was performed. Exam Date: June 14, 2023 Accession number: [id number] Bone Density: Region BMD T-score Z-score Classification Femoral Neck (Left) 1.028 1.6 1.9 Normal Total Hip (Left) 1.130 1.5 1.3 Normal Femoral Neck (Right) 1.046 1.8 2.1 Normal Total Hip (Right) 1.137 1.6 1.4 Normal Total Hip Mean 1.133 1.6 1.4 Normal Total Forearm (Left) 0.753 3.2 2.6 Normal 1/3 Forearm (Left) 0.865 2.8 2.3 Normal UD Forearm (Left) 0.602 2.7 2.2 Normal World Health Organization criteria for BMD impression classify patients as: Normal (T-score at or above -1.0), Osteopenia (T-score between -1.0 and -2.5), or Osteoporosis (T-score at or below -2.5). 10-year Fracture Risk: FRAX not reported because: All T-scores for Spine Total, Hip Total, Femoral Neck at or above -1.0 Impression: The patient has normal bone mass. Discussion: BONE DENSITY IS ABOVE THE MINIMUM DESIRABLE LEVEL AT ALL SKELETAL SITES TESTED. This patient's bone mineral density is above the minimum desirable level (T-score -1.0 or better) at all sites measured. The patient should follow a healthful lifestyle (good nutrition with adequate calcium and vitamin D, and appropriate weight-bearing exercise). Follow-Up: Consider repeating this study in 5 years or sooner if there is some new clinical indication. Reported by: SHOLA MARTINEZ M.D. on 06/14/2023 12:49:00 PM.
== END ==
PROVIDERS: Family Provider Internal Medicine; PCP Internal Medicine; Referring Provider Urology; Visit Provider Urology
DX: Z79.818 Long term (current) use of other agents affecting estrogen receptors and estrogen levels (principal); C61 Malignant neoplasm of prostate
CPT/HCPCS: 77080; 77081

== ENCOUNTER → 2023-08-30 14:35 | Outpatient (CLI) | payer MEDICARE, OTHER, SELFPAY ==
[2022-08-09 11:23] VITALS: BMI 26.6
[2023-08-30 16:16] LABS: Prostate Specific Antigen < 0.064 ng/mL (0.10-4.00)
== END ==
PROVIDERS: Family Provider Internal Medicine; PCP Internal Medicine; Referring Provider Urology; Visit Provider Urology
DX: C61 Malignant neoplasm of prostate (principal)
CPT/HCPCS: 36415; 84153

== ENCOUNTER → 2023-11-08 10:25 | Outpatient (CLI) | payer MEDICARE, OTHER, SELFPAY ==
[2022-08-09 11:23] VITALS: BMI 26.6
[2023-11-08 11:43] LABS: Prostate Specific Antigen < 0.064 ng/mL (0.10-4.00)
== END ==
PROVIDERS: Family Provider Internal Medicine; PCP Internal Medicine; Referring Provider Urology; Visit Provider Urology
DX: C61 Malignant neoplasm of prostate (principal)
CPT/HCPCS: 36415; 84153

== ENCOUNTER → 2024-01-17 09:51 | Outpatient (CLI) | payer MEDICARE, OTHER, SELFPAY ==
[2022-08-09 11:23] VITALS: BMI 26.6
--- NOTE | 2024-01-17 09:52 | DI.RAD.S_ITS ---
PROCEDURE: XR FOOT RT MIN 3V INDICATIONS: Right foot pain, base of great toe TECHNIQUE: 3 views of the foot were acquired. COMPARISON: [facility], CR, XR FOOT RT MIN 3V, 04/01/2020, 13:52. FINDINGS: Bones: Old healed fracture involving 5th metatarsal shaft is seen. Moderate to severe 1st MTP joint osteoarthritic changes are noted with significant joint space narrowing, extensive subchondral sclerosis and marginal osteophyte formation. Osteoarthritic changes also noted involving 1st metatarsal head is sesamoid bones. No acute fracture or dislocation. No suspicious bony lesions. Soft tissues: No tibiotalar joint effusion. Achilles tendon appears normal. 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 No acute fracture or dislocation. Old healed fracture involving 5th metatarsal shaft. Dictated by: Shaun Castellano M.D. on 01/17/2024 at 13:19 Approved by: Shaun Castellano M.D. on 01/17/2024 at 13:20
== END ==
PROVIDERS: Family Provider Internal Medicine; PCP Internal Medicine; Referring Provider Nurse Practitioner Family; Visit Provider Nurse Practitioner Family
DX: M79.671 Pain in right foot (principal); Z87.81 Personal history of (healed) traumatic fracture
CPT/HCPCS: 73630

== ENCOUNTER → 2024-02-15 13:48 | Outpatient (CLI) | payer MEDICARE, OTHER, SELFPAY ==
[2022-08-09 11:23] VITALS: BMI 26.6
[2024-02-15 15:14] LABS: Appearance Urine UA CLEAR; Bilirubin Urine UA NEGATIVE (NEGATIVE); Color Urine UA YELLOW; Glucose Urine UA NEGATIVE (Negative); Ketones Urine UA NEGATIVE (NEGATIVE); Leukocyte Esterase Urine UA NEGATIVE (NEGATIVE); Nitrite Urine UA NEGATIVE (Negative); Occult Blood Urine UA 3+ (Negative); Protein Urine UA TRACE (Negative); Specific Gravity Urine UA 1.025 (1.000-1.035); Urobilinogen Urine UA 0.2 E.U./dL (0.2); pH Urine UA 5.5 (4.5-8.0)
[2024-02-15 15:28] LABS: Bacteria Urine Occasional (0-1); Culture Indicated Urine Cult Not Indicated; RBC Urine 10-30/HPF (0-5/HPF); Squamous Epithelial Cell Urine 0-1 /HPF (0-5/HPF); Urine Volume 10mL (spun); WBC Urine 0-1/HPF (0-5/HPF)
[2024-02-15 15:52] LABS: Prostate Specific Antigen < 0.064 ng/mL (0.10-4.00)
== END ==
PROVIDERS: Family Provider Internal Medicine; PCP Internal Medicine; Referring Provider Urology; Visit Provider Urology
DX: C61 Malignant neoplasm of prostate (principal); N40.1 Benign prostatic hyperplasia with lower urinary tract symptoms; N13.8 Other obstructive and reflux uropathy; R31.9 Hematuria, unspecified
CPT/HCPCS: 36415; 81001; 84153

== ENCOUNTER → 2024-03-11 11:40 | Outpatient (CLI) | payer MEDICARE, OTHER, SELFPAY ==
[2022-08-09 11:23] VITALS: BMI 26.6
--- NOTE | 2024-03-11 11:42 | DI.RAD.S_ITS ---
PROCEDURE: XR CHEST 2V INDICATIONS: Cough TECHNIQUE: 2 views of the chest were acquired. COMPARISON: None. FINDINGS: Surgical changes and devices: CABG changes. Some of the sternotomy wires are broken. Lungs and pleura: No dense consolidation or pleural effusion. Mediastinum: Normal heart size Bones and chest wall: Degenerative changes IMPRESSION: No acute radiographic abnormality Dictated by: Asad Salcedo M.D. on 03/11/2024 at 15:44 Approved by: Asad Salcedo M.D. on 03/11/2024 at 15:45
== END ==
PROVIDERS: Family Provider Internal Medicine; PCP Internal Medicine; Referring Provider Nurse Practitioner Family; Visit Provider Nurse Practitioner Family
DX: R05.9 Cough, unspecified (principal)
CPT/HCPCS: 71046

== ENCOUNTER → 2024-06-17 10:42 | Outpatient (CLI) | payer MEDICARE, OTHER, SELFPAY ==
[2022-08-09 11:23] VITALS: BMI 26.6
[2024-06-17 11:05] LABS: Hematocrit 38.1 % (41-53); Hemoglobin 13.1 g/dL (13.5-17.5); Mean Corpuscular HGB Conc 34.3 % (30-36); Mean Corpuscular Hemoglobin 32.3 PG (26-34); Mean Corpuscular Volume 94.2 fL (80-100); Platelet Count 182 X10^3/uL (150-400); Red Blood Cell Count 4.05 X10^6/uL (4.5-5.9); Red Cell Distribution Width 13.9 % (11.6-14.8); White Blood Cell Count 3.8 X10^3/uL (4.5-11.0)
[2024-06-17 11:23] LABS: Alanine Aminotransferase 23 IU/L (<50); Albumin 4.3 g/dL (3.5-5.0); Albumin Globulin Ratio 1.9 (1.0-2.8); Alkaline Phosphatase 57 U/L (38-126); Aspartate Aminotransferase 27 IU/L (17-59); Bilirubin Total 0.7 mg/dL (0.2-1.3); Blood Urea Nitrogen 23 mg/dL (9-20); Calcium 9.3 mg/dL (8.4-10.2); Carbon Dioxide 27 mmol/L (22-32); Chloride 105 mmol/L (98-107); Cholesterol 152 mg/dL (140-199); Estimated Glomerular Filt Rate > 60 mL/min (>60); Globulin 2.3 g/dL (1.7-4.1); Glucose 101 mg/dL (80-110); HDL Cholesterol 73 mg/dL (40-60); HEMOLYSIS < 15 (0-50); LDL Cholesterol Calculated 62 mg/dL (<100); Potassium 4.2 mmol/L (3.4-5.1); Sodium 137 mmol/L (137-145); Total Protein 6.6 g/dL (6.3-8.2); Triglycerides 86 mg/dL (35-150)
[2024-06-17 12:02] LABS: Prostate Specific Antigen < 0.064 ng/mL (0.10-4.00)
== END ==
PROVIDERS: Family Provider Internal Medicine; PCP Internal Medicine; Referring Provider Urology; Visit Provider Urology
DX: E78.2 Mixed hyperlipidemia (principal); I10 Essential (primary) hypertension; R97.20 Elevated prostate specific antigen [PSA]; I25.10 Atherosclerotic heart disease of native coronary artery without angina pectoris
CPT/HCPCS: 36415; 80053; 80061; 84153; 85027

== ENCOUNTER → 2024-09-15 11:34 | Outpatient (CLI) | payer MEDICARE, OTHER, SELFPAY ==
[2022-08-09 11:23] VITALS: BMI 26.6
[2024-09-15 12:36] LABS: Prostate Specific Antigen < 0.064 ng/mL (0.10-4.00)
== END ==
PROVIDERS: Referring Provider Urology; Visit Provider Urology
DX: C61 Malignant neoplasm of prostate (principal)
CPT/HCPCS: 36415; 84153

== ENCOUNTER → 2024-12-12 15:01 | Outpatient (CLI) | payer MEDICARE, OTHER, SELFPAY ==
[2022-08-09 11:23] VITALS: BMI 26.6
--- NOTE | 2024-12-12 15:03 | DI.CT.S_ITS ---
PROCEDURE: CT ANGIO CHEST PE PROTOCOL INDICATIONS: CHEST PAIN AND ABNORMAL D-DIMER TECHNIQUE: After the administration of intravenous contrast, 2 mm thick sections acquired from the pulmonary apices to the posterior costophrenic angles. 3-dimensional maximum intensity projection (MIP) coronal and sagittal reformats were then acquired through the thorax. For radiation dose reduction, the following was used: automated exposure control, adjustment of mA and/or kV according to patient size. COMPARISON: None. FINDINGS: Image quality: Diagnostic. Pulmonary arteries: Pulmonary arteries are normal in size, and demonstrate no intraluminal filling defects to suggest central pulmonary embolism. Lower Neck: No enlarged lymph nodes. Thyroid: No thyroid nodules which require sonographic follow up, per consensus guidelines. Axillae: No enlarged lymph nodes. Chest Wall: Unremarkable. Bones: Unremarkable. Lungs and Pleura: No pneumothorax or pleural effusions. No consolidation or suspicious nodules. Heart: Heart size is normal. No pericardial effusion. Remote CABG. Possibly thrombosed, stented bypass graft to the LAD. Patent proximal LAD stent. Suggestion of possible thrombosed right coronary artery stent. 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 Mediastinum and Kesha: No enlarged lymph nodes. Esophagus: No wall thickening. No hiatal hernia. Upper Abdomen: Tiny calcified gallbladder neck stones. No gallbladder wall thickening or abnormal distention of the gallbladder. IMPRESSION: 1. No acute pulmonary embolus. 2. No acute pulmonary process. 3. Very advanced calcified atherosclerotic plaque involving the coronary arteries, remote CABG. 4. A stented bypass graft to the distal LAD may potentially be thrombosed, or it may be too early in the bolus to visualize a patent lumen in this bypass graft. 5. Cholelithiasis. Consider potential cardiology referral for nonemergent cardiac evaluation if symptoms suggest ongoing chronic ischemia. Dictated by: Pan Fischer M.D. on 12/12/2024 at 16:29 Approved by: Pan Fischer M.D. on 12/12/2024 at 16:38
[2024-12-12 15:30] LABS: Estimated Glomerular Filt Rate > 60 mL/min (>60)
[2024-12-12 17:05] LABS: Prostate Specific Antigen < 0.064 ng/mL (0.10-4.00)
== END ==
PROVIDERS: Radiology Diagnostic Radiology; Urology; PCP Family Medicine; Referring Provider Internal Medicine Cardiovascular Disease; Visit Provider Internal Medicine Cardiovascular Disease
DX: I25.10 Atherosclerotic heart disease of native coronary artery without angina pectoris (principal); C61 Malignant neoplasm of prostate; R56.9 Unspecified convulsions; R07.9 Chest pain, unspecified; K80.20 Calculus of gallbladder without cholecystitis without obstruction; Z95.1 Presence of aortocoronary bypass graft; Z95.5 Presence of coronary angioplasty implant and graft
CPT/HCPCS: 36415; 71275; 82565; 84153; Q9967

== ENCOUNTER → 2025-02-27 09:45 | Outpatient (CLI) | payer MEDICARE, OTHER, SELFPAY ==
[2025-01-16 13:49] VITALS: BMI 26.6
--- NOTE | 2025-02-27 09:47 | DI.RAD.S_ITS ---
PROCEDURE: XR FOOT RT MIN 3V INDICATIONS: Right great toe injury TECHNIQUE: 3 views of the foot were acquired. COMPARISON: [facility], CR, XR FOOT RT MIN 3V, 01/17/2024, 9:00. FINDINGS: On the lateral image there is irregularity in the proximal base of the right 1st distal phalanx dorsal aspect suspicious for minimally displaced fracture with intra-articular extension to interphalangeal joint. Severe degenerative changes of the right 1st metatarsophalangeal joint with joint space narrowing, osteophytes, sclerotic changes and flattening/remodeling. Moderate degenerative changes tibiotalar, talonavicular, calcaneocuboid, tarsal-metatarsal joints. Mild vascular calcifications. No radiographic evidence of dislocation or high attenuation soft tissue foreign body. IMPRESSION: Suspected acute fracture proximal base right 1st distal phalanx as discussed above. Degenerative changes. Dictated by: Jorge Frausto M.D. on 02/27/2025 at 10:10 Approved by: Jorge Frausto M.D. on 02/27/2025 at 10:13
== END ==
PROVIDERS: Referring Provider Registered Nurse; Visit Provider Registered Nurse
DX: M79.671 Pain in right foot (principal)
CPT/HCPCS: 73630

== ENCOUNTER → 2025-03-10 10:42 | Outpatient (CLI) | payer MEDICARE, OTHER, SELFPAY ==
[2025-01-16 13:49] VITALS: BMI 26.6
[2025-03-10 12:01] LABS: Prostate Specific Antigen < 0.064 ng/mL (0.10-4.00)
== END ==
PROVIDERS: PCP Family Medicine; Referring Provider Urology; Visit Provider Urology
DX: C61 Malignant neoplasm of prostate (principal)
CPT/HCPCS: 36415; 84153

== ENCOUNTER → 2025-05-29 19:28 | Outpatient (CLI) | payer MEDICARE, OTHER, SELFPAY ==
[2025-01-16 13:49] VITALS: BMI 26.6
--- NOTE | 2025-05-29 19:32 | DI.MRI.S_ITS ---
PROCEDURE: MR LUMBAR SPINE WO/W CON INDICATIONS: Hx of back surgery;recurrent back pain;leg weaknes TECHNIQUE: Noncontrast sagittal T1 spin echo and T2 fast echo, sagittal STIR, and T2 fast spin echo through the lumbar spine. In cases with scoliosis, additional coronal T2 fast spin echo may be performed. COMPARISON: None. FINDINGS: Alignment and Curvature: There is normal bony alignment. Bone Marrow: L4-5 discectomy and fusion with ajay and screw instrumentation in good position Spinal Cord: Conus medullaris terminates at the L1 level. Visualized cord demonstrates normal signal and size. Paraspinous Soft Tissues: No paravertebral masses. T12-L1: No central or foraminal stenosis L1-L2: Disc bulge and arthropathy. Ligamentum flavum laxity. Moderate central stenosis. Severe bilateral foraminal stenosis L2-L3: Disc bulge and arthropathy. Ligamentum flavum laxity. Dorsal epidural fat Moderate central stenosis. Moderate bilateral foraminal stenosis L3-L4: Disc bulge and arthropathy. Moderate central stenosis. Severe right and moderate left foraminal stenosis L4-L5: Discectomy and fusion. Mild central stenosis. No foraminal stenosis. L5-S1: Disc bulge and arthropathy. No central stenosis. Moderate bilateral foraminal stenosis IMPRESSION: Multilevel degenerative disc disease and arthropathy results in varying degrees of central and foraminal stenosis including moderate central stenosis L1-2, L2-3, L3-4 with severe foraminal stenosis L1-2, L3-4 Instrumented discectomy and fusion L4-5 Approved by: Tony Couch M.D. on 06/01/2025 at 16:12
== END ==
LOC: MRI 19:30
PROVIDERS: PCP Family Medicine; Referring Provider Family Medicine; Visit Provider Family Medicine
DX: M51.360 Other intervertebral disc degeneration, lumbar region with discogenic back pain only (principal); M51.370 Other intervertebral disc degeneration, lumbosacral region with discogenic back pain only; M48.061 Spinal stenosis, lumbar region without neurogenic claudication; M48.07 Spinal stenosis, lumbosacral region; M47.816 Spondylosis without myelopathy or radiculopathy, lumbar region; M47.817 Spondylosis without myelopathy or radiculopathy, lumbosacral region; Z98.1 Arthrodesis status
CPT/HCPCS: 72158; A9579

== ENCOUNTER 2025-06-12 08:06 | Emergency (ER) | payer MEDICARE, OTHER, SELFPAY ==
[2025-01-16 13:49] VITALS: BMI 26.6
[2025-06-12] VITALS (15 sets, daily range): BP systolic 112–180; BP diastolic 57–94; PULSE 50–74; RESP 10–21; TEMP 36.4; O2SAT 84–99; BMI 27.0
--- NOTE | 2025-06-12 08:22 | ED_ITS ---
HPI - GI Bleed
--- NOTE | 2025-06-12 08:22 | ED.GIBLEED ---
HPI - GI Bleed General Chief complaint: GI Bleed Stated complaint: Dark Rectal bleeding 7 days getting worse Time Seen by Provider: 06/12/25 08:18 Source: patient Mode of arrival: Ambulatory History of Present Illness HPI Narrative: 75y M jhx of cad 5 vessel bypass and 3 stents on ASA, htn, hld, gerd/barretts esophagus, depression, prostate ca, chronic low back pain presents with intermittent rectal bleeding for the past month. Pt reports using ibuprofen, tylenol and is already on meloxicam for his chronic back pain. He denies chest pain, sob, apple, lightheaded, dizziness but does endorse back pain. Other than what is stated 14 pt ROS is negative. Related Data Home Medications ?Medication ?Instructions ?Recorded ?Confirmed aspirin 81 mg tablet,delayed 81 mg PO DAILY 09/11/18 04/02/25 release betamethasone dipropionate 0.05 % 1 applic topical QD-BID PRN 11/06/23 04/02/25 topical cream leuprolide (3 month) 22.5 mg (3 22.5 mg SUBCUT [id number] Prostate 11/06/23 04/02/25 month) subcutaneous syringe Cancer ([facility]) fish oil-dha-epa PO 3XW 02/05/24 04/02/25 calcium carbonate 500 mg PO DAILY 06/25/24 04/02/25 magnesium 200 mg tablet 200 mg PO DAILY 06/25/24 04/02/25 Previous Rx's ?Medication ?Instructions ?Recorded atorvastatin 80 mg tablet 80 mg PO BEDTIME #90 tabs 02/05/24 nitroglycerin 0.4 mg sublingual 0.4 mg sublingual Q5M PRN chest 05/12/24 tablet pain #25 tabs fluticasone propionate 50 2 spray intranasal DAILY PRN 08/14/24 mcg/actuation nasal seasonal allergies #48 grams spray,suspension (Flonase Allergy Relief) sertraline 100 mg tablet 100 mg PO BID Depression #180 tabs 01/29/25 donepezil 10 mg tablet 10 mg PO BEDTIME #90 tabs 02/11/25 lisinopril 5 mg tablet 5 mg PO DAILY high blood pressure 04/27/25 #90 tabs pantoprazole 40 mg tablet,delayed 40 mg PO DAILY #90 tabs 05/13/25 release lamotrigine 150 mg tablet 150 mg PO BID Anti-seizure #180 06/05/25 tabs ciprofloxacin HCl 500 mg tablet 500 mg PO Q12H #14 tabs 06/12/25 (Cipro) metronidazole 500 mg tablet 500 mg PO Q8H 7 days #21 tabs 06/12/25 Allergies Allergy/AdvReac Type Severity Reaction Status Date / Time amlodipine AdvReac Severe foggy Verified 06/12/25 08:14 headed diltiazem AdvReac Severe Fatigued Verified 06/12/25 08:14 Review of Systems Review of Systems ROS Unobtainable: All systems reviewed & are unremarkable except as noted in HPI and below Patient History Medical History History of radiation therapy Androgen deprivation therapy Prostate cancer Urge incontinence Feeling of incomplete bladder emptying Hx of chest pain Obstructive sleep apnea BPH w urinary obs/LUTS Depression, major, recurrent Family history of prostate cancer Do not resuscitate Elevated PSA History of colonic polyps Alcohol use disorder Seizure disorder Allergic rhinitis Asthma, mild intermittent GERD without esophagitis Mixed hyperlipidemia Essential hypertension Seizures Dementia (~2019) Fractures Chronic back pain (~1968) Mumps (~1959) Measles (~1961) Cataracts, bilateral (~2010) History of elevated PSA (~2021) Hemorrhoid (~1979) Excessive drinking alcohol Memory changes Depression (~2011) Psoriasis Arthritis Orantes's esophagus (~1999) GERD (gastroesophageal reflux disease) Heart murmur Myocardial infarction (~2009) CAD (coronary artery disease) (~2002) Hyperlipidemia HTN (hypertension) Numbness and tingling Seizures Surgical History Hx of circumcision Anesthesia Hx of microdiscectomy (~1993) Hx of hernia repair Hx of tonsillectomy History of vasectomy Hx of appendectomy (~2003) Hx of heart artery stent (~2009) 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) Status post cataract extraction and insertion of intraocular lens of right eye (08/01/11) Family History Father History of heart disease Mother History of heart disease Brother Prostate cancer History of heart disease Brother Cardiac arrhythmia Social History marital status: details: (Nupur) number of children: 1 household members: spouse occupational status: other Smoking Status: Never smoker alcohol intake: current substance use type: marijuana caffeine: Yes Type(s) of exercise: walking frequency: daily duration: 60-90 minutes/day Smoking Status: Never smoker alcohol intake frequency: 3 or more drinks per day Exam Narrative Exam Narrative: GENERAL: [75] year old patient appears stated age. Well-developed patient, in mild distress. HEAD: Atraumatic. Normocephalic. EYES: Pupils equal round and reactive. Extraocular motions intact. No scleral icterus. No injection or drainage. ENT: Nose without bleeding, purulent drainage. Throat without erythema, tonsillar hypertrophy or exudate. Airway patent. NECK: Trachea midline. Non tender CARDIOVASCULAR: Regular rate and rhythm without murmurs, gallops, or rubs. RESPIRATORY: Clear to auscultation. Breath sounds equal bilaterally. No wheezes, rales, or rhonchi. GASTROINTESTINAL: Abdomen soft, non-tender, nondistended. EXTREMITIES: No edema or joint tenderness. Rectum: No hemorrhoids or fissure. Guiac neg BACK: Nontender without deformity or crepitance. No flank tenderness. NEURO: AOx3. SKIN: No rash or erythema of visible areas Initial Vital Signs Initial Vital Signs: Vital Signs Temperature 97.5 F L 06/12/25 08:12 Pulse Rate 62 06/12/25 08:12 Respiratory Rate 18 06/12/25 08:12 Blood Pressure 180/73 H 06/12/25 08:12 Pulse Oximetry 97 06/12/25 08:12 Oxygen Delivery Method Room Air 06/12/25 08:12 Course Orders Ordered: ED Orders 06/12/25 08:20 Complete Blood Count AUTO DIFF Stat Comprehensive Metabolic Panel Stat Lipase Stat 06/12/25 08:41 GI Bleed [CT angio Abd/Pel GI Bleed] Stat EKG-12 Lead Stat Ondansetron HCl (Ondansetron 4 Mg/2 Ml Inj) 4 mg IV NOW PRN PRN Reason: Nausea And Vomiting Ondansetron HCl (Ondansetron 4 Mg Odt) 4 mg PO NOW PRN PRN Reason: Nausea And Vomiting Discontinued Medications Pantoprazole Sodium (Pantoprazole 40 Mg Vial) 40 mg IV NOW ONE Stop: 06/12/25 09:14 Last Admin: 06/12/25 10:11 Dose: 40 mg Documented By: RB Vital Signs Vital signs: Vital Signs - 8 hr 06/12/25 08:12 06/12/25 08:13 06/12/25 08:30 Temperature 97.5 F L Pulse Rate 62 63 58 L Respiratory Rate 18 19 Blood Pressure 180/73 H Pulse Oximetry 97 97 98 Oxygen Delivery Method Room Air 06/12/25 08:58 06/12/25 08:58 06/12/25 09:00 Temperature Pulse Rate 55 L 54 L Respiratory Rate 12 15 Blood Pressure 150/67 H Pulse Oximetry 98 97 Oxygen Delivery Method 06/12/25 09:00 06/12/25 09:30 06/12/25 09:30 Temperature Pulse Rate 50 L Respiratory Rate 19 Blood Pressure 133/61 131/61 Pulse Oximetry 94 Oxygen Delivery Method 06/12/25 10:01 06/12/25 10:03 06/12/25 10:03 Temperature Pulse Rate 64 Respiratory Rate 10 L Blood Pressure 146/94 H Pulse Oximetry 84 L 99 Oxygen Delivery Method MDM - GI Bleed Lab Data 06/12/25 08:20 06/12/25 08:20 Labs: Lab Results 06/12/25 Range/Units 08:20 WBC 6.3 (4.5-11.0) X10^3/uL RBC 3.76 L (4.5-5.9) X10^6/uL Hgb 12.1 L (13.5-17.5) g/dL Hct 35.2 L (41-53) % MCV 93.7 (80-100) fL MCH 32.1 (26-34) PG MCHC 34.3 (30-36) % RDW 14.0 (11.6-14.8) % Plt Count 177 (150-400) X10^3/uL Neut % (Auto) 80.6 H (50-75) % Lymph % (Auto) 11.0 L (25-40) % [place] % (Auto) 7.1 (3-14) % Eos % (Auto) 1.0 L (2-4) % Baso % (Auto) 0.3 (0-2) % Neut # (Auto) 5100 (0599-5541) /uL Lymph # (Auto) 700 L (3519-7274) /uL [place] # (Auto) 400 (0-900) /uL Eos # (Auto) 100 (0-450) /uL Baso # (Auto) 0 (0-100) /uL Sodium 136 L (137-145) mmol/L Potassium 4.2 (3.4-5.1) mmol/L Chloride 102 (98-107) mmol/L Carbon Dioxide 25 (22-32) mmol/L BUN 24 H (9-20) mg/dL Creatinine 0.84 (0.66-1.25) mg/dL Estimated GFR > 60 (>60) mL/min BUN/Creatinine Ratio 28.6 H (6-22) Glucose 114 H (70-99) mg/dL Calcium 9.3 (8.4-10.2) mg/dL Total Bilirubin 0.9 (0.2-1.3) mg/dL AST 43 (17-59) IU/L ALT 25 (<50) IU/L Alkaline Phosphatase 76 (38-126) U/L Total Protein 7.4 (6.3-8.2) g/dL Albumin 4.5 (3.5-5.0) g/dL Globulin 2.9 (1.7-4.1) g/dL Albumin/Globulin Ratio 1.6 (1.0-2.8) Lipase 72 (23-300) U/L Imaging Data CT scan - abdomen/pelvis: Radiologist's Impression: [place] [address] CT Scan Report Signed Patient: Manolo Whittington MR#: [id number] : 1950 Acct:[id number] Age/Sex: 75 / M Date of Service: 06/12/25 Loc: ED Accession Number: [id number] Procedure: CT angio Abd/Pel GI Bleed Ordering Provider: Sammy Salcedo D.O. PROCEDURE: CT ANGIO ABD/PEL GI BLEED INDICATIONS: GI Bleed TECHNIQUE: After the administration of intravenous contrast, 2.5 mm thick sections acquired from the diaphragm to the symphysis. 10 mm maximum-intensity projection (MIP) reformats were then acquired. For radiation dose reduction, the following was used: automated exposure control. COMPARISON: None. FINDINGS: Image Quality: Diagnostic. Abdominal aorta: No aortic aneurysm or evidence of acute aortic syndrome. Mesenteric arteries: Patent without hemodynamically significant stenosis. Renal arteries: Patent without hemodynamically significant stenosis. OTHER: Lower Chest: No significant findings. Liver: No solid mass. Gallbladder: Luminal stones without wall thickening. Biliary ducts: No biliary dilation. Pancreas: No ductal dilation. Spleen: Size is within normal limits. Adrenal Glands: No adrenal nodules. Kidneys and Ureters: No hydronephrosis. No solid mass. No complex renal cystic lesion which requires follow up. Stomach and Bowel: Normal colonic caliber, without significant wall thickening. Hiatal hernia. Colonic diverticula are present. There is thickening and inflammatory change within the distal sigmoid colon. No abscess. Thickening extends to the rectum. Peritoneum: No abnormal intraperitoneal fluid. No free air. Ventral Wall: No hernia. Abdominal Nodes: No retroperitoneal or mesenteric adenopathy by size criteria. Vessels: Aorta and inferior vena cava are normal in size. PELVIS: Pelvic Organs: Unremarkable. Bladder: Unremarkable. Pelvic Nodes: No enlarged lymph nodes. Miscellaneous: No inguinal hernias are seen. Bones: No aggressive osseous abnormality. L4 through L5 fusion. IMPRESSION: Rectosigmoid colonic diverticula with thickening and inflammatory change. No abscess. Appearance is overall most consistent with colitis secondary diverticulitis. Recommend interval follow-up to document resolution exclude presence of underlying mass lesion. No areas of contrast extravasation to suggest acute hemorrhage. Cholelithiasis without cholecystitis. ECG Data Interpretation: Sinus Narciso HR 57 MT 192 QRS [address]-t wave change Unchanged from 09/21/23 [facility] Narrative Medical decision making narrative: All lab work, vital signs, nurse triage note, medication list, previous ER visits, and all imaging studies reviewed. WBC 6.3 hemoglobin 12.1 platelet 177 sodium 136 potassium 4.2 chloride 102 CO2 25 BUN 24 Cr 0.84 glucose [address] normal lipase 72. [address] abdomen and pelvis showed rectosigmoid colonic. diverticula with thickening and inflammatory change no abscess. Appearance is overall most consistent with colitis secondary to diverticulitis. No area of contrast extravasation to suggest acute hemorrhage. Cholelithiasis without cholecystitis. Patient will be discharged on Cipro Flagyl. Patient offered admission but declined. Discharge Plan Departure Clinical Impression: Diverticulitis Instructions: DI for Diverticulitis Activity Restrictions/Additional Instructions: Return with new or worsening symptoms. Take medicines directed. Clear liquid diet advance as tolerated. Follow up PCP next week if no improvement in symptoms. Prescriptions: New ciprofloxacin HCl [Cipro] 500 mg tablet 500 mg PO Q12H Qty: 14 0RF metronidazole 500 mg tablet 500 mg PO Q8H 7 Days Qty: 21 0RF No Action fluticasone propionate [Flonase Allergy Relief] 50 mcg/actuation spray,suspension 2 spray INTRANASAL DAILY PRN (Reason: seasonal allergies) Qty: 48 3RF sertraline 100 mg tablet 100 mg PO BID Qty: 180 2RF donepezil 10 mg tablet 10 mg PO BEDTIME Qty: 90 0RF Rx Instructions: Needs appointment with PCP prior to next refill 02/11/25 - 05/06/25 lisinopril 5 mg tablet 5 mg PO DAILY Qty: 90 0RF Rx Instructions: APPT DUE WITH PCP PRIOR TO END OF RX/FUTURE FILLS. PLEASE CALL TO SCHEDULE FUTURE APPT. THANKS 04/27/25. pantoprazole 40 mg tablet,delayed release (DR/EC) 40 mg PO DAILY Qty: 90 0RF lamotrigine 150 mg tablet 150 mg PO BID Qty: 180 3RF nitroglycerin 0.4 mg tablet, sublingual 0.4 mg sublingual Q5M PRN (Reason: chest pain) Qty: 25 3RF Rx Instructions: do not exceed 3 doses per episode atorvastatin 80 mg tablet 80 mg PO BEDTIME Qty: 90 3RF Eligard (3 month) 22.5 mg syringe 22.5 mg SUBCUT [id number] betamethasone dipropionate 0.05 % cream 1 applic topical QD-BID PRN aspirin 81 mg Tablet,Delayed Release (Dr/Ec) 81 mg PO DAILY magnesium 200 mg tablet 200 mg PO DAILY calcium carbonate 500 mg calcium (1,250 mg) tablet 500 mg PO DAILY fish oil-dha-epa PO 3XW Referrals: Florin Henderson MD [Primary Care Provider, Family Practice]
--- NOTE | 2025-06-12 08:41 | DI.CT.S_ITS ---
PROCEDURE: CT ANGIO ABD/PEL GI BLEED
--- NOTE | 2025-06-12 08:41 | EKG_ITS ---
[facility]
[2025-06-12 08:47] LABS: Add Manual Diff / Slide Review NO; Hematocrit 35.2 % (41-53); Hemoglobin 12.1 g/dL (13.5-17.5); Lymphocytes Absolute Auto 700 /uL (1100-4500); Mean Corpuscular HGB Conc 34.3 % (30-36); Mean Corpuscular Hemoglobin 32.1 PG (26-34); Mean Corpuscular Volume 93.7 fL (80-100); Platelet Count 177 X10^3/uL (150-400)
[2025-06-12 08:52] LABS: Alanine Aminotransferase 25 IU/L (<50); Albumin 4.5 g/dL (3.5-5.0); Albumin Globulin Ratio 1.6 (1.0-2.8); Alkaline Phosphatase 76 U/L (38-126); Blood Urea Nitrogen 24 mg/dL (9-20); Calcium 9.3 mg/dL (8.4-10.2); Carbon Dioxide 25 mmol/L (22-32); Chloride 102 mmol/L (98-107); Estimated Glomerular Filt Rate > 60 mL/min (>60); Globulin 2.9 g/dL (1.7-4.1); Glucose 114 mg/dL (70-99); HEMOLYSIS < 15 (0-50); Lipase 72 U/L (23-300); Potassium 4.2 mmol/L (3.4-5.1); Sodium 136 mmol/L (137-145); Total Protein 7.4 g/dL (6.3-8.2)
[2025-06-12] MEDS: PANTOPRAZOLE 40 MG VIAL IV (10:11)
[2025-06-12] MEDS: metroNIDAZOLE 500 MG/100 ML PIGGYBACK 100 MG IV (10:45)
[2025-06-12 11:17] LABS: Culture Indicated Urine Cult Not Indicated
[2025-06-12] MEDS: CIPROFLOXACIN 400 MG/200 ML PIGGYBACK 200 MG IV (11:19)
== END 2025-06-12 12:41 | disposition home or self-care (01) ==
PROVIDERS: Emergency Provider Family Medicine; PCP Family Medicine
DX: K57.92 Diverticulitis of intestine, part unspecified, without perforation or abscess without bleeding (principal)
CPT/HCPCS: 36415; 74174; 80053; 81003; 81015; 83690; 85025; 93005; 96365; 96367; 96375; 99284; J0744; J2470; Q9967

== ENCOUNTER 2025-06-13 13:20 | Emergency (ER) | payer MEDICARE, OTHER, SELFPAY ==
[2025-01-16 13:49] VITALS: BMI 26.6
[2025-06-13 13:32] VITALS: BP 219/86; PULSE 71; RESP 16; TEMP 37.2; O2SAT 97; BMI 23.7
--- NOTE | 2025-06-13 13:37 | ED_ITS ---
HPI - Abdominal Pain
--- NOTE | 2025-06-13 13:37 | ED.ABDPAIN ---
HPI - Abdominal Pain General Chief Complaint: Abdominal Pain Stated Complaint: GI bleed Time Seen by Provider: 06/13/25 13:27 History of Present Illness HPI narrative: 75-year-old gentleman history of CAD with bypass and stents on aspirin, hypertension, dyslipidemia, GERD Orantes's esophagus, depression, prostate cancer, chronic low back pain seen yesterday for intermittent rectal bleeding for the past month. Patient reports using ibuprofen Tylenol on top of the meloxicam he was using for his chronic back pain was seen by me yesterday where the workup showed rectal sigmoid colonic diverticula with thickening inflammatory changes no abscess. Appearances overall most consistent with colitis secondary to diverticulitis. No area of contrast extravasation to suggest acute hemorrhage. Patient was given antibiotics to go home on but reported that he started to have bleeding again and was feeling lightheaded and came in to be evaluated. Other than what is stated 14 point review of system is negative. Related Data Home Medications ?Medication ?Instructions ?Recorded ?Confirmed aspirin 81 mg tablet,delayed 81 mg PO DAILY 09/11/18 04/02/25 release betamethasone dipropionate 0.05 % 1 applic topical QD-BID PRN 11/06/23 04/02/25 topical cream leuprolide (3 month) 22.5 mg (3 22.5 mg SUBCUT [id number] Prostate 11/06/23 04/02/25 month) subcutaneous syringe Cancer ([facility]) fish oil-dha-epa PO 3XW 02/05/24 04/02/25 calcium carbonate 500 mg PO DAILY 06/25/24 04/02/25 magnesium 200 mg tablet 200 mg PO DAILY 06/25/24 04/02/25 Previous Rx's ?Medication ?Instructions ?Recorded atorvastatin 80 mg tablet 80 mg PO BEDTIME #90 tabs 02/05/24 nitroglycerin 0.4 mg sublingual 0.4 mg sublingual Q5M PRN chest 05/12/24 tablet pain #25 tabs fluticasone propionate 50 2 spray intranasal DAILY PRN 08/14/24 mcg/actuation nasal seasonal allergies #48 grams spray,suspension (Flonase Allergy Relief) sertraline 100 mg tablet 100 mg PO BID Depression #180 tabs 01/29/25 donepezil 10 mg tablet 10 mg PO BEDTIME #90 tabs 02/11/25 lisinopril 5 mg tablet 5 mg PO DAILY high blood pressure 04/27/25 #90 tabs pantoprazole 40 mg tablet,delayed 40 mg PO DAILY #90 tabs 05/13/25 release lamotrigine 150 mg tablet 150 mg PO BID Anti-seizure #180 06/05/25 tabs ciprofloxacin HCl 500 mg tablet 500 mg PO Q12H #14 tabs 06/12/25 (Cipro) metronidazole 500 mg tablet 500 mg PO Q8H 7 days #21 tabs 06/12/25 Allergies Allergy/AdvReac Type Severity Reaction Status Date / Time amlodipine AdvReac Severe foggy Verified 06/12/25 08:14 headed diltiazem AdvReac Severe Fatigued Verified 06/12/25 08:14 Patient History Medical History History of radiation therapy Androgen deprivation therapy Prostate cancer Urge incontinence Feeling of incomplete bladder emptying Hx of chest pain Obstructive sleep apnea BPH w urinary obs/LUTS Depression, major, recurrent Family history of prostate cancer Do not resuscitate Elevated PSA History of colonic polyps Alcohol use disorder Seizure disorder Allergic rhinitis Asthma, mild intermittent GERD without esophagitis Mixed hyperlipidemia Essential hypertension Seizures Dementia (~2019) Fractures Chronic back pain (~1968) Mumps (~1959) Measles (~1961) Cataracts, bilateral (~2010) History of elevated PSA (~2021) Hemorrhoid (~1979) Excessive drinking alcohol Memory changes Depression (~2011) Psoriasis Arthritis Orantes's esophagus (~1999) GERD (gastroesophageal reflux disease) Heart murmur Myocardial infarction (~2009) CAD (coronary artery disease) (~2002) Hyperlipidemia HTN (hypertension) Numbness and tingling Seizures Surgical History Hx of circumcision Anesthesia Hx of microdiscectomy (~1993) Hx of hernia repair Hx of tonsillectomy History of vasectomy Hx of appendectomy (~2003) Hx of heart artery stent (~2009) 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) Status post cataract extraction and insertion of intraocular lens of right eye (08/01/11) Family History Father History of heart disease Mother History of heart disease Brother Prostate cancer History of heart disease Brother Cardiac arrhythmia Social History marital status: details: (Nupur) number of children: 1 household members: spouse occupational status: other alcohol intake: current substance use type: marijuana caffeine: Yes Type(s) of exercise: walking frequency: daily duration: 60-90 minutes/day alcohol intake frequency: 3 or more drinks per day Exam Initial Vital Signs Initial Vital Signs: Vital Signs Temperature 98.9 F 06/13/25 13:32 Pulse Rate 71 06/13/25 13:32 Respiratory Rate 16 06/13/25 13:32 Blood Pressure 219/86 H 06/13/25 13:32 Pulse Oximetry 97 06/13/25 13:32 Oxygen Delivery Method Room Air 06/13/25 13:32 Course Orders Ordered: ED Orders 06/13/25 13:40 EKG-12 Lead Stat 06/13/25 13:43 Complete Blood Count AUTO DIFF Stat Comprehensive Metabolic Panel Stat Lipase Stat Lactated Ringer's (Lactated Ringers) 1,000 mls @ 1,000 mls/hr IV BOLUS ONE Stop: 06/13/25 14:39 Last Admin: 06/13/25 13:55 Dose: 1,000 mls/hr Documented By: MARII Ondansetron HCl (Ondansetron 4 Mg/2 Ml Inj) 4 mg IV NOW PRN PRN Reason: Nausea And Vomiting Ondansetron HCl (Ondansetron 4 Mg Odt) 4 mg PO NOW PRN PRN Reason: Nausea And Vomiting Discontinued Medications Pantoprazole Sodium (Pantoprazole 40 Mg Vial) 40 mg IV NOW ONE Stop: 06/13/25 13:38 Last Admin: 06/13/25 13:55 Dose: 40 mg Documented By: MARII Vital Signs Vital signs: Vital Signs - 8 hr 06/13/25 13:32 Temperature 98.9 F Pulse Rate 71 Respiratory Rate 16 Blood Pressure 219/86 H Pulse Oximetry 97 Oxygen Delivery Method Room Air MDM - Abdominal Pain Lab Data 06/13/25 13:43 06/13/25 13:43 Labs: Lab Results 06/13/25 Range/Units 13:43 WBC 5.1 (4.5-11.0) X10^3/uL RBC 3.82 L (4.5-5.9) X10^6/uL Hgb 12.2 L (13.5-17.5) g/dL Hct 35.4 L (41-53) % MCV 92.5 (80-100) fL MCH 31.8 (26-34) PG MCHC 34.4 (30-36) % RDW 13.8 (11.6-14.8) % Plt Count 192 (150-400) X10^3/uL Neut % (Auto) 81.3 H (50-75) % Lymph % (Auto) 11.4 L (25-40) % [place] % (Auto) 6.5 (3-14) % Eos % (Auto) 0.3 L (2-4) % Baso % (Auto) 0.5 (0-2) % Neut # (Auto) 4100 (5169-2517) /uL Lymph # (Auto) 600 L (0495-5508) /uL [place] # (Auto) 300 (0-900) /uL Eos # (Auto) 0 (0-450) /uL Baso # (Auto) 0 (0-100) /uL Sodium 138 (137-145) mmol/L Potassium 4.2 (3.4-5.1) mmol/L Chloride 101 (98-107) mmol/L Carbon Dioxide 25 (22-32) mmol/L BUN 22 H (9-20) mg/dL Creatinine 0.91 (0.66-1.25) mg/dL Estimated GFR > 60 (>60) mL/min BUN/Creatinine Ratio 24.2 H (6-22) Glucose 92 (70-99) mg/dL Calcium 9.6 (8.4-10.2) mg/dL Total Bilirubin 0.8 (0.2-1.3) mg/dL AST 32 (17-59) IU/L ALT 27 (<50) IU/L Alkaline Phosphatase 80 (38-126) U/L Total Protein 7.7 (6.3-8.2) g/dL Albumin 4.7 (3.5-5.0) g/dL Globulin 3.0 (1.7-4.1) g/dL Albumin/Globulin Ratio 1.6 (1.0-2.8) Lipase 55 (23-300) U/L ECG Data Interpretation: Sinus Narciso HR 59 [address] 172 QRS [address]-t wave change Unchanged from 06/12/25 MDM Narrative Medical decision making narrative: All lab work, vital signs, nurse triage note, medication list, previous ER visits, and all imaging studies reviewed. WBC 5.1 hemoglobin 12.2 hematocrit 35.4 platelets 192 sodium 138 potassium 4.2 chloride 101 CO2 25 BUN 22 creatinine 0.91 glucose 92 LFTs all normall lipase 55. Patient given fluids Cipro Flagyl Protonix Discharge Plan Departure Patient Disposition: Home Clinical Impression: Acute diverticulitis Prescriptions: No Action fluticasone propionate [Flonase Allergy Relief] 50 mcg/actuation spray,suspension 2 spray INTRANASAL DAILY PRN (Reason: seasonal allergies) Qty: 48 3RF sertraline 100 mg tablet 100 mg PO BID Qty: 180 2RF donepezil 10 mg tablet 10 mg PO BEDTIME Qty: 90 0RF Rx Instructions: Needs appointment with PCP prior to next refill 02/11/25 - 05/06/25 lisinopril 5 mg tablet 5 mg PO DAILY Qty: 90 0RF Rx Instructions: APPT DUE WITH PCP PRIOR TO END OF RX/FUTURE FILLS. PLEASE CALL TO SCHEDULE FUTURE APPT. THANKS 04/27/25. pantoprazole 40 mg tablet,delayed release (DR/EC) 40 mg PO DAILY Qty: 90 0RF lamotrigine 150 mg tablet 150 mg PO BID Qty: 180 3RF nitroglycerin 0.4 mg tablet, sublingual 0.4 mg sublingual Q5M PRN (Reason: chest pain) Qty: 25 3RF Rx Instructions: do not exceed 3 doses per episode atorvastatin 80 mg tablet 80 mg PO BEDTIME Qty: 90 3RF Eligard (3 month) 22.5 mg syringe 22.5 mg SUBCUT [id number] betamethasone dipropionate 0.05 % cream 1 applic topical QD-BID PRN ciprofloxacin HCl [Cipro] 500 mg tablet 500 mg PO Q12H Qty: 14 0RF metronidazole 500 mg tablet 500 mg PO Q8H 7 Days Qty: 21 0RF aspirin 81 mg Tablet,Delayed Release (Dr/Ec) 81 mg PO DAILY magnesium 200 mg tablet 200 mg PO DAILY calcium carbonate 500 mg calcium (1,250 mg) tablet 500 mg PO DAILY fish oil-dha-epa PO 3XW Referrals: Florin Henderson MD [Primary Care Provider, Family Practice] Stand Alone Forms: Patient Portal/API
--- NOTE | 2025-06-13 13:40 | EKG_ITS ---
[facility]
[2025-06-13 13:53] LABS: Add Manual Diff / Slide Review NO; Hematocrit 35.4 % (41-53); Hemoglobin 12.2 g/dL (13.5-17.5); Lymphocytes Absolute Auto 600 /uL (1100-4500); Mean Corpuscular HGB Conc 34.4 % (30-36); Mean Corpuscular Hemoglobin 31.8 PG (26-34); Mean Corpuscular Volume 92.5 fL (80-100); Platelet Count 192 X10^3/uL (150-400)
[2025-06-13] MEDS: LACTATED RINGERS 1,000 ML 1000 ML IV (13:55)
[2025-06-13] MEDS: PANTOPRAZOLE 40 MG VIAL IV (13:55)
[2025-06-13 14:04] LABS: Alanine Aminotransferase 27 IU/L (<50); Albumin 4.7 g/dL (3.5-5.0); Albumin Globulin Ratio 1.6 (1.0-2.8); Alkaline Phosphatase 80 U/L (38-126); Blood Urea Nitrogen 22 mg/dL (9-20); Calcium 9.6 mg/dL (8.4-10.2); Carbon Dioxide 25 mmol/L (22-32); Chloride 101 mmol/L (98-107); Estimated Glomerular Filt Rate > 60 mL/min (>60); Globulin 3.0 g/dL (1.7-4.1); Glucose 92 mg/dL (70-99); HEMOLYSIS < 15 (0-50); Lipase 55 U/L (23-300); Potassium 4.2 mmol/L (3.4-5.1); Sodium 138 mmol/L (137-145); Total Protein 7.7 g/dL (6.3-8.2)
[2025-06-13] MEDS: metroNIDAZOLE 500 MG/100 ML PIGGYBACK 100 MG IV (14:47)
--- NOTE | 2025-06-13 15:15 | P.CONS_ITS ---
History of Present Illness
--- NOTE | 2025-06-13 15:15 | PM.CN.IH.1 ---
History of Present Illness Consult details Date Patient Seen: 06/13/25 Time Patient Seen: 14:55 Chief complaint: GI bleed Reason for consult: GI bleed Requesting provider: Sammy Salcedo Narrative: 75-year-old man with a history of coronary artery disease, hypertension, hyperlipidemia, GERD, depression, prostate cancer, and chronic low back pain presented with intermittent rectal bleeding for the past month. He has moderate dementia and is unable to provide a significant history, however was seen in the emergency department yesterday and diagnosed with diverticulitis and started on Cipro. He has not able to remember this or relate details, but chart history notes that he has been using ibuprofen and Tylenol in addition to chronic meloxicam for back pain. Abdominopelvic CT noted colonic diverticula with thickening and inflammatory change. He was discharged on ciprofloxacin and metronidazole and instructed to follow up with his primary care provider. He notes that his is out of town and he drove himself to the emergency department today, but is unable to provide additional information, stating that his knows most of the details of his medical care. Meds Home Medications and Allergies Home Medications ?Medication ?Instructions ?Recorded ?Confirmed ?Type aspirin 81 mg tablet,delayed 81 mg PO DAILY 09/11/18 04/02/25 History release betamethasone dipropionate 0.05 % 1 applic topical QD-BID PRN 11/06/23 04/02/25 History topical cream leuprolide (3 month) 22.5 mg (3 22.5 mg SUBCUT [id number] Prostate 11/06/23 04/02/25 History month) subcutaneous syringe Cancer ([facility]) atorvastatin 80 mg tablet 80 mg PO BEDTIME #90 tabs 02/05/24 04/02/25 Rx fish oil-dha-epa PO 3XW 02/05/24 04/02/25 History nitroglycerin 0.4 mg sublingual 0.4 mg sublingual Q5M PRN chest 05/12/24 04/02/25 Rx tablet pain #25 tabs calcium carbonate 500 mg PO DAILY 06/25/24 04/02/25 History magnesium 200 mg tablet 200 mg PO DAILY 06/25/24 04/02/25 History fluticasone propionate 50 2 spray intranasal DAILY PRN 08/14/24 04/02/25 Rx mcg/actuation nasal seasonal allergies #48 grams spray,suspension (Flonase Allergy Relief) sertraline 100 mg tablet 100 mg PO BID Depression #180 tabs 01/29/25 04/02/25 Rx donepezil 10 mg tablet 10 mg PO BEDTIME #90 tabs 02/11/25 04/02/25 Rx lisinopril 5 mg tablet 5 mg PO DAILY high blood pressure 04/27/25 Rx #90 tabs pantoprazole 40 mg tablet,delayed 40 mg PO DAILY #90 tabs 05/13/25 Rx release lamotrigine 150 mg tablet 150 mg PO BID Anti-seizure #180 06/05/25 Rx tabs ciprofloxacin HCl 500 mg tablet 500 mg PO Q12H #14 tabs 06/12/25 Rx (Cipro) metronidazole 500 mg tablet 500 mg PO Q8H 7 days #21 tabs 06/12/25 Rx Allergies Allergy/AdvReac Type Severity Reaction Status Date / Time amlodipine AdvReac Severe foggy Verified 06/12/25 08:14 headed diltiazem AdvReac Severe Fatigued Verified 06/12/25 08:14 Review of Systems Review of Systems ROS: Yes All systems reviewed with the patient and are negative except as otherwise documented Exam Vital Signs (past 8 hours): - 06/13/25 13:32 Temperature 98.9 F Pulse Rate 71 Respiratory Rate 16 Blood Pressure 219/86 H Pulse Oximetry 97 Oxygen Delivery Method Room Air Oxygen Delivery Method Room Air Narrative Exam Narrative: GENERAL: This is a well-nourished, well-developed patient, in no apparent distress. HEAD: Atraumatic. Normocephalic. No temporal or scalp tenderness. EYES: Pupils equal round and reactive. Extraocular motions intact. No scleral icterus. No injection or drainage. ENT: Mucous membranes pink and moist. NECK: Trachea midline. No JVD, bruits or lymphadenopathy. Supple, nontender, no meningeal signs. CARDIOVASCULAR: Regular rate and rhythm without murmurs, gallops, or rubs. RESPIRATORY: Clear to auscultation. GASTROINTESTINAL: Abdomen soft, non-tender, nondistended. EXTREMITIES: No clubbing, cyanosis, or edema. BACK: Nontender without deformity or crepitance. No flank tenderness. NEUROLOGIC: Alert, oriented to person and place, speech fluent, full upper and lower motor strength, no focal deficits evident. DERMATOLOGIC: No rashes or skin lesions. Objective ECG Impression: EKG: Sinus bradycardia at 59 beats per minute, occasional PVCs, anterior Q-waves, no acute ischemic changes. Imaging CT scan - abdomen: Radiologist's impression: CT a abdomen pelvis 06/12/2025: Rectosigmoid colonic diverticula with thickening and inflammatory change. No abscess. Appearance is overall most consistent with colitis secondary diverticulitis. Recommend interval follow-up to document resolution exclude presence of underlying mass lesion. No areas of contrast extravasation to suggest acute hemorrhage. Cholelithiasis without cholecystitis. Labs 06/13/25 13:43 06/13/25 13:43 Labs: Laboratory Results - last 24 hr 06/13/25 13:43 WBC 5.1 RBC 3.82 L Hgb 12.2 L Hct 35.4 L MCV 92.5 MCH 31.8 MCHC 34.4 RDW 13.8 Plt Count 192 Neut % (Auto) 81.3 H Lymph % (Auto) 11.4 L Craven % (Auto) 6.5 Eos % (Auto) 0.3 L Baso % (Auto) 0.5 Neut # (Auto) 4100 Lymph # (Auto) 600 L Craven # (Auto) 300 Eos # (Auto) 0 Baso # (Auto) 0 Sodium 138 Potassium 4.2 Chloride 101 Carbon Dioxide 25 BUN 22 H Creatinine 0.91 Estimated GFR > 60 BUN/Creatinine Ratio 24.2 H Glucose 92 Calcium 9.6 Total Bilirubin 0.8 AST 32 ALT 27 Alkaline Phosphatase 80 Total Protein 7.7 Albumin 4.7 Globulin 3.0 Albumin/Globulin Ratio 1.6 Lipase [facility] History Alcohol use disorder Allergic rhinitis Androgen deprivation therapy Arthritis Asthma, mild intermittent Orantes's esophagus (~1999) BPH w urinary obs/LUTS CAD (coronary artery disease) (~2002) Cataracts, bilateral (~2010) Chronic back pain (~1968) Dementia (~2019) Depression (~2011) Depression, major, recurrent Do not resuscitate Elevated PSA Essential hypertension Excessive drinking alcohol Family history of prostate cancer Feeling of incomplete bladder emptying Fractures GERD (gastroesophageal reflux disease) GERD without esophagitis Heart murmur Hemorrhoid (~1979) History of colonic polyps History of elevated PSA (~2021) History of radiation therapy HTN (hypertension) Hx of chest pain Hyperlipidemia Measles (~1961) Memory changes Mixed hyperlipidemia Mumps (~1959) Myocardial infarction (~2009) Numbness and tingling Obstructive sleep apnea Prostate cancer Psoriasis Seizure disorder Seizures Seizures Urge incontinence Surgical History Anesthesia History of vasectomy Hx of appendectomy (~2003) Hx of circumcision Hx of heart artery stent (~2009) Hx of hernia repair Hx of microdiscectomy (~1993) Hx of tonsillectomy 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) Status post cataract extraction and insertion of intraocular lens of right eye (08/01/11) Family History Father History of heart disease Mother History of heart disease Brother Prostate cancer History of heart disease Brother Cardiac arrhythmia Social History marital status: details: (Nupur) number of children: 1 household members: spouse occupational status: other Tobacco & Substance Use alcohol intake: current substance use type: marijuana Diet and Exercise caffeine: Yes Type(s) of exercise: walking frequency: daily duration: 60-90 minutes/day Assessment & Plan Assessment & Plan narrative: 1. Acute sigmoid diverticulitis. 2. GI bleed, likely due to 1., with concomitant use of aspirin, ibuprofen and meloxicam. 3. Dementia. 4. Coronary artery disease. 5. Hypertension. 6. Hyperlipidemia. 7. GERD. 8. Chronic back pain. 9. History of prostate cancer, on ADT Discussion: The patient is not having new symptoms from yesterday, and due to his dementia it appears that he is a poor historian and not able to state whether symptoms are better, worse or the same. He has a benign exam and stable blood counts at this point. It would be reasonable to continue with outpatient care and close monitoring with family for worsening of symptoms. Should there be clear-cut worsening of symptoms then hospital admission and observation would be reasonable. I wish to thank Dr. Salcedo for consulting the hospitalist service on this delightful patient. We will be happy to be at your disposal for any further care needs. PROFEE Charge Codes Inpatient or Observation consultation: [id number]
[2025-06-13 16:01] VITALS: BP 139/63; PULSE 68; RESP 16; O2SAT 98
== END 2025-06-13 16:05 | disposition home or self-care (01) ==
PROVIDERS: Emergency Provider Family Medicine; PCP Family Medicine
DX: K57.92 Diverticulitis of intestine, part unspecified, without perforation or abscess without bleeding (principal); Z86.79 Personal history of other diseases of the circulatory system; Z95.5 Presence of coronary angioplasty implant and graft; Z85.46 Personal history of malignant neoplasm of prostate
CPT/HCPCS: 36415; 80053; 81003; 83690; 85025; 93005; 96361; 96365; 96375; 99284; J2470; J7120

== ENCOUNTER → 2025-06-15 09:31 | Outpatient (CLI) | payer MEDICARE, OTHER, SELFPAY ==
[2025-01-16 13:49] VITALS: BMI 26.6
[2025-06-15 11:19] LABS: Prostate Specific Antigen < 0.064 ng/mL (0.10-4.00)
== END ==
PROVIDERS: PCP Family Medicine; Referring Provider Urology; Visit Provider Urology
DX: N40.1 Benign prostatic hyperplasia with lower urinary tract symptoms (principal); N13.8 Other obstructive and reflux uropathy
CPT/HCPCS: 36415; 84153